=== PATIENT | male | born 1985 | race American Indian/Alaskan Native ===

== ENCOUNTER 2017-06-10 07:03 | Day surgery (SDC) | payer MEDICAID ==
[2017-06-10] MEDS ORDERED: Lidocaine 2% Jelly (Uro-Jet) ONE (09:57)
[2017-06-10] MEDS ORDERED: cefTRIAXone (Rocephin) 1 gm Inj ONE (09:57)
[2017-06-10] MEDS ORDERED: Chlorhexidine Gluconate 2OZ GEL TP ONE (10:25)
[2017-06-10] MEDS ORDERED: Iohexol 240 200 ML IJ ONE ×2 (10:25→11:00)
[2017-06-10] MEDS ORDERED: Lactated Ringer's 1,000 ML IV ONE (10:33)
[2017-06-10] MEDS ORDERED: Midazolam 2 MG/2 ML VIAL ONE ×3 (10:33→10:59)
[2017-06-10] MEDS ORDERED: cefTRIAXone (Rocephin) 1 gm Inj IVPB ONE (10:45)
[2017-06-10] MEDS ORDERED: Propofol 10 mg/ml Inj (20 ML) ONE (11:05)
[2017-06-10] MEDS ORDERED: Lactated Ringer's 1,000 ML IV SCH (11:21)
[2017-06-10] MEDS: HYDROmorphone 0.5 mg/0.5 ml ISec IVP PRN ×3 (11:30→12:00)
[2017-06-10 11:37] VITALS: O2SAT 100
--- NOTE | 2017-06-10 13:53 | RAD ---
PROCEDURE: Intraoperative Fluoroscopy. HISTORY: CYSTO FINDINGS: Fluoroscopic assistance was provided for cystoscopy and retrograde. fluoroscopic time (continuous mode) utilized during the procedure: 0.3 minutes.
[2017-06-10 14:12] VITALS: BP 124/70; PULSE 85; RESP 19; TEMP 97.2
--- NOTE | 2017-06-11 02:33 | OP ---
DATE: 06/10/2017 PREOPERATIVE DIAGNOSIS: Recurrent urinary tract infection. POSTOPERATIVE DIAGNOSIS: Recurrent urinary tract infection. PROCEDURE PERFORMED: Cystoscopy with a cystogram and a retrograde pyelogram on the left side. DESCRIPTION OF THE PROCEDURE: The patient was placed on the operating table in the dorsal lithotomy position. The area was prepped and draped in a sterile manner. Using a #21 cystoscope, I entered into bladder atraumatically and without much difficulty and once inside the bladder, bilateral ureteral orifices were identified. At this time, I did first an initial cystogram under pressure to see if there was any evidence of vesicoureteral reflux and consequently the bladder was filled quite distinctively. I added abdominal pressure for added measure and did not confirm any vesicoureteral reflux something that he had, had in the past diagnosed. Following this, then I emptied the bladder and then re-cystoscoped the patient identified the left urethral orifice, inserted a cone tip ureteral catheter and injected 10 mL of contrast in the lower half of the ureter to show that there was no hydroureter and no stricture. Then, advanced the ureteral catheter to the mid ureter, injected another 10 mL identified the outline of the renal pelvis and the renal . There was no hydronephrosis. Immediately, after removing the ureteral catheter, most of the dye was eliminated proper. With this information noted, the patient then was taken from the operating room in good condition. Kristin Mckeon MD
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
== END 2017-06-10 16:00 | disposition home or self-care (01) ==
LOC: H.OPSURG 07:03
PROVIDERS: ATTEND Urology
DX: N39.0 Urinary tract infection, site not specified (principal)

== ENCOUNTER 2017-06-10 14:06 | Emergency (ER) | payer MEDICAID ==
[2017-06-10 14:49] VITALS: RESP 19
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
[2017-06-10 15:56] VITALS: BP 126/78; PULSE 78; TEMP 97.6
[2017-06-10 18:43] VITALS: O2SAT 96
== END 2017-06-10 15:56 | disposition home or self-care (01) ==
LOC: H.ER 14:06
DX: F41.9 Anxiety disorder, unspecified (principal); R45.851 Suicidal ideations; Z79.01 Long term (current) use of anticoagulants

== ENCOUNTER 2017-10-07 13:42 | Emergency (ER) | payer MEDICAID ==
[2017-10-07 14:19] VITALS: BMI 48.6
[2017-10-07 14:21] VITALS: BP 115/73; PULSE 92; RESP 18; TEMP 98.1; O2SAT 99
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
[2017-10-07] MEDS ORDERED: Morphine 5 MG/ML SYRINGE IM STA (16:22)
[2017-10-07] MEDS ORDERED: Morphine 4 MG/ML VIAL IM STA (16:35)
[2017-10-07] MEDS ORDERED: Morphine 4 MG/ML VIAL ONE (16:37)
--- NOTE | 2017-10-07 18:21 | US ---
Left lower extremity ultrasound. Indication: Rule out DVT Technique: Duplex ultrasound evaluation of the left lower extremity Comparison: None available Findings: There is normal flow, compressibility, and augmentation of the left common femoral, femoral, and popliteal veins. The left posterior tibial veins appear patent. Impression: No evidence of deep venous thrombosis in the left lower extremity.
== END 2017-10-07 19:14 | disposition home or self-care (01) ==
LOC: H.ER 13:42
DX: M79.605 Pain in left leg (principal); Z76.0 Encounter for issue of repeat prescription; F32.9 Major depressive disorder, single episode, unspecified; F41.9 Anxiety disorder, unspecified; J45.909 Unspecified asthma, uncomplicated; Z86.718 Personal history of other venous thrombosis and embolism; Z88.5 Allergy status to narcotic agent
CPT/HCPCS: 93971; 96372; 99283; J2270

== ENCOUNTER 2017-10-10 23:41 | Emergency (ER) | payer MEDICAID ==
[2017-10-10 23:41] VITALS: BMI 48.6
--- NOTE | 2017-10-11 00:23 | ED PDOC ---
HPI: Psych/Substance Abuse Time Seen by Provider: 10/10/17 23:57 Chief Complaint (Nursing): Psychiatric Evaluation Chief Complaint (Provider): psych eval Additional Complaint(s): 32yo M in ED for eval of depression-states that today he has been feeling more depressed than usual-states that he has been self harming via cutting left upper arm. no SI/HI. hx of bipolar not taking medication nor seeing a psychiatrist. Past Medical History Reviewed: Historical Data, Nursing Documentation, Vital Signs Vital Signs: Last Vital Signs Temp 98.1 F 10/11/17 00:10 Pulse 103 H 10/11/17 00:10 Resp 18 10/11/17 00:10 BP 147/78 10/11/17 00:10 Pulse Ox 98 10/11/17 00:10 - Medical History PMH: Anxiety, Asthma, Depression, Deep Vein Thrombosis Denies: Anemia, Diabetes, Hepatitis, HIV, HTN, Chronic Kidney Disease, Seizures, Sexually Transmitted Disease - Surgical History Surgical History: Tonsillectomy - Family History Family History: States: Unknown Family Hx - Home Medications Home Medications: Ambulatory Orders Medication Instructions Recorded Imipramine HCl 25 mg PO BID 06/10/17 Phenazopyridine HCl [Pyridium] 200 mg PO BID #10 tablet 06/10/17 Rivaroxaban [Xarelto] 20 mg PO DAILY 06/10/17 Rivaroxaban [Xarelto] 1 tab PO DAILY #10 tab 10/07/17 - Allergies Allergies/Adverse Reactions: Allergies Allergy/AdvReac Type Severity Reaction Status Date / Time fentanyl Allergy SHORTNESS Verified 10/11/17 00:10 OF BREATH sulfamethoxazole Allergy SHORTNESS Verified 10/11/17 00:10 [From Bactrim] OF BREATH trimethoprim [From Bactrim] Allergy SHORTNESS Verified 10/11/17 00:10 OF BREATH acetaminophen [From Percocet] AdvReac VOMITING Verified 10/11/17 00:10 oxycodone [From Percocet] AdvReac VOMITING Verified 10/11/17 00:10 Review of Systems ROS Statement: Except As Marked, All Systems Reviewed And Found Negative Psych: Positive for: Depression Physical Exam - Reviewed Nursing Documentation Reviewed: Yes Vital Signs Reviewed: Yes - Physical Exam Appears: Positive for: Well, Non-toxic, No Acute Distress Head Exam: Positive for: ATRAUMATIC, NORMAL INSPECTION, NORMOCEPHALIC Skin: Positive for: Normal Color, Warm, Rash (abrasion noted to left upper arm. no active bleeding. ) Cardiovascular/Chest: Positive for: Regular Rate, Rhythm Respiratory: Positive for: CNT, Normal Breath Sounds Neurologic/Psych: Positive for: Alert, Oriented - ECG O2 Sat by Pulse Oximetry: 98 - Progress ED Course And Treament: pt in room with friend. pt will get crisis evaluation. Medical Decision Making Medical Decision Making: pt will be d.c with dx of depression under Md Musa pt feels stable to go home. Disposition - Clinical Impression Clinical Impression: Depression - Patient ED Disposition Is Patient to be Admitted: No Counseled Patient/Family Regarding: Need For Followup - Disposition Disposition: Routine/Home Disposition Time: 01:33 Condition: STABLE Instructions: Depression (DC) Forms: Official [employer] (Liberian)
[2017-10-11 02:21] VITALS: BP 141/80; PULSE 86; RESP 17; TEMP 98; O2SAT 99
== END 2017-10-11 01:50 | disposition home or self-care (01) ==
LOC: H.ER 23:41
DX: F32.9 Major depressive disorder, single episode, unspecified (principal); F41.9 Anxiety disorder, unspecified; J45.909 Unspecified asthma, uncomplicated; Z86.718 Personal history of other venous thrombosis and embolism; Z88.5 Allergy status to narcotic agent

== ENCOUNTER 2017-12-13 03:50 | Inpatient (IN) | payer MEDICAID ==
[2017-12-13 03:51] VITALS: BMI 48.6
--- NOTE | 2017-12-13 04:23 | ED PDOC ---
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 Patient states he hasn't been taking his blood thinners because he feels depressed about it but denies suicidal or homicidal ideation. PMD: Dr. Fu Past Medical History Reviewed: Historical Data, Nursing Documentation, Vital Signs Vital Signs: Last Vital Signs Temp 98.3 F 12/13/17 04:08 Pulse 80 12/13/17 06:22 Resp 18 12/13/17 06:22 BP 100/67 12/13/17 06:22 Pulse Ox 98 12/13/17 06:22 - Medical History PMH: Anxiety, Asthma, Depression, Deep Vein Thrombosis, Pulmonary Embolism Denies: Anemia, Diabetes, Hepatitis, HIV, HTN, Chronic Kidney Disease, Seizures, Sexually Transmitted Disease Other PMH: Protein S Deficiency - Surgical History Surgical History: Tonsillectomy - Family History Family History: States: Unknown Family Hx - Home Medications Home Medications: Ambulatory Orders Medication Instructions Recorded Warfarin [Coumadin] 5 mg PO DAILY 12/13/17 - Allergies Allergies/Adverse Reactions: Allergies Allergy/AdvReac Type Severity Reaction Status Date / Time fentanyl Allergy SHORTNESS Verified 12/13/17 05:26 OF BREATH sulfamethoxazole Allergy SHORTNESS Verified 12/13/17 05:26 [From Bactrim] OF BREATH trimethoprim [From Bactrim] Allergy SHORTNESS Verified 12/13/17 05:26 OF BREATH acetaminophen [From Percocet] AdvReac VOMITING Verified 12/13/17 05:26 oxycodone [From Percocet] AdvReac VOMITING Verified 12/13/17 05:26 Review of Systems ROS Statement: Except As Marked, All Systems Reviewed And Found Negative Constitutional: Positive for: Fever ENT: Positive for: Nose Congestion Respiratory: Positive for: Cough, Shortness of Breath Psych: Positive for: Depression. Negative for: Suicidal ideation, Other ( homicidal ideation) Physical Exam - Physical Exam Appears: Positive for: Non-toxic, No Acute Distress. Negative for: Well (obese) Head Exam: Positive for: ATRAUMATIC, NORMAL INSPECTION, NORMOCEPHALIC Skin: Positive for: Normal Color, Warm, Dry Eye Exam: Positive for: EOMI, Normal appearance, PERRL ENT: Positive for: Normal ENT Inspection Neck: Positive for: Normal, Painless ROM, Supple Cardiovascular/Chest: Positive for: Regular Rate, Rhythm. Negative for: Murmur Respiratory: Positive for: Normal Breath Sounds. Negative for: Respiratory Distress Gastrointestinal/Abdominal: Positive for: Normal Exam, Bowel Sounds, Soft. Negative for: Tenderness Back: Positive for: Normal Inspection Extremity: Positive for: Normal ROM. Negative for: Pedal Edema, Calf Tenderness , Deformity, Other (Jose's Sign) Neurologic/Psych: Positive for: Alert, Oriented - Laboratory Results Result Diagrams: 12/13/17 04:43 12/13/17 04:43 - ECG O2 Sat by Pulse Oximetry: 100 (RA) Pulse Ox Interpretation: Normal Medical Decision Making Medical Decision Making: Time: 4:17 Initial Impression: Viral Illness vs Influenza rule out Pulmonary Embolism Initial Plan: --EKG --BMP --Troponin --CBC --D Dimer --PTT --Prothrombin Time --Chest XR --Toradol --Phenergan --Flu Swab 0700 IMPRESSION: There is a filling defect identified within a RIGHT lower lobe segmental pulmonary artery branch on axial image 64/133 of series 3. Although the bolus is poor and there is misregistration artifact in this region, it is conspicuous enough to be of concern for a tiny pulmonary embolus. In a similar location on the LEFT involving LEFT lower lobe pulmonary subsegmental vessels, there are suspected areas of misregistration which are not diagnostically evaluated due to misregistration of the bolus combined with motion involving these petering vessels. Spoke with patient, will treat w/ lovenox for suspected PE. Case discussed with Dr. Arreaga. Scribe Attestation: Documented by Bruce Jackman, acting as a scribe for Dr. Bob Holguin MD Provider Scribe Attestation: All medical record entries made by the Scribe were at my direction and personally dictated by me. I have reviewed the chart and agree that the record accurately reflects my personal performance of the history, physical exam, medical decision making, and the department course for this patient. I have also personally directed, reviewed, and agree with the discharge instructions and disposition. Disposition - Clinical Impression Clinical Impression: Pulmonary embolism - Disposition Referrals: Paras Ross MD [Primary Care Provider] - Disposition Time: 07:00 Condition: GUARDED Forms: [facility] (Luxembourgish)
[2017-12-13] MEDS ORDERED: Promethazine 12.5 mg/10 ml Syrup PO STA (04:24)
[2017-12-13] MEDS ORDERED: Promethazine 6.25 MG/5 ML CUP ONE (04:26)
[2017-12-13 04:59] LABS: BLOOD UREA NITROGEN 9 mg/dl (9-20); CALCIUM 8.7 mg/dL (8.4-10.2); GFR AFRICAN-AMERICAN > 60; GFR NON-AFRICAN AMERICAN > 60
[2017-12-13 05:01] LABS: INR 1.1 (0.9-1.2); PARTIAL THROMBOPLASTIN TIME 23.8 Seconds (25.6-37.1)
[2017-12-13] MEDS ORDERED: Iodixanol 320 MG/ML 100 ML BOTTLE IV ONE (05:36)
[2017-12-13] MEDS ORDERED: Sodium Chloride 0.9% 50 ML IV ONE (05:37)
[2017-12-13] MEDS ORDERED: Iodixanol 320 mg/ml 50 ml Sol IV ONE (05:37)
[2017-12-13 06:03] LABS: BASO % 0.5 % (0.0-2.0); EOS # 0.3 K/uL (0.0-0.7); HEMOGLOBIN 12.6 g/dL (12.0-18.0); LYMPH # 1.9 K/uL (1.0-4.3); LYMPH % 21.8 % (20.0-40.0); MEAN CELL VOLUME 78.8 fl (80.0-94.0); MEAN CORPUSCULAR HEMOGLOBIN 24.8 pg (27.0-31.0); MEAN CORPUSCULAR HGB CONC 31.5 g/dL (33.0-37.0); MEAN PLATELET VOLUME 8.1 fl (7.2-11.7); MONO # 0.6 K/uL (0.0-0.8); MONO % 7.6 % (0.0-10.0); NEUT # 5.6 K/uL (1.8-7.0); NEUT % 66.1 % (50.0-75.0); NRBC % 0.1 % (0.0-0.0); RBC 5.09 Mil/uL (4.40-5.90); RED CELL DISTRIBUTION WIDTH 19.2 % (11.5-14.5); WHITE BLOOD COUNT 8.5 K/uL (4.8-10.8)
--- NOTE | 2017-12-13 07:03 | CT ---
EXAM: CT Angiography Chest With Intravenous Contrast EXAM DATE/TIME: Examination ordered 12/13/2017 5:12 AM. Image number total count reviewed [id number] CLINICAL HISTORY: The patient is 32 years old and is male; Pain; Chest pain; Additional info: HX of mult pe/dvts, cp, SOB Facility exam id and description: [facility] angio chest pe protocol TECHNIQUE: Axial computed tomographic angiography images of the chest with intravenous contrast using pulmonary embolism protocol. All CT scans at this facility use one or more dose reduction techniques, viz.: automated exposure control; ma/kV adjustment per patient size (including targeted exams where dose is matched to indication; i.e. head); or iterative reconstruction technique. MIP reconstructed images were created and reviewed. Coronal and sagittal reformatted images were created and reviewed. CONTRAST: 120 mL of administered intravenously. COMPARISON: CR - CHEST TWO VIEWS (PA/LAT) 2017-12-13 04:35 FINDINGS: LIMITATIONS: The study is compromised by patient body habitus. PULMONARY ARTERIES: There is a filling defect identified within a RIGHT lower lobe segmental pulmonary artery branch on axial image 64/133 of series 3. The contrast bolus is adequately timed. AORTA: The thoracic aorta is unremarkable without aneurysm or dissection. LUNGS: Evaluation of the pulmonary parenchyma reveals NO suspicious pulmonary nodules. NO focal consolidation. PLEURAL SPACE: NO pleural effusions are identified. No pneumothorax. HEART: Heart size is enlarged. There is NO pericardial effusion. No evidence of RV dysfunction. BONES/JOINTS: No acute fracture. SOFT TISSUES: Unremarkable. LYMPH NODES: There is NO appreciable hilar, mediastinal or axillary lymphadenopathy. UPPER ABDOMEN: In the upper abdomen, NO discrete abnormality is seen. IMPRESSION: There is a filling defect identified within a RIGHT lower lobe segmental pulmonary artery branch on axial image 64/133 of series 3. Although the bolus is poor and there is misregistration artifact in this region, it is conspicuous enough to be of concern for a tiny pulmonary embolus. In a similar location on the LEFT involving LEFT lower lobe pulmonary subsegmental vessels, there are suspected areas of misregistration which are not diagnostically evaluated due to misregistration of the bolus combined with motion involving these petering vessels.
[2017-12-13] MEDS ORDERED: Enoxaparin 150 mg Syringe SC STA (07:20)
--- NOTE | 2017-12-13 09:52 | RAD ---
HISTORY: Chest pain. Shortness of breath. COMPARISON: Chest 09/04/2017 TECHNIQUE: Chest PA and lateral FINDINGS: LUNGS: No active pulmonary disease. PLEURA: No significant pleural effusion identified. No pneumothorax apparent. CARDIOVASCULAR: Normal. OSSEOUS STRUCTURES: Very minor multilevel degenerative spondylosis of the thoracic spine. Tech. VISUALIZED UPPER ABDOMEN: Normal. OTHER FINDINGS: None. IMPRESSION: No active disease.
--- NOTE | 2017-12-13 11:14 | CARD ---
APPROVED REPORT EKG Measurement Heart [id number] ND [id number] <Conclusion> Normal sinus rhythm Cannot rule out Anterior infarct, age undetermined (Check placement of V2 and V3 leads) Abnormal ECG
[2017-12-13] MEDS ORDERED: Azithromycin 500 MG in Sodium Chloride 0.9% 250 ML IVPB SCH (13:30)
--- NOTE | 2017-12-13 14:06 | NM ---
COMPARISON: December 13, 2017. single-view chest December 13, 2017. CT pulmonary angiogram TECHNIQUE: 42.8 mCi technetium 99-m DTPA aerosol. 5.46 mCI technetium 99-m MAA administered intravenously. FINDINGS: VENTILATION COMPONENT: Heterogeneous ventilation. Retention of radionuclide in the tracheobronchial tree and ingestion of radionuclide in the stomach, incidental findings PERFUSION COMPONENT: Heterogeneous profusion particularly in the periphery of the right lung and IMPRESSION: Low probability ventilation perfusion scan for pulmonary embolism.
[2017-12-13] MEDS: Promethazine 12.5 mg/10 ml Syrup PO PRN (22:24)
--- NOTE | 2017-12-14 00:05 | HP ---
CHIEF COMPLAINT: Chest pain, fever, cough, and congestion. HISTORY OF PRESENT ILLNESS: This is a 32-year-old male with known case of protein S deficiency who was on Coumadin jail and had stopped taking it for a few weeks ago and was feeling sick for the last few days and started having fever, cough, congestion and also started having chest pain and shortness of breath, so the patient was brought to the emergency room, then the patient was found to have pulmonary embolism and was admitted for further management. REVIEW OF SYSTEMS: Positive for fever, cough, congestion, dyspnea, chest pain, and shortness of breath. Review of systems otherwise is negative for headache, dizziness, syncope, loss of consciousness, nausea, vomiting, diarrhea, constipation, anemia, joint or extremity pain. Review of systems of all other organ system is unremarkable. PAST MEDICAL HISTORY: Significant for protein S deficiency, DVT and pulmonary embolism in the past, asthma, depression, and anxiety. PAST SURGICAL HISTORY: Remarkable for tonsillectomy. PERSONAL HISTORY: The patient is currently nonsmoker and nondrinker. No substance abuse. MEDICATIONS: The patient was supposed to be on warfarin, but the patient was not taking it recently. ALLERGIES: THE PATIENT IS ALLERGIC TO FENTANYL, BACTRIM, TYLENOL, AND PERCOCET. FAMILY HISTORY: Noncontributory. PHYSICAL EXAMINATION: GENERAL: Well-built, well-nourished, grossly overweight 32-year-old male, in no acute distress. VITAL SIGNS: Temperature 98.4, pulse 94, respirations 20, and blood pressure 124/77. HEENT: Pupils reacting to light. No JVD. No thyromegaly. No lymphadenopathy. No nystagmus. Normocephalic and atraumatic skull. HEART: S1 and S2 normal and regular. No significant murmur, gallop, or rub is heard. LUNGS: Shows good bilateral air exchange. No rales or rhonchi. ABDOMEN: Soft and nontender. No organomegaly. No fluid. Bowel sounds are plus and normal. EXTREMITIES: No edema. No calf swelling. No tenderness. No acute ischemia. CENTRAL NERVOUS SYSTEM: Essentially unchanged and there is no sign of any acute gross focal motor or sensory neurological deficits. DIAGNOSTIC DATA: Available diagnostic data reviewed. WBC 8.5, hemoglobin 12.6, hematocrit 40.1, and platelets 289,000. PT 12 and PTT 23.8. Sodium 145, potassium 4.1, chloride 107, bicarb 24, BUN 18, and creatinine 0.9. Influenza test is negative. Chest x-ray is clear. EKG does not reveal any acute ST, T changes. CAT scan of chest is suggestive, but not conclusive of pulmonary embolism. V/Q scan is pending. ADMITTING IMPRESSION: Pulmonary embolism, protein S deficiency, upper respiratory tract infection, asthma, depression and anxiety, morbid obesity, and body mass index of 48.7. PLAN: As ordered. Case and plan discussed with the patient. Asael Arreaga MD
[2017-12-14] MEDS: Promethazine 12.5 mg/10 ml Syrup PO PRN ×2 (07:07→20:33)
[2017-12-14] MEDS ORDERED: Enoxaparin 60 mg Syringe SC SCH (09:00)
--- NOTE | 2017-12-14 09:03 | PN ---
DATE: 12/14/2017 SUBJECTIVE: The patient is seen and examined. Interim events noted. The patient remains in the Progressive Care Unit on telemetry monitoring. The patient feels okay. He states coughing . The patient has extensive snoring. The patient heart rate also went down during sleep consistent with sleep apnea. The patient denies any chest pain and no shortness of breath. PHYSICAL EXAMINATION: GENERAL: The patient is in no acute distress. VITAL SIGNS: Stable. HEART: S1 and S2, normal and regular. LUNGS: Good bilateral air exchange. ABDOMEN: Soft and nontender. EXTREMITIES: No edema. No calf swelling. No tenderness. No acute ischemia. CENTRAL NERVOUS SYSTEM: Exam is essentially unchanged. DIAGNOSTIC DATA: Available diagnostic data reviewed. Telemetry monitoring shows bradycardia, but no other significant arrhythmias. V/Q scan is negative. Serial labs are pending. ASSESSMENT AND PLAN: Overall, the patient is clinically stable. Plan as ordered. Asael Arreaga MD
[2017-12-14] MEDS: Enoxaparin 150 mg Syringe SC SCH ×2 (09:08→22:05)
[2017-12-14 17:00] LABS: PROTHROMBIN TIME 11.8 Seconds (9.8-13.1)
[2017-12-14 17:01] LABS: INR 1.1 (0.9-1.2)
[2017-12-14] MEDS ORDERED: Morphine 15 mg Immediate Release Tab PO ONE (20:12)
--- NOTE | 2017-12-14 21:05 | CON ---
DATE: HISTORY OF PRESENT ILLNESS: The patient is a 32-year-old morbidly obese male who weighs 320 pounds, who has a history of protein S deficiency, which runs in his family. His father had the same condition. The patient was diagnosed with multiple pulmonary embolism and multiple DVTs with total of 3 diagnoses of pulmonary emboli. The patient can remember that I saw him was last year. The patient was initially placed on Xarelto, but did not switch to Coumadin. The patient does follow with Dr. Gonzales at [facility] and could not give an explanation why he has to go to [facility] to follow up his lab results while he lives in [place]. The patient presented because of chest discomfort, shortness of breath, and wheezing. The patient is nonsmoker and according to him, nobody else smokes at home. The patient has no prior history of bronchial asthma. SOCIAL HISTORY: The patient is an occasional drinker. He is nonsmoker. 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 REVIEW OF SYSTEMS: No fever or chills. No productive cough. MEDICATIONS: Coumadin 5 mg daily, Lovenox 150 mg subcutaneously twice a day, Phenergan syrup 12.5 mg t.i.d., and Zithromax 500 mg orally daily. PHYSICAL EXAMINATION: GENERAL: The patient is a morbidly obese male who does not appear to be in any acute distress. VITAL SIGNS: Blood pressure 120/83, heart rate 78, temperature 98.2, and respirations 18. HEENT: Normocephalic. CHEST: Bilateral rhonchi. HEART: S1 and S2 regular and distant. ABDOMEN: Soft. EXTREMITIES: 1+ pitting edema. No calf tenderness. LABORATORY DATA: Hemoglobin, hematocrit, white count, and platelet count today are within limits. SMA-7 is within normal limits. One set of troponin is negative. D-dimer is 488. INR is 1.1. Ventilation/perfusion scan low probability for PE. Chest CT angio was subsequently performed and revealed a filling defect within the right lower lobe segment over the pulmonary artery branch, and there is artifact in the region. It is suspicious enough to be of concern for tiny pulmonary embolus. ASSESSMENT: 1. Recurrent pulmonary embolism. 2. Protein S deficiency. The patient's INR was significantly subtherapeutic. 3. Obesity. RECOMMENDATIONS: Continue therapeutic subcutaneous Lovenox and continue Coumadin 5 mg once a day. Continue oral Zithromax. Repeat chest EKG as there is possibility of lead V1 to V3 reversal. Obtain an echocardiogram and urine drug screen. Kelvin Valdez MD
[2017-12-15 02:09] LABS: BARBITURATES, UR NEGATIVE (NEGATIVE); BENZODIAZEPINES, UR NEGATIVE (NEGATIVE); OPIATES, UR NEGATIVE (NEGATIVE); PHENCYCLIDINE, UR NEGATIVE (NEGATIVE)
[2017-12-15 08:52] LABS: HEMOGLOBIN 12.2 g/dL (12.0-18.0); MEAN CELL VOLUME 78.8 fl (80.0-94.0); MEAN CORPUSCULAR HEMOGLOBIN 24.9 pg (27.0-31.0); MEAN CORPUSCULAR HGB CONC 31.6 g/dL (33.0-37.0); RBC 4.91 Mil/uL (4.40-5.90); RED CELL DISTRIBUTION WIDTH 19.5 % (11.5-14.5); WHITE BLOOD COUNT 7.6 K/uL (4.8-10.8)
[2017-12-15 08:58] LABS: INR 1.2 (0.9-1.2); PROTHROMBIN TIME 12.9 Seconds (9.8-13.1)
[2017-12-15 09:09] LABS: ALBUMIN 3.6 g/dL (3.5-5.0); ALT/SGPT 37 U/L (21-72); AST/SGOT 34 U/L (17-59); BLOOD UREA NITROGEN 9 mg/dl (9-20); CALCIUM 8.7 mg/dL (8.4-10.2); GFR AFRICAN-AMERICAN > 60; GFR NON-AFRICAN AMERICAN > 60
[2017-12-15] MEDS: Enoxaparin 150 mg Syringe SC SCH ×2 (09:17→20:54)
--- NOTE | 2017-12-15 11:11 | CARD ---
APPROVED REPORT EXAM: Two-dimensional and M-mode echocardiogram with Doppler and color Doppler. Other Information Quality : Technically LimitedRhythm : NSR Technically limited study due to body habitus. INDICATION Pulmonary Embolism 2D DIMENSIONS IVSd1.36 (0.7-1.1cm)LVDd4.77 (3.9-5.9cm) LVOT Diameter2.19 (1.8-2.4cm)PWd0.66 (0.7-1.1cm) IVSs1.63 (0.8-1.2cm)LVDs3.31 (2.5-4.0cm) FS (%) 30.5 %PWs1.81 (0.8-1.2cm) M-Mode DIMENSIONS Left Atrium (MM)3.78 (2.5-4.0cm)IVSd1.32 (0.7-1.1cm) Aortic Root2.72 (2.2-3.7cm)LVDd4.65 (4.0-5.6cm) Aortic Cusp Exc.1.21 (1.5-2.0cm)PWd1.25 (0.7-1.1cm) IVSs1.59 cmFS (%) 24 % LVDs3.55 (2.0-3.8cm)PWs1.47 cm Mitral Valve MV E Hqtxnbkz66.3cm/sMV DECEL [id number] A Ijelskev68.8cm/s MV PRB30faP/A ratio1.1MVA (PHT)3.03cm2 TDI Lateral E' Peak V9.61cm/sMedial E' Peak V10.76cm/sE/Lateral E'6.5 E/Medial E'5.8 Pulmonary Valve PV Peak Hgwgihns934.1cm/s LEFT VENTRICLE The left ventricle is normal size. There is normal left ventricular wall thickness. Left ventricle systolic function is normal. The Ejection Fraction is 55-60%. There is normal LV segmental wall motion. The left ventricular diastolic function is normal. RIGHT VENTRICLE The right ventricle is normal size. There is normal right ventricular wall thickness. The right ventricular systolic function is normal. ATRIA The left atrium size is normal. The right atrium size is normal. AORTIC VALVE The aortic valve is normal in structure. No aortic regurgitation is present. There is no aortic valvular stenosis. MITRAL VALVE The mitral valve is normal in structure. There is no evidence of mitral valve prolapse. There is no mitral valve stenosis. There is no mitral valve regurgitation noted. TRICUSPID VALVE The tricuspid valve is normal in structure. There is no tricuspid valve regurgitation noted. PULMONIC VALVE The pulmonary valve is normal in structure. There is no pulmonic valvular regurgitation. GREAT VESSELS The aortic root is normal in size. Due to poor image quality, the IVC could not be assessed. PERICARDIAL EFFUSION The pericardium appears normal. <Conclusion> Echo window was suboptimal. The images were poor in quality. The left ventricle is normal size. There is normal left ventricular wall thickness. There is normal LV segmental wall motion. Left ventricle systolic function is normal. The Ejection Fraction is 55-60%. The left ventricular diastolic function is normal.
--- NOTE | 2017-12-15 11:23 | CARD ---
APPROVED REPORT EKG Measurement Heart [id number] <Conclusion> Normal sinus rhythm Nonspecific ST abnormality Abnormal ECG
[2017-12-15] MEDS: Albuterol 0.042% Inhal Sol (1.25 mg/3 mL) UD INH SCH ×2 (14:11→19:43)
[2017-12-15] MEDS: Promethazine 12.5 mg/10 ml Syrup PO PRN ×2 (15:15→20:55)
--- NOTE | 2017-12-15 17:51 | PN ---
DATE: SUBJECTIVE: The patient denies any chest pain or any complaints of wheezing. PHYSICAL EXAMINATION: VITAL SIGNS: Blood pressure 119/87, heart rate 84, temperature 98, and respirations 18. HEENT: Normocephalic. CHEST: Bilateral rhonchi and minimal scattered wheezing. HEART: S1 and S2 regular. EXTREMITIES: With 1+ pitting edema. LABORATORY DATA: SMA-7 is within normal limits except for carbon dioxide of 32. Urine drug screen is negative. Hemoglobin, hematocrit, white count, and platelet count today are within normal limits. ASSESSMENT: 1. Recurrent pulmonary embolus. 2. Protein S deficiency. 3. Morbid obesity. 4. Bronchospasm. RECOMMENDATIONS: Continue therapeutic subcutaneous Lovenox 60 mg twice a day, continue oral Zithromax 500 mg daily, start albuterol inhaler q.6 hours., and Coumadin 7.5 mg will be administered today. Kelvin Valdez MD
[2017-12-16] MEDS: Albuterol 0.042% Inhal Sol (1.25 mg/3 mL) UD INH SCH ×4 (01:21→19:29)
[2017-12-16 06:04] LABS: HEMOGLOBIN 12.6 g/dL (12.0-18.0); MEAN CELL VOLUME 79.9 fl (80.0-94.0); MEAN CORPUSCULAR HEMOGLOBIN 24.4 pg (27.0-31.0); MEAN CORPUSCULAR HGB CONC 30.5 g/dL (33.0-37.0); RBC 5.17 Mil/uL (4.40-5.90); WHITE BLOOD COUNT 7.6 K/uL (4.8-10.8)
[2017-12-16 06:18] LABS: ALB/GLOB RATIO 1.1 (1.0-2.1); ALBUMIN 3.8 g/dL (3.5-5.0); ALT/SGPT 44 U/L (21-72); AST/SGOT 40 U/L (17-59); BLOOD UREA NITROGEN 9 mg/dl (9-20); CALCIUM 8.9 mg/dL (8.4-10.2); GFR AFRICAN-AMERICAN > 60; GFR NON-AFRICAN AMERICAN > 60
[2017-12-16 06:28] LABS: PROTHROMBIN TIME 19.1 Seconds (9.8-13.1)
[2017-12-16 06:29] LABS: INR 1.9 (0.9-1.2)
--- NOTE | 2017-12-16 07:58 | PN ---
DATE: 12/15/2017 SUBJECTIVE: The patient is seen and examined. Interim events noted. Consults noted and appreciated. Cardiology followup and interventions noted and appreciated. The patient remains in Progressive Care Unit on telemetry monitoring. The patient feels okay. No chest pain. No shortness of breath. Not able to sleep well. PHYSICAL EXAMINATION: GENERAL: The patient is in no acute distress. VITAL SIGNS: Stable. HEART: S1 and S2, normal and regular. LUNGS: Good bilateral air exchange. ABDOMEN: Soft and nontender. EXTREMITIES: No edema. No calf swelling. No tenderness. No acute ischemia. CENTRAL NERVOUS SYSTEM: Exam is essentially unchanged. DIAGNOSTIC DATA: Available diagnostic data reviewed. Telemetry monitoring does not reveal significant arrhythmias. PT/INR is still subtherapeutic. ASSESSMENT AND PLAN: The patient is on anticoagulation for his protein S deficiency. Also he is on Coumadin. PT and INR is being monitored. Plan as ordered. Case and plan discussed with the patient. Asael Arreaga MD
--- NOTE | 2017-12-16 08:31 | PQF GENQUE ---
This form is a permanent part of the medical record 12/16/17 Dr. Arreaga, Please clarify the type and acuity of asthma. 1. Please clarify type of asthma: Childhood Cough variant Exercise induced Late onset Mild intermittent Mild persistent Moderate persistent Severe persistent With bronchitis(please clarify acuity of bronchitis) With chronic lung disease (please document specific chronic lung disease) Other (please specify) Clinically unable to determine Unknown 2. Please clarify acuity of asthma: Uncomplicated With exacerbation(acute) With status asthmaticus Other (please specify) Clinically unable to determine Unknown Documentation of a history of Asthma. Being admitted for a pulmonary embolism. Progress note 12/15 cardiology noted some scattered minimal wheezing and started the patient on Albuterol inhaler q 6 hours. Clarification of your documentation is requested to better reflect the severity of illness and intensity of treatment of your patient. Indicators present [] Specify: [] [] Specify: [] [] Specify: [] [] Specify: [] Location in the medical record that reflects the above clinical findings: [] Treatment Provided: [] PHYSICIAN'S RESPONSE Based on your medical judgment of the clinical indicators outlined above please clarify the following: [] Practitioner response [] If unable to determine, please check the box, sign and date. Present On Admission (POA) Indicator: [] Present at the time of admission [] Not present at the time of admission [] Clinically Undetermined In responding to this query, please exercise your independent professional judgment. The fact that a question is asked does not imply that any particular answer is desired or expected. Thank you for your clarification on this documentation. If you have any questions please call:ext [phone] * Thank you, Rut Cristina RN CDMP MTDD
[2017-12-16] MEDS: Enoxaparin 150 mg Syringe SC SCH ×2 (09:52→22:12)
[2017-12-16] MEDS: Promethazine 12.5 mg/10 ml Syrup PO PRN ×3 (09:52→22:13)
--- NOTE | 2017-12-16 13:27 | PN ---
DATE: SUBJECTIVE: The patient is still wheezing. PHYSICAL EXAMINATION: VITAL SIGNS: Blood pressure 115/75, heart rate 86, temperature 97.3, and respirations 18. HEENT: Normocephalic. CHEST: Bilateral rhonchi and scattered wheezing. HEART: S1 and S2 regular. EXTREMITIES: Trace leg edema. LABORATORY DATA: Today's SMA-7 is within normal limits. Today's hemoglobin, hematocrit, white count and platelet count are within normal limits. Today's INR is 1.9. ASSESSMENT: 1. Recurrent pulmonary embolus. 2. Protein S deficiency. 3. Bronchospasm. RECOMMENDATIONS: Continue current oral Zithromax and therapeutic subcutaneous Lovenox. Increase Coumadin to 7.5 mg today. Obtain chest x-ray PA and lateral. Kelvin Valdez MD
--- NOTE | 2017-12-16 16:59 | RAD ---
HISTORY: Shortness of breath. COMPARISON: GO 2018. TECHNIQUE: Chest PA and lateral FINDINGS: LUNGS: No active pulmonary disease. PLEURA: No significant pleural effusion identified. No pneumothorax apparent. CARDIOVASCULAR: Normal. OSSEOUS STRUCTURES: No significant abnormalities. VISUALIZED UPPER ABDOMEN: Normal. OTHER FINDINGS: None. IMPRESSION: No active disease. No significant interval change compared to the prior examination(s).
[2017-12-17 00:45] VITALS: RESP 18
[2017-12-17] MEDS: Albuterol 0.042% Inhal Sol (1.25 mg/3 mL) UD INH SCH ×3 (01:05→14:12)
[2017-12-17 05:56] LABS: INR 2.1 (0.9-1.2)
[2017-12-17 06:38] LABS: ALT/SGPT 63 U/L (21-72); AST/SGOT 53 U/L (17-59); BLOOD UREA NITROGEN 9 mg/dl (9-20); GFR AFRICAN-AMERICAN > 60; GFR NON-AFRICAN AMERICAN > 60
--- NOTE | 2017-12-17 08:55 | PN ---
DATE: 12/16/2017 SUBJECTIVE: The patient seen and examined. Interim events noted. The patient feels okay. Denies any specific complaint of chest pain or shortness of breath. PHYSICAL EXAMINATION: GENERAL: The patient is in no acute distress. VITAL SIGNS: Stable. HEART: S1 and S2, normal and regular. LUNGS: Good bilateral air exchange. ABDOMEN: Soft and nontender. EXTREMITIES: . No tenderness. No acute ischemia. DIAGNOSTIC DATA: Available diagnostic data reviewed. Telemetry monitoring does not reveal significant arrhythmias. INR level is 1.9. ASSESSMENT AND PLAN: Overall, the patient is clinically stable. Plan as ordered. Asael Arreaga MD
[2017-12-17 09:00] VITALS: BP 109/76; TEMP 97.9; O2SAT 97
[2017-12-17] MEDS: Promethazine 12.5 mg/10 ml Syrup PO PRN (09:56)
[2017-12-17] MEDS: Enoxaparin 150 mg Syringe SC SCH (09:56)
[2017-12-17 12:12] VITALS: PULSE 98
--- NOTE | 2017-12-17 16:59 | CP.PCM.DIS ---
Provider - Provider Date of Admission: 12/14/17 18:37 Attending physician: Asael Arreaga MD Primary care physician: Paras Ross MD Time Spent in preparation of Discharge (in minutes): 30 Diagnosis - Discharge Diagnosis (1) Shortness of breath Status: Acute Hospital Course - Lab Results Lab Results: Most Recent Lab Values WBC 7.6 K/uL (4.8-10.8) 12/16/17 05:45 RBC 5.17 Mil/uL (4.40-5.90) 12/16/17 05:45 Hgb 12.6 g/dL (12.0-18.0) 12/16/17 05:45 Hct 41.3 % (35.0-51.0) 12/16/17 05:45 MCV 79.9 fl (80.0-94.0) L 12/16/17 05:45 MCH 24.4 pg (27.0-31.0) L 12/16/17 05:45 MCHC 30.5 g/dL (33.0-37.0) L 12/16/17 05:45 RDW 19.0 % (11.5-14.5) H 12/16/17 05:45 Plt Count 259 K/uL (130-400) 12/16/17 05:45 MPV 8.1 fl (7.2-11.7) 12/13/17 04:43 Neut % (Auto) 66.1 % (50.0-75.0) 12/13/17 04:43 Lymph % (Auto) 21.8 % (20.0-40.0) 12/13/17 04:43 [place] % (Auto) 7.6 % (0.0-10.0) 12/13/17 04:43 Eos % (Auto) 4.0 % (0.0-4.0) 12/13/17 04:43 Baso % (Auto) 0.5 % (0.0-2.0) 12/13/17 04:43 Neut # (Auto) 5.6 K/uL (1.8-7.0) 12/13/17 04:43 Lymph # (Auto) 1.9 K/uL (1.0-4.3) 12/13/17 04:43 [place] # (Auto) 0.6 K/uL (0.0-0.8) 12/13/17 04:43 Eos # (Auto) 0.3 K/uL (0.0-0.7) 12/13/17 04:43 Baso # (Auto) 0.0 K/uL (0.0-0.2) 12/13/17 04:43 PT 24.0 Seconds (9.8-13.1) H 12/17/17 04:20 INR 2.1 (0.9-1.2) H 12/17/17 04:20 APTT 23.8 Seconds (25.6-37.1) L 12/13/17 04:43 D-Dimer, Quantitative 488 ng/mlDDU (0-230) H 12/13/17 04:43 Sodium 144 mmol/l (132-148) 12/17/17 04:20 Potassium 4.2 MMOL/L (3.6-5.0) 12/17/17 04:20 Chloride 103 mmol/L (98-107) 12/17/17 04:20 Carbon Dioxide 28 mmol/L (22-30) 12/17/17 04:20 Anion Gap 17 (10-20) 12/17/17 04:20 BUN 9 mg/dl (9-20) 12/17/17 04:20 Creatinine 1.0 mg/dl (0.8-1.5) 12/17/17 04:20 Est GFR ( Amer) > 60 12/17/17 04:20 Est GFR (Non-Af Amer) > 60 12/17/17 04:20 Random Glucose 96 mg/dL (75-110) 12/17/17 04:20 Calcium 9.0 mg/dL (8.4-10.2) 12/17/17 04:20 Total Bilirubin 0.3 mg/dl (0.2-1.3) 12/17/17 04:20 AST 53 U/L (17-59) 12/17/17 04:20 ALT 63 U/L (21-72) 12/17/17 04:20 Alkaline Phosphatase 71 U/L (38-126) 12/17/17 04:20 Troponin I < 0.0120 ng/mL (0.00-0.120) 12/14/17 19:34 Total Protein 7.9 G/DL (6.3-8.2) 12/17/17 04:20 Albumin 4.0 g/dL (3.5-5.0) 12/17/17 04:20 Globulin 3.9 gm/dL (2.2-3.9) 12/17/17 04:20 Albumin/Globulin Ratio 1.0 (1.0-2.1) 12/17/17 04:20 TSH 3rd Generation 3.47 mIU/ML (0.46-4.68) 12/15/17 07:25 Urine Opiates Screen Negative (NEGATIVE) 12/15/17 01:44 Urine Methadone Screen Negative (NEGATIVE) 12/15/17 01:44 Ur Barbiturates Screen Negative (NEGATIVE) 12/15/17 01:44 Ur Phencyclidine Scrn Negative (NEGATIVE) 12/15/17 01:44 Ur Amphetamines Screen Negative (NEGATIVE) 12/15/17 01:44 U Benzodiazepines Scrn Negative (NEGATIVE) 12/15/17 01:44 U Oth Cocaine Metabols Negative (NEGATIVE) 12/15/17 01:44 U Cannabinoids Screen Negative (NEGATIVE) 12/15/17 01:44 Influenza Typ A,B (EIA) Negative for flu a/b (NEGATIVE) 12/13/17 04:43 - Hospital Course Hospital Course: 32 YO W/ known protien S deficiency who has not been compliant with Coumadin at home was admitted for SOB and chest pain. Chest CT was suggestive but not conclusive of PE. VQ scan showed low probability for PE. Patient symptoms have resolved. Advised to continue taking coumadin 6mg daily and follow up with PMD outpatient in next 2-3 days. INR is within therapeutic range. Discharge Exam - Head Exam Head Exam: ATRAUMATIC, NORMAL INSPECTION, NORMOCEPHALIC - Eye Exam Eye Exam: Normal appearance - ENT Exam ENT Exam: Mucous Membranes Moist - Respiratory Exam Respiratory Exam: Clear to PA & Lateral, NORMAL BREATHING PATTERN. absent: Rales, Wheezes - Cardiovascular Exam Cardiovascular Exam: REGULAR RHYTHM, +S1, +S2 - GI/Abdominal Exam GI & Abdominal Exam: Normal Bowel Sounds, Soft. absent: Tenderness - Skin Skin Exam: Normal Color, Warm Discharge Plan - Discharge Medications Prescriptions: Promethazine [Phenergan Syrup] 12.5 mg PO TID PRN #1 bottle PRN Reason: Cough Warfarin [Coumadin] 6 mg PO DAILY #5 tab - Follow Up Plan Condition: GOOD Disposition: HOME/ ROUTINE Additional Instructions: F/U with PMD in 2-3 days, if symptoms worsen please return to the ED. Referrals: Paras Ross MD [Primary Care Provider] -
== END 2017-12-17 13:00 | disposition home or self-care (01) | DRG 78 ==
LOC: H.ER 03:50 → INTOOBSV 07:10 → UNDOADMOB 07:10 → OBSVTOIN 07:10 → H.ERHOLD 07:10 → H.TEL 18:07 → H.ERHOLD 18:07 → H.TEL 12-14 18:37 → OBSVTOIN 12-14 18:37 → H.TEL 12-15 15:08
PROVIDERS: ADMIT Internal Medicine; ATTEND Internal Medicine
PROC: 3E0F7GC Introduction of Other Therapeutic Substance into Respiratory Tract, Via Natural or Artificial Opening (ICD-10-PCS; principal; 2017-12-15)
DX: I26.99 Other pulmonary embolism without acute cor pulmonale (principal); D68.59 Other primary thrombophilia; Z68.42 Body mass index [BMI] 45.0-49.9, adult; J40 Bronchitis, not specified as acute or chronic; J45.40 Moderate persistent asthma, uncomplicated; Z79.01 Long term (current) use of anticoagulants; Z86.711 Personal history of pulmonary embolism; Z86.718 Personal history of other venous thrombosis and embolism; Z91.14 Patient's other noncompliance with medication regimen; J02.9 Acute pharyngitis, unspecified; R06.83 Snoring; E66.01 Morbid (severe) obesity due to excess calories; F32.9 Major depressive disorder, single episode, unspecified; F41.9 Anxiety disorder, unspecified; G47.30 Sleep apnea, unspecified

== ENCOUNTER 2018-02-09 17:55 | Inpatient (IN) | payer MEDICAID ==
[2018-02-09 17:55] VITALS: BMI 48.6
--- NOTE | 2018-02-09 19:44 | ED PDOC ---
Arrival/HPI <Nikko Lee - Last Filed: 02/09/18 23:36> <Miles Licea - Last Filed: 02/10/18 01:52> - General Chief Complaint: GI Problem Time Seen by Provider: 02/09/18 19:07 - History of Present Illness Narrative History of Present Illness (Text): 02/09/18 19:43 33 y/o male, history of Protein S def, on Coumadin, presents to ER for evaluation of 2 days of hemoptysis, hematemesis, and hematochezia. Pt reports symptoms started suddenly 2 days ago and have been intermittent. He has had several episodes per day, mainly in the morning. Last episode was this morning, around 11am when he coughed up bright red blood within his mucous and had a bloody BM as well. Episode of hematemesis this morning. Associated with lightheadedness. No associated fatigue, CP/SOB/palpitations/SHEA. He also has had a headache since the bleeding began. Pain is 8/10, constant, nonradiating, aggravated by light, and no alleviating factors. Did not take any meds. Denies any neck stiffness, vision changes, weakness, numbness/tingling, Balance issues , speak changes. PMD: Regis (Nikko Lee) Past Medical History - Travel History Have you recently traveled outside [place] w/in the past 3 mons?: No - Cardiac Hx Cardiac Disorders: No - Pulmonary Hx Respiratory Disorders: Yes Hx Asthma: Yes Hx Pulmonary Embolism: Yes - Neurological Hx Neurological Disorder: No Hx Seizures: No - HEENT Hx HEENT Disorder: No - Renal Hx Renal Disorder: No - Endocrine/Metabolic Hx Endocrine Disorders: No - Hematological/Oncological Hx Blood Disorders: Yes Hx AIDS: No Other/Comment: Protein S deficiency - Integumentary Hx Dermatological Disorder: No - Musculoskeletal/Rheumatological Hx Musculoskeletal Disorders: No Hx Falls: No - Gastrointestinal Hx Gastrointestinal Disorders: No - Genitourinary/Gynecological Hx Genitourinary Disorders: No Hx Sexually Transmitted Diseases: No - Psychiatric Hx Psychophysiologic Disorder: Yes Hx Anxiety: Yes Hx Depression: Yes Hx Substance Use: No - Surgical History Hx Tonsillectomy: Yes Other/Comment: ACL sx 2011 - Anesthesia Hx Anesthesia: Yes Hx Anesthesia Reactions: No Hx Malignant Hyperthermia: No - Suicidal Assessment Feels Threatened In Home Enviroment: No <TiburcionoéSanthoshNikko - Last Filed: 02/09/18 23:36> - Provider Review Nursing Documentation Reviewed: Yes - Past History Past History: No Previous - Past Medical History Past Medical History: No Previous - Past Surgical History Past Surgical History: No Previous <AnujaDanntommy Leona - Last Filed: 02/10/18 01:52> Family/Social History - Physician Review Nursing Documentation Reviewed: Yes Family/Social History: No Known Family HX Smoking Status: Never Smoked Hx Alcohol Use: Yes (blacked out on evy 2 days ago ) Hx Substance Use: No <RosaNikko - Last Filed: 02/09/18 23:36> - Physician Review Nursing Documentation Reviewed: Yes <Miles Licea - Last Filed: 02/10/18 01:52> Allergies/Home Meds <TiburcionoéSanthoshNikko - Last Filed: 02/09/18 23:36> <Miles Licea Leona - Last Filed: 02/10/18 01:52> Allergies/Adverse Reactions: Allergies fentanyl Allergy (Verified 12/13/17 05:26) SHORTNESS OF BREATH sulfamethoxazole [From Bactrim] Allergy (Verified 12/13/17 05:26) SHORTNESS OF BREATH trimethoprim [From Bactrim] Allergy (Verified 12/13/17 05:26) SHORTNESS OF BREATH acetaminophen [From Percocet] Adverse Reaction (Verified 12/13/17 05:26) VOMITING oxycodone [From Percocet] Adverse Reaction (Verified 12/13/17 05:26) VOMITING Home Medications: Home Meds Medication Instructions Recorded Confirmed Warfarin [Coumadin] 7.5 mg PO DAILY 02/10/18 02/10/18 Review of Systems - Review of Systems Constitutional: Normal. absent: Fatigue, Weight Change, Fevers, Night Sweats, Other Eyes: Photophobia. absent: Normal, Vision Changes, Eye Pain, Other ENT: absent: Normal, Hearing Changes, Tinnitus, TMJ Pain, Voice Changes, Sore Throat, Rhinorrhea, Epistaxis, Sinus Congestion, Other Respiratory: Normal, Other (hemoptysis). absent: SOB, Cough, Sputum, Wheezing Cardiovascular: Normal. absent: Chest Pain, Palpitations, Edema, Calf Pain, SHEA , Orthopnea, SY, Syncope, Other Gastrointestinal: Hematochezia, Hematemesis. absent: Normal, Abdominal Pain, Stool Changes, Constipation, Diarrhea, Nausea, Vomiting, Appetite Changes, Anorexia, Food Intolerance, Other Genitourinary Male: Normal. absent: Dysuria, Frequency, Hematuria, Urinary Output Changes, Other Musculoskeletal: Normal. absent: Arthralgias, Back Pain, Neck Pain, Joint Swelling, Myalgias, Other Skin: Normal. absent: Rash, Pruritis, Skin Lesions, Laceration, Abscess, Ulcer , Cellulitis, Other Neurological: Headache. absent: Normal, Dizziness, Focal Weakness, Gait Changes , Speech Changes, SC, Facial Droop, DE, Disequilibrium, SE, Seizure, Other Hemo/Lymphatic: absent: Easy Bruising <Nikko Lee - Last Filed: 02/09/18 23:36> - Physician Review All systems were reviewed & negative as marked: Yes <Miles Licea - Last Filed: 02/10/18 01:52> Physical Exam Vital Signs Reviewed: Yes Temperature: Afebrile Blood Pressure: Normal Pulse: Regular Respiratory Rate: Normal Appearance: Positive for: Well-Appearing, Non-Toxic, Comfortable Pain Distress: None Mental Status: Positive for: Alert and Oriented X 3 - Systems Exam Head: Present: Atraumatic, Normocephalic. No: Tenderness, Contusion, Swelling, Ecchymosis Pupils: Present: PERRL Extroacular Muscles: Present: EOMI Conjunctiva: Present: Normal. No: Injected, Icteric Mouth: Present: Moist Mucous Membranes, Normal Lips, Normal Tounge, Normal Teeth. No: Dry, Drooling, Trismus Pharnyx: Present: Normal. No: ERYTHEMA, EXUDATE, TONSILS ENLARGED, Peritonsilar Swelling, Uvular Deviation, Muffled/Hoarse Voice, Strider, Soft Palate/Uvular Edema, Other Nose (External): Present: Atraumatic. No: Abrasion, Laceration, Lesions Nose (Internal): Present: Normal Inspection, No Active Bleeding Neck: Present: Normal Range of Motion. No: Meningeal Signs, MIDLINE TENDERNESS Respiratory/Chest: Present: Clear to Auscultation, Good Air Exchange. No: Respiratory Distress, Accessory Muscle Use, Wheezes, Decreased Breath Sounds, Rales, Retracting, Rhonchi Cardiovascular: Present: Regular Rate and Rhythm, Normal S1, S2, Peripheal Pulses Present. No: Murmurs Abdomen: Present: Normal Bowel Sounds, Other (morbid truncal obesity limiting exam ). No: Tenderness, Distention, Peritoneal Signs Rectal: Present: Other (pt declined examination ) Upper Extremity: Present: Normal Inspection, Normal ROM, Neurovascularly Intact , Capillary Refill < 2s. No: Cyanosis, Edema Lower Extremity: Present: Normal Inspection, NORMAL PULSES, Neurovascularly Intact, Capillary Refill < 2 s. No: Edema, CALF TENDERNESS Neurological: Present: GCS=15, CN II-XII Intact, Speech Normal, Motor Func Grossly Intact, Normal Sensory Function, Normal Cerebellar Funct, Norm Deep Tendon Reflexes, Gait Normal Skin: Present: Warm, Dry, Normal Color. No: Rashes Psychiatric: Present: Alert, Oriented x 3, Normal Insight, Normal Concentration <Nikko Lee - Last Filed: 02/09/18 23:36> Vital Signs Temp Pulse Resp BP Pulse Ox 02/10/18 01:13 69 16 110/61 99 02/09/18 18:23 97.7 F 70 18 126/75 98 Medical Decision Making Re-evaluation Time: 23:36 Reassessment Condition: Improved <Nikko Lee - Last Filed: 02/09/18 23:36> Reassessment Condition: Re-examined - Lab Interpretations I have reviewed the lab results: Yes Interpretation: No clinic. lab abnormalty <Miles Licea - Last Filed: 02/10/18 01:52> ED Course and Treatment: 02/09/18 19:54 suspected Upper or Lower GI bleed, Spontaneous Intracranial Hemorrhage, Tension headache, Migraine w/o aura Head CT w/o contrast CBC CMP COAGS LIPASE Type and Cross Occult Blood UDS UA Zofran IVP Protonix 40mg IVP Tylenol 975mg PO for headache occult blood obtained via attending Dr. Licea Attempted NG tube insertion, pt jerked during attempt, pulled out NG tube and refused further attempts 02/09/18 22:45 based on 2012 ACCP guidelines, pt currently has INR >10 and no evidence of bleeding, will treat with PO Vitamin K dose of 5mg. Vitals stable, Hb/Hct wnl, occult blood negative, no episodes of hematemesis or hemoptysis during ED stay. (Nikko Lee) 02/09/18 21:17 EXAM: CT Head Without Intravenous Contrast CLINICAL HISTORY: 33 years old, male; Pain; Headache; Other: Youngblood's hemoptysis hematochezia; Patient HX: Protein s deficiency. Pt on blood thinner; Additional info: Headache, on coumadin TECHNIQUE: Axial computed tomography images of the head/brain without intravenous contrast. All CT scans at this facility use one or more dose reduction techniques, viz.: automated exposure control; ma/kV adjustment per patient size (including targeted exams where dose is matched to indication; i.e. head); or iterative reconstruction technique. COMPARISON: No relevant prior studies available. FINDINGS: Brain: Unremarkable. Ventricles: Unremarkable. Bones/joints: Unremarkable. No acute fracture. Soft tissues: Unremarkable. Sinuses: Unremarkable as visualized. Mastoid air cells: Unremarkable as visualized. IMPRESSION: No acute intracranial pathology or traumatic injury. Thank you for allowing us to participate in the care of your patient. Dictated and Authenticated by: Tim Mo MD 02/09/2018 9:11 PM Eastern Time ([place] & [place]) (Miles Licea) - Lab Interpretations Lab Results: 02/09/18 19:52 02/09/18 19:52 Lab Results 02/09/18 21:49: Urine Opiates Screen Negative, Urine Methadone Screen Negative, Ur Barbiturates Screen Negative, Ur Phencyclidine Scrn Negative, Ur Amphetamines Screen Negative, U Benzodiazepines Scrn Negative, U Oth Cocaine Metabols Positive H, U Cannabinoids Screen Negative 02/09/18 21:49: Urine Color Yellow, Urine Clarity Slighty-cloudy, Urine pH 6.0, Ur Specific [place] 1.020, Urine Protein Negative, Urine Glucose (UA) Neg, Urine Ketones Negative, Urine Blood Small, Urine Nitrate Negative, Urine Bilirubin Negative, Urine Urobilinogen 0.2-1.0, Ur Leukocyte Esterase Mod, Urine RBC (Auto) 8 H, Urine Microscopic WBC 36 H, Ur Squamous Epith Cells 1, Urine Bacteria Rare, Stool Occult Blood Negative 02/09/18 21:49: Blood Type A POSITIVE, Antibody Screen Negative, BBK History Checked No verified bt 02/09/18 19:52: PT > 100.0 H*, INR > 10.0 H, APTT 98.7 H 02/09/18 19:52: WBC 8.7, RBC 5.26, Hgb 13.0, Hct 41.9, MCV 79.6 L, MCH 24.7 L, MCHC 31.0 L, RDW 17.8 H, Plt Count 316 02/09/18 19:52: Sodium 143, Potassium 4.3, Chloride 104, Carbon Dioxide 22, Anion Gap 21 H, BUN 12, Creatinine 1.4, Est GFR ( Amer) > 60, Est GFR ( Non-Af Amer) 58, Random Glucose 94, Calcium 9.1, Total Bilirubin 0.3, AST 32, ALT 36, Alkaline Phosphatase 79, Total Protein 8.5 H, Albumin 4.3, Globulin 4.2 H, Albumin/Globulin Ratio 1.0, Lipase 73, Alcohol, Quantitative < 10 - RAD Interpretation Radiology Orders: 02/09/18 19:31 HEAD W/O CONTRAST [CT] Stat - Medication Orders Current Medication Orders: Acetaminophen (Tylenol 325mg Tab) 650 mg PO Q4 PRN PRN Reason: Headache Nitrofurantoin Macrocrystals (Macrobid) 100 mg PO Q12 XIN PRN Reason: Protocol Ondansetron HCl (Zofran Inj) 4 mg IVP Q4 PRN PRN Reason: Nausea/Vomiting Pantoprazole Sodium (Protonix Ec Tab) 40 mg PO DAILY XIN Discontinued Medications Acetaminophen (Tylenol 325mg Tab) 975 mg PO ONCE ONE Stop: 02/09/18 22:39 Last Admin: 02/09/18 23:00 Dose: 975 mg [facility] Pain/Vitals Document 02/09/18 23:00 (Rec: 02/10/18 00:04 [id number]) Pain Reassessment Is This A Pain ReAssessment? No Sleep Is patient sleeping during reassessment? No Presence of Pain Presence of Pain Yes Pain Scale Used Pain Scale Used Numeric Location Pain Location Body Microcomputer Technician Description Pressure Intensity 9 Re-Assess: [facility] Pain/Vital Signs Reassess Document 02/10/18 00:00 (Rec: 02/10/18 00:23 [id number]) Sleep Is patient sleeping during reassessment? No Pain Reassessment Pain not relieved and LIP/MD was Yes notified Pain Scale Used Numeric Pain Scale Level 9 Description Constant Nitrofurantoin Macrocrystals (Macrobid) 100 mg PO STAT STA PRN Reason: Protocol Stop: 02/09/18 23:35 Last Admin: 02/09/18 23:46 Dose: 100 mg Ondansetron HCl (Zofran Odt) 8 mg PO STAT STA Stop: 02/09/18 19:39 Last Admin: 02/09/18 20:35 Dose: 8 mg Pantoprazole Sodium (Protonix Inj) 40 mg IVP STAT STA Stop: 02/09/18 19:39 Last Admin: 02/09/18 20:35 Dose: 40 mg IVP Administration Document 02/09/18 20:35 PADMINI (Rec: 02/09/18 20:35 PADMINI [id number]) Charges for Administration # of IVP Administrations 1 Phytonadione (Vitamin K Tab) 5 mg PO ONCE ONE Stop: 02/09/18 22:39 Last Admin: 02/09/18 23:46 Dose: 5 mg Tramadol HCl (Ultram) 100 mg PO ONCE ONE Stop: 02/10/18 00:04 Last Admin: 02/10/18 00:37 Dose: 100 mg MAR Pain Assessment Document 02/10/18 00:37 PADMINI (Rec: 02/10/18 00:37 PADMINI [id number]) Pain Reassessment Is this a pain reassessment? Yes Sleep Is patient sleeping during reassessment? No Presence of Pain Presence of Pain Yes Pain Scale Used Pain Scale Used Numeric Location Left, Right or Bilateral Bilateral Pain Location Body Microcomputer Technician Description Description Pressure Intensity of Pain at present 9 Disposition/Present on Arrival - Present on Arrival Any Indicators Present on Arrival: Yes History of DVT/PE: Yes History of Uncontrolled Diabetes: No Urinary Catheter: No - Disposition Have Diagnosis and Disposition been Completed?: Yes Disposition Time: 23:36 Patient Plan: Observation <Nikko Lee - Last Filed: 02/09/18 23:36> - Present on Arrival Any Indicators Present on Arrival: No - Disposition Have Diagnosis and Disposition been Completed?: Yes <Miles Licea - Last Filed: 02/10/18 01:52> - Disposition Diagnosis: Supratherapeutic INR Disposition: HOSPITALIZED Patient Problems: Current Active Problems Problem Status Onset Supratherapeutic INR Acute Condition: FAIR Supervising Attending Note - Supervising Attending Note The Documented history was done by the: Physician Assistant City Attorney, Attending Physician The documented physical exam was done by the: Physician Assistant City Attorney, Attending Physician The documented procedures were done by the: Physician Assistant City Attorney, Attending Physician - Attestation: I have personally seen and examined this patient.: Yes I have fully participated in the care of the patient.: Yes I have reviewed all pertinent clinical information, including history, physical exam and plan: Yes <Miles Licea - Last Filed: 02/10/18 01:52>
[2018-02-09 19:58] LABS: MEAN CELL VOLUME 79.6 fl (80.0-94.0); MEAN CORPUSCULAR HEMOGLOBIN 24.7 pg (27.0-31.0); RBC 5.26 Mil/uL (4.40-5.90); RED CELL DISTRIBUTION WIDTH 17.8 % (11.5-14.5); WHITE BLOOD COUNT 8.7 K/uL (4.8-10.8)
[2018-02-09 20:07] LABS: ALBUMIN 4.3 g/dL (3.5-5.0); ALT/SGPT 36 U/L (21-72); AST/SGOT 32 U/L (17-59); BLOOD UREA NITROGEN 12 mg/dl (9-20); CALCIUM 9.1 mg/dL (8.4-10.2); GFR AFRICAN-AMERICAN > 60; GFR NON-AFRICAN AMERICAN 58; LIPASE 73 U/L (23-300)
[2018-02-09 20:41] LABS: INR > 10.0 (0.9-1.2); PARTIAL THROMBOPLASTIN TIME 98.7 Seconds (25.6-37.1); PROTHROMBIN TIME > 100.0 Seconds (9.8-13.1)
[2018-02-09 22:24] LABS: SQUAMOUS EPITHIAL 1 /hpf (0-5); URINE BACTERIA RARE (<OCC); URINE BILIRUBIN NEGATIVE (NEGATIVE); URINE BLOOD SMALL (NEGATIVE); URINE CLARITY SLIGHTY-CLOUDY (Clear); URINE COLOR YELLOW (YELLOW); URINE GLUCOSE (UA) NEG (Normal); URINE LEUKOCYTE ESTERASE MOD Leu/uL (Negative); URINE PROTEIN NEGATIVE (NEGATIVE); URINE UROBILINOGEN 0.2-1.0 mg/dL (0.2-1.0)
[2018-02-09 22:48] LABS: BARBITURATES, UR NEGATIVE (NEGATIVE); BENZODIAZEPINES, UR NEGATIVE (NEGATIVE); OPIATES, UR NEGATIVE (NEGATIVE); PHENCYCLIDINE, UR NEGATIVE (NEGATIVE)
--- NOTE | 2018-02-09 23:38 | CP.PCM.HP ---
History of Present Illness - History of Present Illness History of Present Illness: PMD: Paras Ross MD Chief Complaint: Blood in stool and spitting up blood /Headache The patient was seen and examined in the ED HPI: 33 years old male with hx of F2M ( Transgender change), Protein S deficiency with multiple PE and DVT on Coumadin. The last INR few days ago was 6 and no blood test was done since. He Comes referring 2 days of intermittent Hemoptisis, Hematemesis and Hematochezia. The last episode was today in the morning when he coughed up bright red blood. He feels weak lightheaded with persistent frontal headaches and pressure sensation to the pelvic region. No fever, chills, Neck stiffness, chest pain, dysuria nor diarrhea. In ED Stool guiac was negative. 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 absent: Anorexia, Chills, Fever, Frequent Falls - EENT Eyes: Requires Corrective Lenses. absent: Diplopia, Floaters, Sees Flashes Ears: absent: Decreased Hearing, Ear Discharge, Ear Pain, Tinnitus Nose/Mouth/Throat: absent: Epistaxis, Nasal Congestion, Sinus Pain, Sinus Pressure - Cardiovascular Cardiovascular: absent: Chest Pain, Dyspnea, Edema, Orthopnea - Respiratory Respiratory: Hemoptysis. absent: Cough, Dyspnea, Wheezing, Stridor - Gastrointestinal Gastrointestinal: Hematemesis, Hematochezia. absent: Constipation, Diarrhea, Nausea, Vomiting - Genitourinary Additional comments: lvic pressure-like pain - Musculoskeletal Musculoskeletal: absent: Back Pain, Joint Swelling, Muscle Weakness, Numbness - Integumentary Integumentary: absent: Pruritus, Rash, Skin Ulcer, Sores, Striae, Swelling - Neurological Neurological: Headaches. absent: Confusion, Focal Weakness, Loss of Vision, Weakness Additional comments: Lightheadedness - Psychiatric Psychiatric: Anxiety, Depression. absent: Panic Attacks - Endocrine Endocrine: absent: Palpitations, Polydipsia, Polyphagia, Polyuria - Hematologic/Lymphatic Hematologic: absent: Easy Bleeding, Easy Bruising Past Patient History - Past Medical History & Family History Past Medical History?: Yes - Past Social History Smoking Status: Never Smoked Chewing Tobacco Use: No Cigar Use: No Alcohol: Social Home Situation {Lives}: Alone - CARDIAC Hx Cardiac Disorders: No - PULMONARY Hx Respiratory Disorders: Yes Hx Asthma: Yes Hx Pulmonary Embolism: Yes - NEUROLOGICAL Hx Neurological Disorder: No Hx Seizures: No - HEENT Hx HEENT Problems: No - RENAL Hx Chronic Kidney Disease: No - ENDOCRINE/METABOLIC Hx Endocrine Disorders: No - HEMATOLOGICAL/ONCOLOGICAL Hx Blood Disorders: Yes Hx AIDS: No Other/Comment: Protein S deficiency - INTEGUMENTARY Hx Dermatological Problems: No - MUSCULOSKELETAL/RHEUMATOLOGICAL Hx Musculoskeletal Disorders: No Hx Falls: No - GASTROINTESTINAL Hx Gastrointestinal Disorders: No - GENITOURINARY/GYNECOLOGICAL Hx Genitourinary Disorders: No Hx Sexually Transmitted Disorders: No - PSYCHIATRIC Hx Psychophysiologic Disorder: Yes Hx Anxiety: Yes Hx Depression: Yes Hx Substance Use: No - SURGICAL HISTORY Hx Tonsillectomy: Yes Other/Comment: ACL sx 2011 - ANESTHESIA Hx Anesthesia: Yes Hx Anesthesia Reactions: No Hx Malignant Hyperthermia: No Meds Allergies/Adverse Reactions: Allergies Allergy/AdvReac Type Severity Reaction Status Date / Time fentanyl Allergy SHORTNESS Verified 12/13/17 05:26 OF BREATH sulfamethoxazole Allergy SHORTNESS Verified 12/13/17 05:26 [From Bactrim] OF BREATH trimethoprim [From Bactrim] Allergy SHORTNESS Verified 12/13/17 05:26 OF BREATH acetaminophen [From Percocet] AdvReac VOMITING Verified 12/13/17 05:26 oxycodone [From Percocet] AdvReac VOMITING Verified 12/13/17 05:26 Physical Exam - Constitutional Appears: No Acute Distress - Head Exam Head Exam: ATRAUMATIC, NORMAL INSPECTION, NORMOCEPHALIC - Eye Exam Eye Exam: EOMI, Normal appearance Pupil Exam: NORMAL ACCOMODATION, PERRL - ENT Exam ENT Exam: Mucous Membranes Moist, Normal Exam, Normal External Ear Exam - Neck Exam Neck exam: Positive for: Full Rom, Normal Inspection. Negative for: Lymphadenopathy, Tenderness - Respiratory Exam Respiratory Exam: Clear to Auscultation Bilateral. absent: Rales, Rhonchi, Wheezes - Cardiovascular Exam Cardiovascular Exam: REGULAR RHYTHM, RRR, +S1, +S2. absent: Gallop - GI/Abdominal Exam Additional comments: Full, Soft, mild tenderness at the pelvic region, +ve bowel sounds, no guarding , no rebound tenderness. - Rectal Exam Rectal Exam: Deferred - Extremities Exam Extremities exam: Positive for: full ROM, normal inspection. Negative for: calf tenderness, joint swelling, pedal edema, tenderness - Back Exam Back exam: NORMAL INSPECTION. absent: CVA tenderness (L), CVA tenderness (R) - Neurological Exam Neurological exam: Alert, CN II-XII Intact, Oriented x3, Reflexes Normal - Psychiatric Exam Psychiatric exam: Normal Affect, Normal Mood - Skin Skin Exam: Dry, Intact, Normal Color, Warm Results - Vital Signs Recent Vital Signs: Last Vital Signs Temp 97.7 F 02/09/18 18:23 Pulse 70 02/09/18 18:23 Resp 18 02/09/18 18:23 BP 126/75 02/09/18 18:23 Pulse Ox 98 02/09/18 18:23 - Labs Result Diagrams: 02/09/18 19:52 02/09/18 19:52 Labs: Laboratory Results - last 24 hr 02/09/18 02/09/18 02/09/18 19:52 19:52 19:52 WBC 8.7 RBC 5.26 Hgb 13.0 Hct 41.9 MCV 79.6 L MCH 24.7 L MCHC 31.0 L RDW 17.8 H Plt Count 316 PT > 100.0 H* INR > 10.0 H APTT 98.7 H Sodium 143 Potassium 4.3 Chloride 104 Carbon Dioxide 22 Anion Gap 21 H BUN 12 Creatinine 1.4 Est GFR ( Amer) > 60 Est GFR (Non-Af Amer) 58 Random Glucose 94 Calcium 9.1 Total Bilirubin 0.3 AST 32 ALT 36 Alkaline Phosphatase 79 Total Protein 8.5 H Albumin 4.3 Globulin 4.2 H Albumin/Globulin Ratio 1.0 Lipase 73 Urine Color Urine Clarity Urine pH Ur Specific [place] Urine Protein Urine Glucose (UA) Urine Ketones Urine Blood Urine Nitrate Urine Bilirubin Urine Urobilinogen Ur Leukocyte Esterase Urine RBC (Auto) Urine Microscopic WBC Ur Squamous Epith Cells Urine Bacteria Stool Occult Blood Urine Opiates Screen Urine Methadone Screen Ur Barbiturates Screen Ur Phencyclidine Scrn Ur Amphetamines Screen U Benzodiazepines Scrn U Oth Cocaine Metabols U Cannabinoids Screen Alcohol, Quantitative < 10 Blood Type Antibody Screen BBK History Checked 02/09/18 02/09/18 02/09/18 21:49 21:49 21:49 WBC RBC Hgb Hct MCV MCH MCHC RDW Plt Count PT INR APTT Sodium Potassium Chloride Carbon Dioxide Anion Gap BUN Creatinine Est GFR ( Amer) Est GFR (Non-Af Amer) Random Glucose Calcium Total Bilirubin AST ALT Alkaline Phosphatase Total Protein Albumin Globulin Albumin/Globulin Ratio Lipase Urine Color Yellow Urine Clarity Slighty-cloudy Urine pH 6.0 Ur Specific [place] 1.020 Urine Protein Negative Urine Glucose (UA) Neg Urine Ketones Negative Urine Blood Small Urine Nitrate Negative Urine Bilirubin Negative Urine Urobilinogen 0.2-1.0 Ur Leukocyte Esterase Mod Urine RBC (Auto) 8 H Urine Microscopic WBC 36 H Ur Squamous Epith Cells 1 Urine Bacteria Rare Stool Occult Blood Negative Urine Opiates Screen Negative Urine Methadone Screen Negative Ur Barbiturates Screen Negative Ur Phencyclidine Scrn Negative Ur Amphetamines Screen Negative U Benzodiazepines Scrn Negative U Oth Cocaine Metabols Positive H U Cannabinoids Screen Negative Alcohol, Quantitative Blood Type A POSITIVE Antibody Screen Negative BBK History Checked No verified bt - Imaging and Cardiology CT scan - head Status: Image reviewed by me, Report reviewed by me Additional comment: EXAM: CT Head Without Intravenous Contrast FINDINGS: Brain: Unremarkable. Ventricles: Unremarkable. Bones/joints: Unremarkable. No acute fracture. Soft tissues: Unremarkable. Sinuses: Unremarkable as visualized. Mastoid air cells: Unremarkable as visualized. IMPRESSION: No acute intracranial pathology or traumatic injury. Assessment & Plan - Assessment and Plan (Free Text) Assessment: #. Supratherapeutic INR #. possible GI Bleed; #. Cocaine Abuse #. Protein S Deficiency #. Intractible headache #. UTI #. hx of PE and DVT #. 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 . He Comes referring 2 days of intermittent Hemoptisis, Hematemesis and Hematochezia. The last episode was today in the morning when he coughed up bright red blood. He feels weak lightheaded with persistent frontal headaches and pressure sensation to the pelvic region. In ED Stool guiac was negative. #. Supratherapeutic INR from Coumadin and noncompliance in doing blood work - Hold Coumadin until INR is therapeutic. Restart at a lower dose and [place] Patient to follow up with blood work - Vitamin K 5mg given in ED - Follow INR #. Possible GI Bleed. Guiac is negative and no sign of bleeding at present - GI was consulted by ED #. Cocaine Abuse - Watch for Withdrawal - Treat with Ativan/Clonidine #. Protein S Deficiency - Restart Coumadin when INR is therapeutic #. Intractible headache. Probably tension headache. CT head negative for bleed - Treat with Tylenol #. UTI Pyuria in patient with recurrent pyelonephritis - Macro Bid Q12H #. hx of PE and DVT -On Anticoagulant with Supratherapeutic INR #. Code Status: Full - Date & Time Date: 02/09/18 Time: 23:38
[2018-02-10 08:31] LABS: INR 25.2 (0.9-1.2)
[2018-02-10 08:36] LABS: PARTIAL THROMBOPLASTIN TIME 99.9 Seconds (25.6-37.1)
[2018-02-10] MEDS: Pantoprazole 40 mg EC Tab PO SCH (08:49)
--- NOTE | 2018-02-10 10:47 | CT ---
EXAMINATION PERFORMED: CT head without intravenous contrast. CLINICAL HISTORY: COMPARISON EXAMINATIONS: None TECHNIQUE: 2.5 mm axial acquisition and display. Coronal and sagittal reconstructions. Dose report (mGy-cm): 1184.99 Unenhanced study: Coronal and sagittal reconstructed images. FINDINGS: Brain: No intracranial hemorrhage. No mass. Ventricles: No hydrocephalus. Calvarium: Unremarkable. Sinuses: No evidence of acute sinusitis. Mastoid air cells: Unremarkable. Other findings: None. IMPRESSION: No acute intracranial abnormalities. No significant findings to account for the clinical presentation. Concordant results (preliminary interpretation) provided by [facility]. Procedure Completed: 20:50 Preliminary ([facility]) Report: Dictated and Authenticated: 21:11 Final Interpretation: 10:45. February 10, 2018.
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
--- NOTE | 2018-02-10 18:05 | CP.PCM.PN ---
Subjective - Date & Time of Evaluation Date of Evaluation: 02/10/18 Time of Evaluation: 10:00 - Subjective Subjective: Patient was seen and examined. He stated that he is no longer suicidal. Denies any further episodes of GI bleeding. Hemodynamically stable, NAD. Had nosebleed which resolved spontaneously. Objective - Vital Signs/Intake and Output Vital Signs (last 24 hours): Temp Pulse Resp BP Pulse Ox 97.6 F 74 20 111/65 96 02/10/18 16:14 02/10/18 16:14 02/10/18 16:14 02/10/18 16:14 02/10/18 16:14 - Medications Medications: Current Medications Acetaminophen (Tylenol 325mg Tab) 650 mg PO Q4 PRN PRN Reason: Headache Acetaminophen (Tylenol 325mg Tab) 650 mg PO Q4 PRN PRN Reason: Other Last Admin: 02/10/18 06:25 Dose: 650 mg Nitrofurantoin Macrocrystals (Macrobid) 100 mg PO Q12 XIN PRN Reason: Protocol Last Admin: 02/10/18 08:46 Dose: 100 mg Ondansetron HCl (Zofran Inj) 4 mg IVP Q4 PRN PRN Reason: Nausea/Vomiting Pantoprazole Sodium (Protonix Ec Tab) 40 mg PO DAILY [facility] Last Admin: 02/10/18 08:49 Dose: 40 mg Tramadol HCl (Ultram) 50 mg PO Q6 PRN PRN Reason: Pain, Mild (1-3) - Labs Labs: 02/09/18 19:52 02/09/18 19:52 PT 299.0 Seconds (9.8-13.1) H* D 02/10/18 05:30 INR 25.2 (0.9-1.2) H D 02/10/18 05:30 APTT 99.9 Seconds (25.6-37.1) H* 02/10/18 05:30 - Additional Findings Additional findings: Physical exam: Constitutional- cooperative, awake, alert Head- NCAT, PERRL Eye- PERRL, EOMI ENT- normal exam, MMM. 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 The last episode was today in the morning when he coughed up bright red blood, however this has not been witnessed since admission and patient is guaic negative. Patient was then seen to have very elevated INR of 25.2 after overdosing on Coumadin 1). Supratherapeutic INR from Coumadin overdose - Hold Coumadin until INR is therapeutic. Patient to follow up with blood work - Vitamin K 5mg given in ED, will give 5 more now - Heme/onc consultation with Dr. Rashi Mims- recommends 2 units FFP which are being transfused today - Follow INR in AM - Observation at this time 2). Possible GI Bleed. Guiac is negative and no sign of bleeding at present - Dr. Murray, GI, on consultation- no evidence of hematochezia or GI bleed - Rectal exam negative for bleeding, guiac negative - No need for upper or lower endoscopy 3). Cocaine Abuse - Watch for Withdrawal - Treat with Ativan/Clonidine 4). Protein S Deficiency - Restart Coumadin when INR is therapeutic 5). Intractible headache- resolved. Probably tension headache. CT head negative for bleed - Treat with Tylenol PRN 6). UTI Pyuria in patient with recurrent pyelonephritis - Macro Bid Q12H - Afebrile today 7) Schizoaffective disorder vs bipolar disorder - Denies suicidal ideation - No 1:1 observation indicated at this time as per psychiatry - Psych re-evaluation recommended when he is stable for discharge - Patient refusing psychiatric admission upon hospital discharge 8). hx of PE and DVT -Supratherapeutic INR #. Code Status: Full
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
[2018-02-11 06:44] LABS: HEMOGLOBIN 12.5 g/dL (12.0-18.0); MEAN CELL VOLUME 79.2 fl (80.0-94.0); MEAN CORPUSCULAR HEMOGLOBIN 24.7 pg (27.0-31.0); MEAN CORPUSCULAR HGB CONC 31.1 g/dL (33.0-37.0); RBC 5.07 Mil/uL (4.40-5.90); RED CELL DISTRIBUTION WIDTH 17.6 % (11.5-14.5)
[2018-02-11 07:03] LABS: INR 4.5 (0.9-1.2)
[2018-02-11 07:04] LABS: PARTIAL THROMBOPLASTIN TIME 59.4 Seconds (25.6-37.1)
[2018-02-11] MEDS: Pantoprazole 40 mg EC Tab PO SCH (09:09)
--- NOTE | 2018-02-11 09:30 | CP.PCM.PN ---
Subjective - Date & Time of Evaluation Date of Evaluation: 02/11/18 Time of Evaluation: 09:29 - Subjective Subjective: no complaints this morning does not wish to be admitted to voluntary psych INR improving 4.5 today hd stable nad Objective - Vital Signs/Intake and Output Vital Signs (last 24 hours): Temp Pulse Resp BP Pulse Ox 97.2 F L 64 20 118/86 99 02/11/18 08:27 02/11/18 08:27 02/11/18 08:27 02/11/18 08:27 02/11/18 08:27 - Medications Medications: Current Medications Acetaminophen (Tylenol 325mg Tab) 650 mg PO Q4 PRN PRN Reason: Headache Acetaminophen (Tylenol 325mg Tab) 650 mg PO Q4 PRN PRN Reason: Other Last Admin: 02/10/18 06:25 Dose: 650 mg Nitrofurantoin Macrocrystals (Macrobid) 100 mg PO Q12 XIN PRN Reason: Protocol Last Admin: 02/11/18 09:09 Dose: 100 mg Ondansetron HCl (Zofran Inj) 4 mg IVP Q4 PRN PRN Reason: Nausea/Vomiting Pantoprazole Sodium (Protonix Ec Tab) 40 mg PO DAILY [facility] Last Admin: 02/11/18 09:09 Dose: 40 mg Tramadol HCl (Ultram) 50 mg PO Q6 PRN PRN Reason: Pain, Mild (1-3) Last Admin: 02/10/18 20:24 Dose: 50 mg - Labs Labs: 02/11/18 05:30 02/09/18 19:52 PT 51.0 Seconds (9.8-13.1) H* D 02/11/18 05:30 INR 4.5 (0.9-1.2) H D 02/11/18 05:30 APTT 59.4 Seconds (25.6-37.1) H D 02/11/18 05:30 - Constitutional Appears: Non-toxic, No Acute Distress - Head Exam Head Exam: ATRAUMATIC, NORMOCEPHALIC - Eye Exam Eye Exam: EOMI, Normal appearance, PERRL - ENT Exam ENT Exam: Mucous Membranes Moist, Normal Oropharynx - Respiratory Exam Respiratory Exam: Clear to Ausculation Bilateral, NORMAL BREATHING PATTERN - Cardiovascular Exam Cardiovascular Exam: RRR, +S1, +S2 - GI/Abdominal Exam GI & Abdominal Exam: Soft, Normal Bowel Sounds. 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 The last episode was today in the morning when he coughed up bright red blood, however this has not been witnessed since admission and patient is guaic negative. Patient was then seen to have very elevated INR of 25.2 after overdosing on Coumadin 1). Coumadin Toxicity - Hold Coumadin until INR is therapeutic. Patient to follow up with blood work - Vitamin K 5mg given in ED, will give 5 more now - Heme/onc consultation with Dr. Rashi Mims- recommends 2 units FFP which are being transfused today - Follow INR in AM - Observation at this time 2). Possible GI Bleed. Guaiac is negative and no sign of bleeding at present - Dr. Murray, GI, on consultation- no evidence of hematochezia or GI bleed - Rectal exam negative for bleeding, guiac negative - No need for upper or lower endoscopy 3). Cocaine Abuse - Watch for Withdrawal - Treat with Ativan/Clonidine 4). Protein S Deficiency - Restart Coumadin when INR is therapeutic 5). Intractable headache- resolved. Probably tension headache. CT head negative for bleed - Treat with Tylenol PRN 6). UTI Pyuria in patient with recurrent pyelonephritis - Macro Bid Q12H - Afebrile today 7) Schizoaffective disorder vs bipolar disorder - Denies suicidal ideation - No 1:1 observation indicated at this time as per psychiatry - Psych re-evaluation recommended when he is stable for discharge - also need input on whether safe to send patient home on coumadin - Patient refusing psychiatric admission upon hospital discharge 8). hx of PE and DVT -Supratherapeutic INR #. Code Status: Full
--- NOTE | 2018-02-11 18:03 | CP.PCM.PN ---
Subjective - Date & Time of Evaluation Date of Evaluation: 02/11/18 Time of Evaluation: 17:00 - Subjective Subjective: No complaints. No bleeding. Objective - Vital Signs/Intake and Output Vital Signs (last 24 hours): Temp Pulse Resp BP Pulse Ox 97.8 F 83 20 118/81 95 02/11/18 16:05 02/11/18 16:05 02/11/18 16:05 02/11/18 16:05 02/11/18 16:05 - Medications Medications: Current Medications Acetaminophen (Tylenol 325mg Tab) 650 mg PO Q4 PRN PRN Reason: Headache Acetaminophen (Tylenol 325mg Tab) 650 mg PO Q4 PRN PRN Reason: Other Last Admin: 02/10/18 06:25 Dose: 650 mg Nitrofurantoin Macrocrystals (Macrobid) 100 mg PO Q12 XIN PRN Reason: Protocol Last Admin: 02/11/18 09:09 Dose: 100 mg Ondansetron HCl (Zofran Inj) 4 mg IVP Q4 PRN PRN Reason: Nausea/Vomiting Pantoprazole Sodium (Protonix Ec Tab) 40 mg PO DAILY [facility] Last Admin: 02/11/18 09:09 Dose: 40 mg Tramadol HCl (Ultram) 50 mg PO Q6 PRN PRN Reason: Pain, Mild (1-3) Last Admin: 02/10/18 20:24 Dose: 50 mg - Labs Labs: 02/11/18 05:30 02/09/18 19:52 PT 51.0 Seconds (9.8-13.1) H* D 02/11/18 05:30 INR 4.5 (0.9-1.2) H D 02/11/18 05:30 APTT 59.4 Seconds (25.6-37.1) H D 02/11/18 05:30 - Head Exam Head Exam: ATRAUMATIC - Eye Exam Eye Exam: Normal appearance - ENT Exam ENT Exam: Mucous Membranes Dry - Respiratory Exam Respiratory Exam: NORMAL BREATHING PATTERN - Cardiovascular Exam Cardiovascular Exam: +S1, +S2 - GI/Abdominal Exam GI & Abdominal Exam: Normal Bowel Sounds Assessment and Plan (1) Coumadin toxicity Assessment & Plan: resolving s/p vit k and FFP Status: Acute (2) Protein S deficiency Assessment & Plan: with recurrent DVTs and PEs has IVC filter on anticoagulation Status: Acute (3) Anemia Assessment & Plan: iron deficiency likely chronic blood loss related PO iron as outpatient. Status: Acute
[2018-02-12 07:07] LABS: INR 6.5 (0.9-1.2); PARTIAL THROMBOPLASTIN TIME 68.3 Seconds (25.6-37.1); PROTHROMBIN TIME 75.4 Seconds (9.8-13.1)
[2018-02-12 07:41] LABS: HEMOGLOBIN 12.8 g/dL (12.0-18.0); MEAN CELL VOLUME 78.9 fl (80.0-94.0); MEAN CORPUSCULAR HEMOGLOBIN 25.3 pg (27.0-31.0); MEAN CORPUSCULAR HGB CONC 32.1 g/dL (33.0-37.0); RBC 5.06 Mil/uL (4.40-5.90); RED CELL DISTRIBUTION WIDTH 17.8 % (11.5-14.5)
[2018-02-12] MEDS: Pantoprazole 40 mg EC Tab PO SCH (08:41)
--- NOTE | 2018-02-12 11:58 | CP.PCM.PN ---
Subjective - Date & Time of Evaluation Date of Evaluation: 02/12/18 Time of Evaluation: 11:30 - Subjective Subjective: Patient was seen and examind at bedside. He is complaining of bladder/pelvic pain that comes and goes. He is requesting to talk further to psychiatry team. Informed that his INR was still supratherapeutic. Objective - Vital Signs/Intake and Output Vital Signs (last 24 hours): Temp Pulse Resp BP Pulse Ox 97.3 F L 77 20 120/79 99 02/12/18 08:26 02/12/18 08:26 02/12/18 08:26 02/12/18 08:26 02/12/18 08:26 - Medications Medications: Current Medications Acetaminophen (Tylenol 325mg Tab) 650 mg PO Q4 PRN PRN Reason: Headache Acetaminophen (Tylenol 325mg Tab) 650 mg PO Q4 PRN PRN Reason: Other Last Admin: 02/10/18 06:25 Dose: 650 mg Docusate Sodium (Colace) 100 mg PO BID [facility] Ferrous Sulfate (Feosol) 325 mg PO DAILY [facility] Last Admin: 02/12/18 11:18 Dose: 325 mg Nitrofurantoin Macrocrystals (Macrobid) 100 mg PO Q12 XIN PRN Reason: Protocol Last Admin: 02/12/18 08:41 Dose: 100 mg Ondansetron HCl (Zofran Inj) 4 mg IVP Q4 PRN PRN Reason: Nausea/Vomiting Oxybutynin Chloride (Ditropan Tab) 5 mg PO BID PRN PRN Reason: Bladder Spasm Pantoprazole Sodium (Protonix Ec Tab) 40 mg PO DAILY [facility] Last Admin: 02/12/18 08:41 Dose: 40 mg Tramadol HCl (Ultram) 50 mg PO Q6 PRN PRN Reason: Pain, Mild (1-3) Last Admin: 02/12/18 08:44 Dose: 50 mg - Labs Labs: 02/12/18 05:30 02/09/18 19:52 PT 75.4 Seconds (9.8-13.1) H* D 02/12/18 05:30 INR 6.5 (0.9-1.2) H D 02/12/18 05:30 APTT 68.3 Seconds (25.6-37.1) H D 02/12/18 05:30 - Additional Findings Additional findings: Physical exam: Constitutional- cooperative, awake, alert Head- NCAT, PERRL Eye- PERRL, EOMI ENT- normal exam, MMM. 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 The last episode was on the morning of admission when he coughed up bright red blood, however this has not been witnessed since admission and patient is guaic negative. Patient was then seen to have very elevated INR of 25.2 after overdosing on Coumadin, this has improved after Vit K and 2 units FFP. 1). Coumadin Toxicity - Hold Coumadin until INR is therapeutic. Patient to follow up with blood work - Vitamin K 10 mg given on 02/10, will give 5 mg po again today due to continued elevation of INR - Heme/onc consultation with Dr. Rashi Mims- recommends 2 units FFP which are being transfused today - Follow INR in AM, increased to 6.5 from 4.5 yesterday.Will give more vitamin K - Changed to full admission 2). Possible GI Bleed. Guaiac is negative and no sign of bleeding at present - Dr. Murray, GI, on consultation- no evidence of hematochezia or GI bleed - Rectal exam negative for bleeding, guiac negative - No need for upper or lower endoscopy 3). Cocaine Abuse - Watch for Withdrawal - Treat with Ativan/Clonidine 4). Protein S Deficiency - Restart Coumadin when INR is therapeutic 5). Intractable headache- resolved. Probably tension headache. CT head negative for bleed - Treat with Tylenol PRN 6). UTI Pyuria in patient with recurrent pyelonephritis - Macro Bid Q12H - Afebrile today - Started Oxybutynin 5 mg PO BID PRN for bladder spasms 7) Schizoaffective disorder vs bipolar disorder - Denies suicidal ideation - No 1:1 observation indicated at this time as per psychiatry - Psych re-evaluation recommended when he is stable for discharge - also need input on whether safe to send patient home on coumadin - Patient refusing psychiatric admission upon hospital discharge 8). hx of PE and DVT -Supratherapeutic INR #. Code Status: Full
[2018-02-13 01:38] VITALS: O2SAT 96
[2018-02-13 07:34] LABS: HEMOGLOBIN 13.1 g/dL (12.0-18.0); MEAN CELL VOLUME 78.5 fl (80.0-94.0); MEAN CORPUSCULAR HEMOGLOBIN 25.1 pg (27.0-31.0); RBC 5.2 Mil/uL (4.40-5.90); RED CELL DISTRIBUTION WIDTH 17.4 % (11.5-14.5); WHITE BLOOD COUNT 9.1 K/uL (4.8-10.8)
[2018-02-13 08:23] LABS: PROTHROMBIN TIME 57.8 Seconds (9.8-13.1)
[2018-02-13 08:53] VITALS: BP 103/67; PULSE 80; RESP 18; TEMP 97.8
[2018-02-13] MEDS: Pantoprazole 40 mg EC Tab PO SCH (09:40)
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
--- NOTE | 2018-02-13 13:07 | CP.PCM.PN ---
Subjective - Date & Time of Evaluation Date of Evaluation: 02/13/18 Time of Evaluation: 12:40 - Subjective Subjective: Feeling better, no bleeding. Objective - Vital Signs/Intake and Output Vital Signs (last 24 hours): Temp Pulse Resp BP Pulse Ox 97.8 F 80 18 103/67 96 02/13/18 08:52 02/13/18 08:52 02/13/18 08:52 02/13/18 08:52 02/13/18 08:52 - Medications Medications: Current Medications Acetaminophen (Tylenol 325mg Tab) 650 mg PO Q4 PRN PRN Reason: Headache Acetaminophen (Tylenol 325mg Tab) 650 mg PO Q4 PRN PRN Reason: Other Last Admin: 02/10/18 06:25 Dose: 650 mg Docusate Sodium (Colace) 100 mg PO BID [facility] Last Admin: 02/13/18 09:40 Dose: 100 mg Ferrous Sulfate (Feosol) 325 mg PO DAILY [facility] Last Admin: 02/13/18 09:40 Dose: 325 mg Nitrofurantoin Macrocrystals (Macrobid) 100 mg PO Q12 XIN PRN Reason: Protocol Last Admin: 02/13/18 09:40 Dose: 100 mg Ondansetron HCl (Zofran Inj) 4 mg IVP Q4 PRN PRN Reason: Nausea/Vomiting Oxybutynin Chloride (Ditropan Tab) 5 mg PO BID PRN PRN Reason: Bladder Spasm Last Admin: 02/13/18 09:40 Dose: 5 mg Pantoprazole Sodium (Protonix Ec Tab) 40 mg PO DAILY [facility] Last Admin: 02/13/18 09:40 Dose: 40 mg Tramadol HCl (Ultram) 50 mg PO Q6 PRN PRN Reason: Pain, Mild (1-3) Last Admin: 02/13/18 09:45 Dose: 50 mg - Labs Labs: 02/13/18 05:30 02/09/18 19:52 PT 57.8 Seconds (9.8-13.1) H* D 02/13/18 05:30 INR 5.0 (0.9-1.2) H D 02/13/18 05:30 APTT 68.3 Seconds (25.6-37.1) H D 02/12/18 05:30 - Head Exam Head Exam: ATRAUMATIC - Eye Exam Eye Exam: Normal appearance - ENT Exam ENT Exam: Mucous Membranes Dry - Respiratory Exam Respiratory Exam: NORMAL BREATHING PATTERN - Cardiovascular Exam Cardiovascular Exam: +S1, +S2 - GI/Abdominal Exam GI & Abdominal Exam: Normal Bowel Sounds Assessment and Plan (1) Protein S deficiency Assessment & Plan: with recurrent DVT/PE therapeutic anticoagulation and 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
--- NOTE | 2018-02-13 14:01 | CP.PCM.DIS ---
Provider - Provider Date of Admission: 02/11/18 09:28 Attending physician: Taqueria Markham Primary care physician: Dr. Paras Resendez Consults: Dr. Rashi Mims- heme/onc Dr. Murray- gastroenterology Dr. Guo- psychiatry Time Spent in preparation of Discharge (in minutes): 25 Hospital Course - Lab Results Lab Results: Most Recent Lab Values WBC 9.1 K/uL (4.8-10.8) 02/13/18 05:30 RBC 5.20 Mil/uL (4.40-5.90) 02/13/18 05:30 Hgb 13.1 g/dL (12.0-18.0) 02/13/18 05:30 Hct 40.8 % (35.0-51.0) 02/13/18 05:30 MCV 78.5 fl (80.0-94.0) L 02/13/18 05:30 MCH 25.1 pg (27.0-31.0) L 02/13/18 05:30 MCHC 32.0 g/dL (33.0-37.0) L 02/13/18 05:30 RDW 17.4 % (11.5-14.5) H 02/13/18 05:30 Plt Count 318 K/uL (130-400) 02/13/18 05:30 PT 57.8 Seconds (9.8-13.1) H* D 02/13/18 05:30 INR 5.0 (0.9-1.2) H D 02/13/18 05:30 APTT 68.3 Seconds (25.6-37.1) H D 02/12/18 05:30 Sodium 143 mmol/l (132-148) 02/09/18 19:52 Potassium 4.3 MMOL/L (3.6-5.0) 02/09/18 19:52 Chloride 104 mmol/L (98-107) 02/09/18 19:52 Carbon Dioxide 22 mmol/L (22-30) 02/09/18 19:52 Anion Gap 21 (10-20) H 02/09/18 19:52 BUN 12 mg/dl (9-20) 02/09/18 19:52 Creatinine 1.4 mg/dl (0.8-1.5) 02/09/18 19:52 Est GFR ( Amer) > 60 02/09/18 19:52 Est GFR (Non-Af Amer) 58 02/09/18 19:52 Random Glucose 94 mg/dL (75-110) 02/09/18 19:52 Calcium 9.1 mg/dL (8.4-10.2) 02/09/18 19:52 Ferritin 30.7 ng/Ml (17.9-464) 02/11/18 05:30 Total Bilirubin 0.3 mg/dl (0.2-1.3) 02/09/18 19:52 AST 32 U/L (17-59) 02/09/18 19:52 ALT 36 U/L (21-72) 02/09/18 19:52 Alkaline Phosphatase 79 U/L (38-126) 02/09/18 19:52 Total Protein 8.5 G/DL (6.3-8.2) H 02/09/18 19:52 Albumin 4.3 g/dL (3.5-5.0) 02/09/18 19:52 Globulin 4.2 gm/dL (2.2-3.9) H 02/09/18 19:52 Albumin/Globulin Ratio 1.0 (1.0-2.1) 02/09/18 19:52 Lipase 73 U/L (23-300) 02/09/18 19:52 Urine Color Yellow (YELLOW) 02/09/18 21:49 Urine Clarity Slighty-cloudy (Clear) 02/09/18 21:49 Urine pH 6.0 (5.0-8.0) 02/09/18 21:49 Ur Specific [place] 1.020 (1.003-1.030) 02/09/18 21:49 Urine Protein Negative mg/dL (NEGATIVE) 02/09/18 21:49 Urine Glucose (UA) Neg mg/dL (Normal) 02/09/18 21:49 Urine Ketones Negative mg/dL (NEGATIVE) 02/09/18 21:49 Urine Blood Small (NEGATIVE) 02/09/18 21:49 Urine Nitrate Negative (NEGATIVE) 02/09/18 21:49 Urine Bilirubin Negative (NEGATIVE) 02/09/18 21:49 Urine Urobilinogen 0.2-1.0 mg/dL (0.2-1.0) 02/09/18 21:49 Ur Leukocyte Esterase Mod [place]/uL (Negative) 02/09/18 21:49 Urine RBC (Auto) 8 /hpf (0-3) H 02/09/18 21:49 Urine Microscopic WBC 36 /hpf (0-5) H 02/09/18 21:49 Ur Squamous Epith Cells 1 /hpf (0-5) 02/09/18 21:49 Urine Bacteria Rare (<OCC) 02/09/18 21:49 Stool Occult Blood Negative (NEGATIVE) 02/09/18 21:49 Urine Opiates Screen Negative (NEGATIVE) 02/09/18 21:49 Urine Methadone Screen Negative (NEGATIVE) 02/09/18 21:49 Ur Barbiturates Screen Negative (NEGATIVE) 02/09/18 21:49 Ur Phencyclidine Scrn Negative (NEGATIVE) 02/09/18 21:49 Ur Amphetamines Screen Negative (NEGATIVE) 02/09/18 21:49 U Benzodiazepines Scrn Negative (NEGATIVE) 02/09/18 21:49 U Oth Cocaine Metabols Positive (NEGATIVE) H 02/09/18 21:49 U Cannabinoids Screen Negative (NEGATIVE) 02/09/18 21:49 Alcohol, Quantitative < 10 mg/dl (0-10) 02/09/18 19:52 Blood Type A POSITIVE 02/09/18 21:49 Blood Type Confirm A POSITIVE 02/10/18 12:05 Antibody Screen Negative 02/09/18 21:49 BBK History Checked No verified bt 02/09/18 21:49 - Hospital Course Hospital Course: 33 year old male with hx of F2M (Transgender), Protein S deficiency with multiple PE and DVT on Coumadin, presenting to the ED with complaint of 2 days of intermittent Hemoptisis, Hematemesis and Hematochezia. The last episode was on the morning of admission when he coughed up bright red blood, however this has not been witnessed since admission and patient is guaic negative. Patient was then seen to have very elevated INR of 25.2 after overdosing on Coumadin ( suicidal attempt), this has improved after Vit K and 2 units FFP. 1). Coumadin Toxicity- resolving - Hold Coumadin until INR is therapeutic. - Patient is cleared for discharge today by psychiatry. - Patient to not take Coumadin until Saturday - Patient recieved total of Vitamin K 15 mg and 2 units of FFP. - Heme/onc consultation with Dr. 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 Possible GI Bleed at home? Guaiac is negative and no sign of bleeding at present - Dr. Murray, GI, on consultation- no evidence of hematochezia or GI bleed - Rectal exam negative for bleeding, guiac negative - F/u with GI of his choice as outpatient 3). Cocaine Abuse - No evidence of withdrawal during admission stay - Instructed to abstain from further cocaine use 4). Protein S Deficiency - Restart Coumadin when INR is therapeutic (outpatietn) 5). Intractable headache- resolved. Probably tension headache. CT head negative for bleed - Treat with Tylenol PRN 6). UTI Pyuria in patient with recurrent pyelonephritis - Script for Cipro given - Afebrile today - Started Oxybutynin 5 mg PO BID PRN for bladder spasms 7) Schizoaffective disorder vs bipolar disorder - Denies suicidal ideation - No 1:1 observation indicated during admission - Psych re-evaluation: stable psychiatrically for discharge home - also need input on whether safe to send patient home on coumadin - Patient refusing psychiatric admission upon hospital discharge #. Code Status: Full Discharge Exam - Head Exam Head Exam: ATRAUMATIC - Additional Findings Additional findings: Physical exam: Constitutional- cooperative, awake, alert Head- NCAT, PERRL Eye- PERRL, EOMI ENT- normal exam, MMM. Neck- normal inspection, supple, no JVD Respiratory- CTAB, no wheezes rales rhonchi Cardiovascular- RRR, +S1, +S2 no MRG GI/Abdominal- normal bowel sounds, soft, no mass, no hsm Skin- warm, dry Extremities Exam- normal capillary refill, normal inspection Neurological Exam- alert, awake, oriented Psych- normal mood, normal affect Discharge Plan - Discharge Medications Prescriptions: Ciprofloxacin HCl [Cipro] 500 mg PO BID #14 tablet Docusate [Colace] 100 mg PO BID #30 cap Ferrous Sulfate [Feosol] 325 mg PO DAILY #30 tab Oxybutynin [Ditropan Tab] 5 mg PO BID PRN #30 tab PRN Reason: Bladder Spasm traMADol [Ultram] 50 mg PO Q6 PRN #20 tab PRN Reason: Pain, Mild (1-3) Warfarin [Coumadin] 5 mg PO DAILY #14 tab - Follow Up Plan Condition: FAIR Disposition: HOME/ ROUTINE Instructions: What to Do When Your INR Is Too High , Warfarin Additional Instructions: follow up with your primary MD in [address] Murrell restart coumadin on saturday Referrals: [facility] [Outside] Rashi Mims MD [Staff Provider] - Yuliya Vigil MD [Medical Doctor] -
== END 2018-02-13 14:18 | disposition home or self-care (01) | DRG 174 ==
LOC: H.ER 17:55 → H.ERHOLD 23:26 → H.MEDSURG1 02-10 02:33 → OBSVTOIN 02-11 09:28
PROVIDERS: ADMIT Internal Medicine; ATTEND Internal Medicine
PROC: 30233K1 Transfusion of Nonautologous Frozen Plasma into Peripheral Vein, Percutaneous Approach (ICD-10-PCS; principal; 2018-02-10)
DX: K92.0 Hematemesis (principal); D68.32 Hemorrhagic disorder due to extrinsic circulating anticoagulants; T45.515A Adverse effect of anticoagulants, initial encounter; D68.59 Other primary thrombophilia; F14.10 Cocaine abuse, uncomplicated; N39.0 Urinary tract infection, site not specified; K92.1 Melena; D50.0 Iron deficiency anemia secondary to blood loss (chronic); N11.8 Other chronic tubulo-interstitial nephritis; Z79.01 Long term (current) use of anticoagulants; F32.9 Major depressive disorder, single episode, unspecified; F43.10 Post-traumatic stress disorder, unspecified; F60.3 Borderline personality disorder; G44.209 Tension-type headache, unspecified, not intractable; F64.9 Gender identity disorder, unspecified; N32.89 Other specified disorders of bladder; J45.909 Unspecified asthma, uncomplicated; Z91.19 Patient's noncompliance with other medical treatment and regimen; Z91.5 Personal history of self-harm; Z86.711 Personal history of pulmonary embolism; Z86.718 Personal history of other venous thrombosis and embolism; Z88.2 Allergy status to sulfonamides; Z88.6 Allergy status to analgesic agent; Z91.012 Allergy to eggs; Y92.9 Unspecified place or not applicable

== ENCOUNTER 2018-09-16 12:13 | Inpatient (IN) | payer MEDICAID ==
[2018-09-16] MEDS ORDERED: Sodium Chloride 0.9% 1,000 ML IV STA (12:57)
--- NOTE | 2018-09-16 13:14 | ED PDOC ---
HPI: General Adult Time Seen by Provider: 09/16/18 12:47 Chief Complaint (Nursing): Ingestion, Accidental Chief Complaint (Provider): Coumadin use History Per: Patient History/Exam Limitations: no limitations Onset/Duration Of Symptoms: Days Additional Complaint(s): Pt. states he was drinking last night and passed out in his room. Woke up with missing coumadin pills and cough up blood tinge phlegm 2 times. Denies chest pain, dyspnea. Has light-headedness. No headaches, abd pain, nausea, vomit, diarrhea. No weakness. No neck pain. Denies suicidal or homicidal ideation. No drugs. Has had similar episode like this in the past. Past Medical History Vital Signs: Last Vital Signs Temp 98.6 F 09/16/18 12:41 Pulse 90 09/16/18 12:41 Resp 18 09/16/18 12:41 BP 105/72 09/16/18 12:41 Pulse Ox 99 09/16/18 12:41 - Medical History PMH: Anxiety, Asthma, Depression, Deep Vein Thrombosis, Pulmonary Embolism Denies: Anemia, Diabetes, Hepatitis, HIV, HTN, Chronic Kidney Disease, Seizures, Sexually Transmitted Disease Other PMH: protein deficiency - Surgical History Surgical History: Tonsillectomy - Family History Family History: States: Unknown Family Hx - Home Medications Home Medications: Ambulatory Orders Medication Instructions Recorded Testosterone Cypionate 0.5 ml IM SUN 09/16/18 [Depo-Testosterone Inj] Warfarin [Coumadin] 7.5 mg PO DAILY 09/16/18 - Allergies Allergies/Adverse Reactions: Allergies Allergy/AdvReac Type Severity Reaction Status Date / Time EGG Allergy ITCHING Verified 09/16/18 12:41 fentanyl Allergy SHORTNESS Verified 09/16/18 12:41 OF BREATH sulfamethoxazole Allergy SHORTNESS Verified 09/16/18 12:41 [From Bactrim] OF BREATH trimethoprim [From Bactrim] Allergy SHORTNESS Verified 09/16/18 12:41 OF BREATH acetaminophen [From Percocet] AdvReac VOMITING Verified 09/16/18 12:41 oxycodone [From Percocet] AdvReac VOMITING Verified 09/16/18 12:41 Review of Systems ROS Statement: Except As Marked, All Systems Reviewed And Found Negative Respiratory: Positive for: Cough, Hemoptysis Neurological: Positive for: Dizziness Physical Exam - Reviewed Nursing Documentation Reviewed: Yes Vital Signs Reviewed: Yes - Physical Exam Appears: Positive for: Non-toxic, No Acute Distress Head Exam: Positive for: ATRAUMATIC, NORMAL INSPECTION, NORMOCEPHALIC Skin: Positive for: Normal Color, Warm, DRY Eye Exam: Positive for: EOMI, Normal appearance, PERRL ENT: Positive for: Normal ENT Inspection Neck: Positive for: Normal, Painless ROM, Supple Cardiovascular/Chest: Positive for: Regular Rate, Rhythm Respiratory: Positive for: CNT, Normal Breath Sounds Gastrointestinal/Abdominal: Positive for: Normal Exam, Soft. Negative for: Tenderness Back: Positive for: Normal Inspection. Negative for: L CVA Tenderness, R CVA Tenderness Extremity: Positive for: Normal ROM. Negative for: Tenderness, Pedal Edema Neurologic/Psych: Positive for: Alert, airport manager II-XII, Oriented. Negative for: Motor/Sensory Deficits, Aphasia, Facial Droop - Laboratory Results Result Diagrams: 09/16/18 13:45 09/16/18 15:20 Interpretation Of Abn Labs: no acute - ECG ECG: Positive for: Interpreted By Me, Viewed By Me ECG Rhythm: Positive for: Sinus Rhythm, Nonspecific Changes O2 Sat by Pulse Oximetry: 99 Pulse Ox Interpretation: Normal - Radiology X-Ray: Read By Radiologist X-Ray Interpretation: No Acute Disease - CT Scan/US ct Other Rad Studies (CT/US): Read By Radiologist Other Rad Interpretation: head and chest no acute - Progress ED Course And Treament: 1755: Stable. AAOx3. Pain free. Nurse spoke with poison. Will need obs and repeat labs/INR. 1804: Stable. Spoke with Dr. Arreaga who will admit. Disposition - Clinical Impression Clinical Impression: Overdose of coumadin - Patient ED Disposition Is Patient to be Admitted: Yes Counseled Patient/Family Regarding: Studies Performed, Diagnosis - Disposition Disposition Time: 18:04 Condition: FAIR - Pt Status Changed To: Hospital Disposition Of: Observation - POA Present On Arrival: None
[2018-09-16 13:57] LABS: BASO % 0.5 % (0.0-2.0); EOS # 0.1 K/uL (0.0-0.7); EOS % 1.3 % (0.0-4.0); HEMOGLOBIN 13.4 g/dL (12.0-18.0); LYMPH # 2.3 K/uL (1.0-4.3); LYMPH % 29.7 % (20.0-40.0); MEAN CELL VOLUME 79.4 fl (80.0-94.0); MEAN CORPUSCULAR HEMOGLOBIN 25.5 pg (27.0-31.0); MEAN CORPUSCULAR HGB CONC 32.1 g/dL (33.0-37.0); MEAN PLATELET VOLUME 8.1 fl (7.2-11.7); MONO # 0.4 K/uL (0.0-0.8); MONO % 5.5 % (0.0-10.0); NEUT # 4.8 K/uL (1.8-7.0); NRBC % 0.1 % (0.0-0.0); RBC 5.24 Mil/uL (4.40-5.90); RED CELL DISTRIBUTION WIDTH 15.9 % (11.5-14.5); WHITE BLOOD COUNT 7.6 K/uL (4.8-10.8)
[2018-09-16 14:09] LABS: INR 2.6
[2018-09-16 14:12] LABS: PARTIAL THROMBOPLASTIN TIME 29.2 Seconds (25.6-37.1)
--- NOTE | 2018-09-16 14:25 | RAD ---
Date of service: 09/16/2018 HISTORY: cough COMPARISON: 12/16/2017 FINDINGS: LUNGS: The lungs are well inflated and clear. PLEURA: No pleural effusions or pneumothorax. CARDIOVASCULAR: The heart is normal in size. No aortic atherosclerotic calcification present. OSSEOUS STRUCTURES: Within normal limits for the patient's age. VISUALIZED UPPER ABDOMEN: Normal. OTHER FINDINGS: None. IMPRESSION: No active pulmonary disease.
[2018-09-16 15:12] LABS: PROTHROMBIN TIME 29.3 Seconds (9.8-13.1)
[2018-09-16 15:46] LABS: ACETAMINOPHEN < 10.0 ug/ml (10.0-30.0); SALICYLATE < 1.0 mg/dl
[2018-09-16 15:49] LABS: ALB/GLOB RATIO 1.1 (1.0-2.1); ALT/SGPT 35 U/L (21-72); AST/SGOT 46 U/L (17-59); BLOOD UREA NITROGEN 9 mg/dl (9-20); CALCIUM 8.7 mg/dL (8.4-10.2); GFR NON-AFRICAN AMERICAN > 60
[2018-09-16 15:59] LABS: B-TYPE NATRIURETIC PEPTIDE 58.7 pg/ml (0-450)
[2018-09-16] MEDS ORDERED: Iodixanol 320 MG/ML 100 ML BOTTLE IV ONE (16:10)
[2018-09-16] MEDS ORDERED: Sodium Chloride 0.9% 50 ML IV ONE (16:11)
--- NOTE | 2018-09-16 16:50 | CT ---
Date of service: 09/16/2018 PROCEDURE: CT HEAD WITHOUT CONTRAST. HISTORY: Headache COMPARISON: 02/09/2018. TECHNIQUE: Axial computed tomography images were obtained through the head/brain without intravenous contrast. Radiation dose: Total exam DLP = 876.44 mGy-cm. This CT exam was performed using one or more of the following dose reduction techniques: Automated exposure control, adjustment of the mA and/or kV according to patient size, and/or use of iterative reconstruction technique. FINDINGS: HEMORRHAGE: No intracranial hemorrhage. BRAIN: Noriega-white matter differentiation is preserved. There is no mass, mass effect or abnormal extra-axial fluid collection. There is no territorial infarction. The midline sagittal structures are normal. VENTRICLES: The ventricles are normal in size, shape and configuration. CALVARIUM: There is no calvarial fracture or extracranial soft tissue swelling. PARANASAL SINUSES: Predominantly clear. MASTOID AIR CELLS: Predominantly clear. OTHER FINDINGS: None. IMPRESSION: No acute intracranial abnormality.
--- NOTE | 2018-09-16 17:04 | CT ---
Date of service: 09/16/2018 PROCEDURE: CT Chest with contrast (Pulmonary Angiogram) HISTORY: chest pain COMPARISON: Plain radiograph performed earlier the same day. TECHNIQUE: Axial computed tomography images were obtained of the chest in the pulmonary arterial phase of enhancement. Coronal and sagittal reformatted images were created and reviewed. Intravenous contrast dose: 98 mL Visipaque 320 Radiation dose: Total exam DLP = 395.97 mGy-cm. This CT exam was performed using one or more of the following dose reduction techniques: Automated exposure control, adjustment of the mA and/or kV according to patient size, and/or use of iterative reconstruction technique. FINDINGS: PULMONARY ARTERIES: There are no filling defects in the pulmonary arteries to suggest acute pulmonary embolism. AORTA: No acute findings. No thoracic aortic aneurysm. No aortic atherosclerotic calcification or mural plaque present. LUNGS: The lungs are well inflated and clear. No nodule, mass or pulmonary consolidation. PLEURAL SPACES: No effusion or pneumothorax. HEART: There is mild cardiomegaly. No significant pericardial effusion. LYMPH NODES: No pathologic lymphadenopathy. BONES, CHEST WALL: Within normal limits for the patient's age. No fracture or destructive lesion OTHER FINDINGS: Unremarkable. IMPRESSION: No CTA evidence for acute pulmonary embolism. Clear lungs.
[2018-09-16 18:03] LABS: BARBITURATES, UR NEGATIVE (NEGATIVE); BENZODIAZEPINES, UR NEGATIVE (NEGATIVE); OPIATES, UR NEGATIVE (NEGATIVE); PHENCYCLIDINE, UR NEGATIVE (NEGATIVE)
--- NOTE | 2018-09-16 18:15 | CARD ---
APPROVED REPORT Date of service: 09/16/2018 EKG Measurement Heart [id number] <Conclusion> Normal sinus rhythm ST elevation, consider early repolarization, pericarditis, or injury Abnormal ECG
[2018-09-17 04:36] LABS: HEMOGLOBIN 12.1 g/dL (12.0-18.0); MEAN CELL VOLUME 79.4 fl (80.0-94.0); MEAN CORPUSCULAR HEMOGLOBIN 25.6 pg (27.0-31.0); MEAN CORPUSCULAR HGB CONC 32.3 g/dL (33.0-37.0); RBC 4.71 Mil/uL (4.40-5.90); WHITE BLOOD COUNT 7.5 K/uL (4.8-10.8)
[2018-09-17 04:54] LABS: ALB/GLOB RATIO 1.1 (1.0-2.1); ALT/SGPT 28 U/L (21-72); AST/SGOT 53 U/L (17-59); BLOOD UREA NITROGEN 14 mg/dl (9-20); CALCIUM 9.3 mg/dL (8.4-10.2); GFR NON-AFRICAN AMERICAN > 60
[2018-09-17] MEDS ORDERED: Influenza Vaccine 60 MCG/0.5 ML SYR (3 yr & up) IM ONE (07:27)
--- NOTE | 2018-09-17 07:44 | CP.PCM.HP ---
<Sacha Alston - Last Filed: 09/17/18 08:29> History of Present Illness - History of Present Illness History of Present Illness: 33 y/o F-2- M transgender admitted for evaluation and management of alcohol abuse and coumadin overdose. Pt explains drinking alcohol 2 nights ago, passing out and finding there were missing coumadin pills on bottle. Pt reports coughing blood tinged sputum yesterday. Pt admitted to hospital 7 months ago for elevated INR and coumadin overdose. --Pt was seen and examined by bedside with Dr Arreaga. Pt feeling uncomfortable, choosing not answer questions, only asked for psychiatrist evaluation. Pt afebrile overnight, with No acute events overnight. 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 FHx: States: No known family hx Present on Admission - Present on Admission Any Indicators Present on Admission: No Review of Systems - Constitutional Constitutional: absent: Chills, Fever - EENT Nose/Mouth/Throat: absent: Nasal Congestion, Sore Throat, Facial Pain, Neck Pain - Respiratory Respiratory: absent: Cough, Dyspnea, Hemoptysis - Gastrointestinal Gastrointestinal: absent: Abdominal Pain, Bloating, Nausea - Genitourinary Genitourinary: absent: Dysuria, Hematuria Past Patient History - Past Medical History & Family History Past Medical History?: Yes - Past Social History Smoking Status: Never Smoked - CARDIAC Hx Hypertension: No - PULMONARY Hx Asthma: Yes Hx Pulmonary Embolism: Yes - NEUROLOGICAL Hx Seizures: No - HEENT Hx HEENT Problems: No - RENAL Hx Chronic Kidney Disease: No - ENDOCRINE/METABOLIC Hx Endocrine Disorders: No - HEMATOLOGICAL/ONCOLOGICAL Hx Anemia: No Hx Human Immunodeficiency Virus (HIV): No - INTEGUMENTARY Hx Dermatological Problems: No - MUSCULOSKELETAL/RHEUMATOLOGICAL Hx Musculoskeletal Disorders: No Hx Falls: No - GASTROINTESTINAL Hx Gastrointestinal Disorders: No - GENITOURINARY/GYNECOLOGICAL Hx Sexually Transmitted Disorders: No - PSYCHIATRIC Hx Anxiety: Yes Hx Depression: Yes - SURGICAL HISTORY Hx Tonsillectomy: Yes - ANESTHESIA Hx Anesthesia: Yes Hx Anesthesia Reactions: Yes (Fentanyl (hives)) Hx Malignant Hyperthermia: No Meds Allergies/Adverse Reactions: Allergies Allergy/AdvReac Type Severity Reaction Status Date / Time fentanyl Allergy SHORTNESS Verified 09/16/18 12:41 OF BREATH sulfamethoxazole Allergy SHORTNESS Verified 09/16/18 12:41 [From Bactrim] OF BREATH trimethoprim [From Bactrim] Allergy SHORTNESS Verified 09/16/18 12:41 OF BREATH acetaminophen [From Percocet] AdvReac VOMITING Verified 09/16/18 12:41 oxycodone [From Percocet] AdvReac VOMITING Verified 09/16/18 12:41 Physical Exam - Constitutional Appears: No Acute Distress - Head Exam Head Exam: ATRAUMATIC, NORMAL INSPECTION - Eye Exam Eye Exam: EOMI - ENT Exam ENT Exam: Mucous Membranes Dry - Neck Exam Neck exam: Positive for: Full Rom - Respiratory Exam Respiratory Exam: NORMAL BREATHING PATTERN. absent: Rhonchi, Wheezes - Cardiovascular Exam Cardiovascular Exam: Bradycardia, +S1, +S2 - GI/Abdominal Exam GI & Abdominal Exam: Normal Bowel Sounds, Soft. absent: Tenderness - Extremities Exam Extremities exam: Positive for: full ROM, normal inspection. Negative for: calf tenderness - Back Exam Back exam: absent: CVA tenderness (L), CVA tenderness (R) - Neurological Exam Neurological exam: Alert, Oriented x3 Results - Vital Signs Recent Vital Signs: Last Vital Signs Temp 98.2 F 09/17/18 06:49 Pulse 65 09/17/18 06:49 Resp 18 09/17/18 06:49 BP 117/70 09/17/18 06:49 Pulse Ox 96 09/17/18 06:49 - Labs Result Diagrams: 09/17/18 04:30 09/17/18 04:30 Labs: Laboratory Results - last 24 hr 09/16/18 09/16/18 09/16/18 13:45 13:45 15:20 WBC 7.6 RBC 5.24 Hgb 13.4 Hct 41.6 MCV 79.4 L MCH 25.5 L MCHC 32.1 L RDW 15.9 H Plt Count 297 MPV 8.1 Neut % (Auto) 63.0 Lymph % (Auto) 29.7 [place] % (Auto) 5.5 Eos % (Auto) 1.3 Baso % (Auto) 0.5 Neut # (Auto) 4.8 Lymph # (Auto) 2.3 [place] # (Auto) 0.4 Eos # (Auto) 0.1 Baso # (Auto) 0.0 PT 29.3 H INR 2.6 APTT 29.2 Sodium Potassium Chloride Carbon Dioxide Anion Gap BUN Creatinine Est GFR ( Amer) Est GFR (Non-Af Amer) Random Glucose Calcium Total Bilirubin AST ALT Alkaline Phosphatase Troponin I NT-Pro-B Natriuret Pep Total Protein Albumin Globulin Albumin/Globulin Ratio Salicylates < 1.0 Urine Opiates Screen Urine Methadone Screen Acetaminophen < 10.0 L Ur Barbiturates Screen Ur Phencyclidine Scrn Ur Amphetamines Screen U Benzodiazepines Scrn U Oth Cocaine Metabols U Cannabinoids Screen Alcohol, Quantitative 09/16/18 09/16/18 09/17/18 15:20 17:30 04:30 WBC RBC Hgb Hct MCV MCH MCHC RDW Plt Count MPV Neut % (Auto) Lymph % (Auto) [place] % (Auto) Eos % (Auto) Baso % (Auto) Neut # (Auto) Lymph # (Auto) [place] # (Auto) Eos # (Auto) Baso # (Auto) PT INR APTT Sodium 140 140 Potassium 4.1 4.5 Chloride 107 107 Carbon Dioxide 26 27 Anion Gap 11 11 BUN 9 14 Creatinine 1.1 1.2 Est GFR ( Amer) > 60 > 60 Est GFR (Non-Af Amer) > 60 > 60 Random Glucose 143 H 138 H Calcium 8.7 9.3 Total Bilirubin 0.1 L 0.1 L AST 46 53 ALT 35 28 Alkaline Phosphatase 69 69 Troponin I < 0.0120 NT-Pro-B Natriuret Pep 58.7 Total Protein 7.6 7.4 Albumin 4.0 4.0 Globulin 3.5 3.5 Albumin/Globulin Ratio 1.1 1.1 Salicylates Urine Opiates Screen Negative Urine Methadone Screen Negative Acetaminophen Ur Barbiturates Screen Negative Ur Phencyclidine Scrn Negative Ur Amphetamines Screen Negative U Benzodiazepines Scrn Negative U Oth Cocaine Metabols Positive H U Cannabinoids Screen Negative Alcohol, Quantitative < 10 09/17/18 04:30 WBC 7.5 RBC 4.71 Hgb 12.1 Hct 37.4 MCV 79.4 L MCH 25.6 L MCHC 32.3 L RDW 16.0 H Plt Count 259 MPV Neut % (Auto) Lymph % (Auto) [place] % (Auto) Eos % (Auto) Baso % (Auto) Neut # (Auto) Lymph # (Auto) [place] # (Auto) Eos # (Auto) Baso # (Auto) PT INR APTT Sodium Potassium Chloride Carbon Dioxide Anion Gap BUN Creatinine Est GFR ( Amer) Est GFR (Non-Af Amer) Random Glucose Calcium Total Bilirubin AST ALT Alkaline Phosphatase Troponin I NT-Pro-B Natriuret Pep Total Protein Albumin Globulin Albumin/Globulin Ratio Salicylates Urine Opiates Screen Urine Methadone Screen Acetaminophen Ur Barbiturates Screen Ur Phencyclidine Scrn Ur Amphetamines Screen U Benzodiazepines Scrn U Oth Cocaine Metabols U Cannabinoids Screen Alcohol, Quantitative Assessment & Plan - Assessment and Plan (Free Text) Assessment: 33 y/o M with a PMHx of F2M (Transgender), Protein S deficiency with multiple PE and DVT on Coumadin, is admitted for evaluation and management coumadin overdose. PLAN: --Admitted to ICU --Psychiatry consult for suicidal attempt. --Repeat coagulation profile. --Observation as per coumadin long half-life. --Home med resumed. Warfarin on hold. --Continue management as ordered. Case discussed with Dr Gibson Cain, AMEE - Date & Time Date: 09/17/18 Time: 08:56 <Asael Arreaga - Last Filed: 09/20/18 07:01> Results - Vital Signs Recent Vital Signs: Last Vital Signs Temp 98.1 F 09/19/18 13:00 Pulse 105 H 09/19/18 13:00 Resp 19 09/19/18 13:00 BP 126/83 09/19/18 13:00 Pulse Ox 100 09/19/18 13:00 - Labs Result Diagrams: 09/17/18 04:30 09/17/18 04:30 Assessment & Plan - Assessment and Plan (Free Text) Assessment: Patient was personally seen and examined by me in rounds with residents. Available labs and diagnostic data reviewed. Case, Patient's condition and management plan discussed with residents in rounds. Agree with resident's progress note. Plan: As ordered.
[2018-09-17 09:28] LABS: PARTIAL THROMBOPLASTIN TIME 46.1 Seconds (25.6-37.1)
[2018-09-17 10:16] LABS: INR 6.1
[2018-09-17 10:18] LABS: PROTHROMBIN TIME 69.9 Seconds (9.8-13.1)
[2018-09-17 10:49] VITALS: BMI 46.3
--- NOTE | 2018-09-17 11:21 | CP.PCM.PCO ---
Physician Communication Note - Physician Communication Note Physician Communication Note: Per Psych, recommend 1 to 1
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
[2018-09-17 19:03] LABS: INR 7.1; PROTHROMBIN TIME 81.3 Seconds (9.8-13.1)
[2018-09-17] MEDS ORDERED: Phytonadione 10 mg/ml Inj (Adult) SC ONE (19:40)
[2018-09-17] MEDS ORDERED: Pneumococcal 23-Valent Vaccine IM ONE (22:23)
[2018-09-18 06:02] LABS: INR 7.2; PROTHROMBIN TIME 82.4 Seconds (9.8-13.1)
--- NOTE | 2018-09-18 13:15 | PQF ---
PROVIDER RESPONSE TEXT: Pt reported coumadin overdose was a suicidal attempt. REVIEWER QUERY TEXT: Documentation Clarification Your help is requested in clarifying the following clinical documentation, if you can please further specify in the medical record and discharge summary. Please clarify after workup if the Coumadin overdose was accidental or intentional. Psych consult notes: "pt allowed the undersigned to speak to the foster mother, she reported that the pt has called her and reported to her that he has overdosed on coumadin on purpose as he was tired o f his life, she called the police but pt ended coming to the hospital by himself . The patient's Clinical Indicators include: ER Note: " Pt. states he was drinking last night and passed out in his room. Woke up with missing Cou madin pills and coughing up blood tinge phlegm 2 times". INR: 2.6-> 6.1-> 7.1-> 7.2 RX: Vitamin K x 1 dose Query created by: Rut Cristina on 09/18/2018 9:05 AM Electronically signed by: Sacha Alston 09/18/2018 1:13 PM
--- NOTE | 2018-09-18 14:54 | CP.PCM.PN ---
Subjective - Date & Time of Evaluation Date of Evaluation: 09/18/18 Time of Evaluation: 09:20 - Subjective Subjective: 33 y/o M was seen and examined by bedside with Dr Reilly. Pt with poor eye contact, reports feeling not OK. Pt denies hemoptysis, hematemesis, hematuria or hematochezia. Pt afebrile, toleratign PO with NO acute events overnight. Objective - Vital Signs/Intake and Output Vital Signs (last 24 hours): Temp Pulse Resp BP Pulse Ox 97.6 F 85 18 92/59 L 100 09/18/18 09:00 09/18/18 09:00 09/18/18 09:00 09/18/18 09:00 09/18/18 09:00 Intake and Output: 09/18/18 09/18/18 06:59 18:59 Intake Total 120 Balance 120 - Medications Medications: Current Medications Home Med (Testosterone Cypionate [Depo-Testosterone Inj]) 0.5 ml IM SUN [facility] - Labs Labs: 09/17/18 04:30 09/17/18 04:30 PT 82.4 Seconds (9.8-13.1) H* 09/18/18 05:10 INR 7.2 09/18/18 05:10 APTT 46.1 Seconds (25.6-37.1) H 09/17/18 08:55 - Additional Findings Additional findings: - Constitutional Appears: No Acute Distress - Head Exam Head Exam: ATRAUMATIC, NORMAL INSPECTION - Eye Exam Eye Exam: EOMI - ENT Exam ENT Exam: Mucous Membranes Dry - Neck Exam Neck exam: Positive for: Full Rom - Respiratory Exam Respiratory Exam: NORMAL BREATHING PATTERN. absent: Rhonchi, Wheezes - Cardiovascular Exam Cardiovascular Exam: Bradycardia, +S1, +S2 - GI/Abdominal Exam GI & Abdominal Exam: Normal Bowel Sounds, Soft. absent: Tenderness - Extremities Exam Extremities exam: Positive for: full ROM, normal inspection. Negative for: calf tenderness - Back Exam Back exam: absent: CVA tenderness (L), CVA tenderness (R) - Neurological Exam Neurological exam: Alert, Oriented x3 Assessment and Plan - Assessment and Plan (Free Text) Assessment: 33 y/o M with a PMHx of F2M (Transgender), Protein S deficiency with multiple PE and DVT on Coumadin, is admitted for evaluation and management coumadin overdose. PLAN: --Stable, INR - elevated. NOT actively bleeding. Hgb stable. --Warfarin on HOLD. --S/P vitamin K administration. --Pt confirmed this was a suicidal attempt. Will transfer to psych unit once medically cleared. --Psychiatry on board, Dr Vigil. --Repeat coagulation profile tomorrow --Observation as per coumadin long half-life. --Continue management as ordered. Case discussed with Dr Reilly who agrees with the above AMEE Cain PGY-2
[2018-09-19 05:30] LABS: PROTHROMBIN TIME 34.1 Seconds (9.8-13.1)
[2018-09-19 08:07] VITALS: O2SAT 100
--- NOTE | 2018-09-19 09:01 | CP.PCM.DIS ---
Provider - Provider Date of Admission: 09/17/18 15:01 Attending physician: Asael Arreaga MD Consults: Psychiatry: Dr Vigil Time Spent in preparation of Discharge (in minutes): 25 Diagnosis - Discharge Diagnosis (1) Overdose of coumadin Status: Acute Comment: -Suicidal attempt, needs psychiatry amnagement. D/C tp Psych unit Hospital Course - Lab Results Lab Results: Micro Results 09/17/18 14:17 Nose MRSA Culture (Admit) - Final MRSA NOT DETECTED Most Recent Lab Values WBC 7.5 K/uL (4.8-10.8) 09/17/18 04:30 RBC 4.71 Mil/uL (4.40-5.90) 09/17/18 04:30 Hgb 12.1 g/dL (12.0-18.0) 09/17/18 04:30 Hct 37.4 % (35.0-51.0) 09/17/18 04:30 MCV 79.4 fl (80.0-94.0) L 09/17/18 04:30 MCH 25.6 pg (27.0-31.0) L 09/17/18 04:30 MCHC 32.3 g/dL (33.0-37.0) L 09/17/18 04:30 RDW 16.0 % (11.5-14.5) H 09/17/18 04:30 Plt Count 259 K/uL (130-400) 09/17/18 04:30 MPV 8.1 fl (7.2-11.7) 09/16/18 13:45 Neut % (Auto) 63.0 % (50.0-75.0) 09/16/18 13:45 Lymph % (Auto) 29.7 % (20.0-40.0) 09/16/18 13:45 [place] % (Auto) 5.5 % (0.0-10.0) 09/16/18 13:45 Eos % (Auto) 1.3 % (0.0-4.0) 09/16/18 13:45 Baso % (Auto) 0.5 % (0.0-2.0) 09/16/18 13:45 Neut # (Auto) 4.8 K/uL (1.8-7.0) 09/16/18 13:45 Lymph # (Auto) 2.3 K/uL (1.0-4.3) 09/16/18 13:45 [place] # (Auto) 0.4 K/uL (0.0-0.8) 09/16/18 13:45 Eos # (Auto) 0.1 K/uL (0.0-0.7) 09/16/18 13:45 Baso # (Auto) 0.0 K/uL (0.0-0.2) 09/16/18 13:45 PT 34.1 Seconds (9.8-13.1) H D 09/19/18 04:20 INR 3.0 09/19/18 04:20 APTT 46.1 Seconds (25.6-37.1) H 09/17/18 08:55 Sodium 140 mmol/l (132-148) 09/17/18 04:30 Potassium 4.5 MMOL/L (3.6-5.0) 09/17/18 04:30 Chloride 107 mmol/L (98-107) 09/17/18 04:30 Carbon Dioxide 27 mmol/L (22-30) 09/17/18 04:30 Anion Gap 11 (10-20) 09/17/18 04:30 BUN 14 mg/dl (9-20) 09/17/18 04:30 Creatinine 1.2 mg/dl (0.8-1.5) 09/17/18 04:30 Est GFR ( Amer) > 60 09/17/18 04:30 Est GFR (Non-Af Amer) > 60 09/17/18 04:30 Random Glucose 138 mg/dL (75-110) H 09/17/18 04:30 Calcium 9.3 mg/dL (8.4-10.2) 09/17/18 04:30 Total Bilirubin 0.1 mg/dl (0.2-1.3) L 09/17/18 04:30 AST 53 U/L (17-59) 09/17/18 04:30 ALT 28 U/L (21-72) 09/17/18 04:30 Alkaline Phosphatase 69 U/L (38-126) 09/17/18 04:30 Troponin I < 0.0120 ng/mL (0.00-0.120) 09/16/18 15:20 NT-Pro-B Natriuret Pep 58.7 pg/ml (0-450) 09/16/18 15:20 Total Protein 7.4 G/DL (6.3-8.2) 09/17/18 04:30 Albumin 4.0 g/dL (3.5-5.0) 09/17/18 04:30 Globulin 3.5 gm/dL (2.2-3.9) 09/17/18 04:30 Albumin/Globulin Ratio 1.1 (1.0-2.1) 09/17/18 04:30 Salicylates < 1.0 mg/dl 09/16/18 15:20 Urine Opiates Screen Negative (NEGATIVE) 09/16/18 17:30 Urine Methadone Screen Negative (NEGATIVE) 09/16/18 17:30 Acetaminophen < 10.0 ug/ml (10.0-30.0) L 09/16/18 15:20 Ur Barbiturates Screen Negative (NEGATIVE) 09/16/18 17:30 Ur Phencyclidine Scrn Negative (NEGATIVE) 09/16/18 17:30 Ur Amphetamines Screen Negative (NEGATIVE) 09/16/18 17:30 U Benzodiazepines Scrn Negative (NEGATIVE) 09/16/18 17:30 U Oth Cocaine Metabols Positive (NEGATIVE) H 09/16/18 17:30 U Cannabinoids Screen Negative (NEGATIVE) 09/16/18 17:30 Alcohol, Quantitative < 10 mg/dl (0-10) 09/16/18 15:20 - Hospital Course Hospital Course: 33 y/o M with a PMHx of F2M (Transgender), Protein S deficiency with multiple PE and DVT on Coumadin, is admitted for evaluation and management of coumadin overdose. Warfarin was held for 3 days and IV vitamin K administered. No bleeding episodes during hospitalization. INR remained elevated for the past 2 days. Today's INR 3.0 in therapeutic range. Pt confirmed this was a suicidal attempt. Pt is medically stable to be transferred to psych unit, will re- initiate coumadin therapy at 5mg daily and will f/u INR level closely. - Date & Time of H&P Date of H&P: 09/17/18 Time of H&P: 07:44 Discharge Exam - Head Exam Head Exam: ATRAUMATIC, NORMAL INSPECTION - Additional Findings Additional findings: - Constitutional Appears: No Acute Distress - Eye Exam Eye Exam: EOMI - ENT Exam ENT Exam: Mucous Membranes Dry - Neck Exam Neck exam: Positive for: Full Rom - Respiratory Exam Respiratory Exam: NORMAL BREATHING PATTERN. absent: Rhonchi, Wheezes - Cardiovascular Exam Cardiovascular Exam: Bradycardia, +S1, +S2 - GI/Abdominal Exam GI & Abdominal Exam: Normal Bowel Sounds, Soft. absent: Tenderness - Extremities Exam Extremities exam: Positive for: full ROM, normal inspection. Negative for: calf tenderness - Back Exam Back exam: absent: CVA tenderness (L), CVA tenderness (R) - Neurological Exam Neurological exam: Alert, Oriented x3 Discharge Plan - Follow Up Plan Condition: GOOD Disposition: HOSPICE - HOME
[2018-09-19] MEDS ORDERED: [UNRECOGNIZED DRUG - REMARK] IM ONE (12:16)
--- NOTE | 2018-09-19 13:25 | CP.PCM.PN ---
<Sacha Alston - Last Filed: 09/19/18 13:26> Subjective - Date & Time of Evaluation Date of Evaluation: 09/19/18 Time of Evaluation: 07:00 - Subjective Subjective: 33 y/o M was seen and examined by bedside with Dr Arreaga. Pt reports feeling so- so. Pt denies hemoptysis, hematemesis, hematuria or hematochezia. Pt afebrile, tolerating PO with NO acute events overnight. Objective - Vital Signs/Intake and Output Vital Signs (last 24 hours): Temp Pulse Resp BP Pulse Ox 98.4 F 78 18 96/61 L 100 09/19/18 08:06 09/19/18 09:00 09/19/18 08:06 09/19/18 08:06 09/19/18 08:06 - Medications Medications: Current Medications Home Med (Testosterone Cypionate [Depo-Testosterone Inj]) 0.5 ml IM [facility] Lorazepam (Ativan) 1 mg PO Q8 PRN PRN Reason: Anxiety Last Admin: 09/19/18 03:35 Dose: 1 mg - Labs Labs: 09/17/18 04:30 09/17/18 04:30 PT 34.1 Seconds (9.8-13.1) H D 09/19/18 04:20 INR 3.0 09/19/18 04:20 APTT 46.1 Seconds (25.6-37.1) H 09/17/18 08:55 - Additional Findings Additional findings: - Constitutional Appears: No Acute Distress - Head Exam Head Exam: ATRAUMATIC, NORMAL INSPECTION - Eye Exam Eye Exam: EOMI - ENT Exam ENT Exam: Mucous Membranes Dry - Neck Exam Neck exam: Positive for: Full Rom - Respiratory Exam Respiratory Exam: NORMAL BREATHING PATTERN. absent: Rhonchi, Wheezes - Cardiovascular Exam Cardiovascular Exam: Bradycardia, +S1, +S2 - GI/Abdominal Exam GI & Abdominal Exam: Normal Bowel Sounds, Soft. absent: Tenderness - Extremities Exam Extremities exam: Positive for: full ROM, normal inspection. 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 PLAN: --INR 3.0-on therapeutic range. --Pt is medically stable to be transferred to psych unit, --will re-initiate coumadin therapy at 5mg daily and will f/u INR level closely. --S/P vitamin K administration. --Pt confirmed this was a suicidal attempt. Will transfer to psych unit once medically cleared. --Psychiatry on board, Dr Vigil. --Continue management as ordered. Case discussed with Dr Arreaga who agrees with the above AMEE Cain PGY-2 <Asael Arreaga - Last Filed: 09/20/18 06:50> Objective - Vital Signs/Intake and Output Vital Signs (last 24 hours): Temp Pulse Resp BP Pulse Ox 98.1 F 105 H 19 126/83 100 09/19/18 13:00 09/19/18 13:00 09/19/18 13:00 09/19/18 13:00 09/19/18 13:00 - Labs Labs: 09/17/18 04:30 09/17/18 04:30 PT 34.1 Seconds (9.8-13.1) H D 09/19/18 04:20 INR 3.0 09/19/18 04:20 APTT 46.1 Seconds (25.6-37.1) H 09/17/18 08:55 Assessment and Plan - Assessment and Plan (Free Text) Assessment: Patient was personally seen and examined by me in rounds with residents. Available labs and diagnostic data reviewed. Case, Patient's condition and management plan discussed with residents in rounds. Agree with resident's progress note. Plan: As ordered.
[2018-09-19 15:22] VITALS: BP 126/83; PULSE 105; RESP 19; TEMP 98.1
--- NOTE | 2018-09-19 20:29 | CARD ---
APPROVED REPORT Date of service: 09/19/2018 EKG Measurement Heart [id number] <Conclusion> Sinus tachycardia Possible Left atrial enlargement ST & T wave abnormality, consider inferior ischemia Abnormal ECG
[2018-09-21] MEDS ORDERED: TESTOSTERONE CYPIONATE IM SCH (09:00)
== END 2018-09-19 15:20 | DRG 812 ==
LOC: H.ER 12:13 → H.ERHOLD 18:03 → H.ICU/CCU 09-17 05:20 → OBSVTOIN 09-17 15:01 → H.TEL 09-17 17:02
PROVIDERS: ADMIT Internal Medicine; ATTEND Internal Medicine
DX: T45.512A Poisoning by anticoagulants, intentional self-harm, initial encounter (principal); F33.2 Major depressive disorder, recurrent severe without psychotic features; D68.59 Other primary thrombophilia; F14.10 Cocaine abuse, uncomplicated; F10.10 Alcohol abuse, uncomplicated; F41.9 Anxiety disorder, unspecified; F64.9 Gender identity disorder, unspecified; J45.909 Unspecified asthma, uncomplicated; Z23 Encounter for immunization; Z79.01 Long term (current) use of anticoagulants; Z86.711 Personal history of pulmonary embolism; Z86.718 Personal history of other venous thrombosis and embolism

== ENCOUNTER 2018-11-11 17:57 | Inpatient (IN) | payer MEDICAID ==
[2018-11-11 17:57] VITALS: BMI 46.3
--- NOTE | 2018-11-11 19:26 | ED PDOC ---
HPI: General Adult Time Seen by Provider: 11/11/18 18:57 Chief Complaint (Nursing): GI Problem History Per: Patient Additional Complaint(s): Pt. states yesterday she developed mild b/l lower abdominal pain associated with 1 episode of vomiting with bright red blood. States she had another episode of "spitting up blood" today but blood contents were considerably less. Also reports abdominal pain resolved after vomiting and has not returned. Of note, pt. takes Coumadin daily due to protein C&S deficiency. Also reports 2 weeks ago her Coumadin dose was increased from 5mg daily to 8mg daily by her PMD, Dr. Lux. Last BM was 2 days ago and was normal. Denies weakness, chest pain, SOB, diarrhea, dysuria, hematuria, weakness, palpitations, melena, hematochezia, BRBPR. Past Medical History Reviewed: Historical Data, Nursing Documentation, Vital Signs Vital Signs: Last Vital Signs Temp 98.4 F 11/11/18 18:09 Pulse 103 H 11/11/18 18:09 Resp 18 11/11/18 18:09 BP 117/80 11/11/18 18:09 Pulse Ox 99 11/11/18 18:09 - Medical History PMH: Anxiety, Asthma, Depression, Deep Vein Thrombosis, Pulmonary Embolism Denies: Anemia, Diabetes, Hepatitis, HIV, HTN, Chronic Kidney Disease, Seizures, Sexually Transmitted Disease - Surgical History Surgical History: Tonsillectomy Other surgeries: double mastectomy - Family History Family History: States: No Known Family Hx - Home Medications Home Medications: Ambulatory Orders Medication Instructions Recorded RX: Testosterone Cypionate 0.5 ml IM SUN 09/16/18 [Depo-Testosterone Inj] RX: Warfarin [Coumadin] 7.5 mg PO DAILY 09/16/18 RX: ARIPiprazole [Abilify] 10 mg PO DAILY 30 Days #30 tab 09/25/18 RX: Prazosin HCl [Minipress] 3 mg PO HS 30 Days #90 cap 09/25/18 RX: metFORMIN [glucOPHAGE] 500 mg PO BIDWM tab 09/25/18 RX: traZODone [Desyrel] 100 mg PO HS 30 Days #30 tab 09/25/18 - Allergies Allergies/Adverse Reactions: Allergies Allergy/AdvReac Type Severity Reaction Status Date / Time fentanyl Allergy SHORTNESS Verified 09/16/18 12:41 OF BREATH sulfamethoxazole Allergy SHORTNESS Verified 09/16/18 12:41 [From Bactrim] OF BREATH trimethoprim [From Bactrim] Allergy SHORTNESS Verified 09/16/18 12:41 OF BREATH acetaminophen [From Percocet] AdvReac VOMITING Verified 09/16/18 12:41 oxycodone [From Percocet] AdvReac VOMITING Verified 09/16/18 12:41 Review of Systems ROS Statement: Except As Marked, All Systems Reviewed And Found Negative Gastrointestinal: Positive for: Hematemesis Physical Exam - Physical Exam Appears: Positive for: Well, Non-toxic, No Acute Distress Skin: Positive for: Normal Color, Warm. Negative for: Rash Eye Exam: Positive for: Normal appearance Cardiovascular/Chest: Positive for: Regular Rate, Rhythm. Negative for: Tachycardia Respiratory: Positive for: Normal Breath Sounds Gastrointestinal/Abdominal: Positive for: Normal Exam, Soft. Negative for: Tenderness Neurologic/Psych: Positive for: Alert, Oriented (x3) - ECG O2 Sat by Pulse Oximetry: 99 - Progress ED Course And Treament: Labs, protonix 80mg IV ordered. Pt. refused rectal exam and prefers to wait for HgB result. Disposition - Clinical Impression Clinical Impression: Hematemesis - Patient ED Disposition Is Patient to be Admitted: Transfer of Care (Signed out to Delfin WHARTON pending labs, re-evaluation, and disposition.) - Disposition Disposition Time: 20:00 Condition: STABLE Forms: [employer] (Salvadorean)
[2018-11-11 20:18] LABS: BASO % 0.4 % (0.0-2.0); EOS # 0.1 K/uL (0.0-0.7); EOS % 1.6 % (0.0-4.0); HEMOGLOBIN 12.7 g/dL (12.0-18.0); LYMPH # 2.6 K/uL (1.0-4.3); LYMPH % 34.4 % (20.0-40.0); MEAN CORPUSCULAR HEMOGLOBIN 26.1 pg (27.0-31.0); MEAN CORPUSCULAR HGB CONC 31.8 g/dL (33.0-37.0); MEAN PLATELET VOLUME 7.9 fl (7.2-11.7); MONO # 0.5 K/uL (0.0-0.8); MONO % 6.2 % (0.0-10.0); NEUT # 4.3 K/uL (1.8-7.0); NEUT % 57.4 % (50.0-75.0); NRBC % 0.3 % (0.0-0.0); RBC 4.86 Mil/uL (4.40-5.90); RED CELL DISTRIBUTION WIDTH 15.6 % (11.5-14.5); WHITE BLOOD COUNT 7.5 K/uL (4.8-10.8)
[2018-11-11 20:28] LABS: SQUAMOUS EPITHIAL 3 /hpf (0-5); URINE BACTERIA RARE (<OCC); URINE BILIRUBIN NEGATIVE (NEGATIVE); URINE BLOOD NEGATIVE (NEGATIVE); URINE CLARITY CLOUDY (Clear); URINE COLOR YELLOW (YELLOW); URINE GLUCOSE (UA) NEG (NEGATIVE); URINE LEUKOCYTE ESTERASE MOD Leu/uL (Negative); URINE PROTEIN 30 mg/dL (NEGATIVE)
[2018-11-11 20:31] LABS: ALB/GLOB RATIO 1.2 (1.0-2.1); ALBUMIN 4.3 g/dL (3.5-5.0); ALT/SGPT 28 U/L (21-72); AST/SGOT 21 U/L (17-59); BLOOD UREA NITROGEN 7 mg/dl (9-20); CALCIUM 9.6 mg/dL (8.4-10.2); GFR NON-AFRICAN AMERICAN > 60
--- NOTE | 2018-11-11 20:31 | ED PDOC ---
- Laboratory Results Result Diagrams: 11/12/18 07:17 11/12/18 07:17 - ECG O2 Sat by Pulse Oximetry: 99 Medical Decision Making Medical Decision Making: Patient endorsed to me by SHIVAM Daly pending lab results 23:30: INR 11, HgB 12.7, ordered for Vitamin K 10mg IM x [address] Larios to Obs/tele who asked for orthostatics and CT abd/pelvis to r/o bleed. Time: 001 CT Abd FINDINGS: LUNG BASES: The lung bases appear clear. No pleural effusions are seen. LIVER: Unremarkable. GALLBLADDER AND BILE DUCTS: The gallbladder appears within normal limits. No radioopaque gallstones are seen. No biliary ductal dilatation is evident. PANCREAS: Unremarkable. SPLEEN: The spleen is mildly enlarged measuring 13.5 cm. ADRENAL GLANDS: Unremarkable. KIDNEYS, URETERS, AND BLADDER: The kidneys appear within normal limits. There is no hydronephrosis or hydroureter. No urinary calculi are seen. STOMACH AND BOWEL: Thick walled fluid filled duodenum and loops of jejunum compatible with enteritis. Infectious and inflammatory etiologies are considered. APPENDIX: No evidence of acute appendicitis on CT examination. PERITONEUM: No free fluid. No free air. LYMPH NODES: No lymphadenopathy is evident. REPRODUCTIVE: Unremarkable as visualized. VASCULATURE: No evidence of abdominal aortic aneurysm. BONES: No aggressive appearing osseous lesion. No acute osseous pathology evident. MISCELLANEOUS: IVC filter is in place. IMPRESSION: 1. Enteritis as above. Infectious and inflammatory etiologies are considered. 2. The spleen is mildly enlarged. Orthostatics 107/52 lying, 119/76 sitting; 84/[address] Larios, call ICU consult. Spoke with Dr. Markham who will come evaluate patient. 00:56: Seen by ICU consult, Dr. Markham who feels that patient is not currently a candidate for ICU and would recommend further hydration. Additional 1L Normal saline bolus ordered. Disposition Discussed With : Nigel Larios Counseled Patient/Family Regarding: Studies Performed, Diagnosis - Clinical Impression Clinical Impression: Hematemesis - POA Present On Arrival: None - Disposition Disposition: Admitted as In-Patient Disposition Time: 22:52 Condition: STABLE
[2018-11-11 22:19] LABS: PARTIAL THROMBOPLASTIN TIME 45.8 Seconds (25.6-37.1)
[2018-11-11 22:27] LABS: INR 11.1
[2018-11-11] MEDS ORDERED: Phytonadione 10 mg/ml Inj (Adult) IM ONE (22:35)
[2018-11-11] MEDS ORDERED: Iohexol 300 100 ML IJ ONE (23:06)
[2018-11-11] MEDS ORDERED: Sodium Chloride 0.9% 50 ML IV ONE (23:06)
[2018-11-12] MEDS ORDERED: Sodium Chloride 0.9% 1,000 ML IV STA (00:15)
--- NOTE | 2018-11-12 00:57 | CP.PCM.CON ---
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 Abdominal pain resolved after vomiting.The patient referred that the Coumadin was changed from 5mg daily to 8mg daily with no INR done for over a week. No Melena, SOB nor Chest pain. In the ED Blood Pressure Lyin/52mmHg Sittin/76mmHg? 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 absent: Blurred Vision, Diplopia Ears: absent: Decreased Hearing, Tinnitus Nose/Mouth/Throat: absent: Epistaxis, Sinus Pain, Sinus Pressure - Cardiovascular Cardiovascular: absent: Chest Pain, Dyspnea, Edema - Respiratory Respiratory: absent: Cough, Dyspnea, Wheezing - Gastrointestinal Gastrointestinal: Abdominal Pain, Hematemesis, Vomiting. absent: Melena, Nausea - Genitourinary Genitourinary: absent: Dysuria, Flank Pain, Urinary Frequency - Musculoskeletal Musculoskeletal: absent: Arthralgias, Back Pain - Integumentary Integumentary: absent: Pruritus, Rash, Skin Ulcer, Sores, Swelling - Neurological Neurological: absent: Confusion, Dizziness, Focal Weakness, Weakness - Psychiatric Psychiatric: Anxiety, Depression. absent: Panic Attacks - Endocrine Endocrine: absent: Palpitations, Polydipsia, Polyphagia, Polyuria - Hematologic/Lymphatic Additional comments: Patient on Coumadin Past Patient History - Past Medical History & Family History Past Medical History?: Yes - Past Social History Smoking Status: Never Smoked Chewing Tobacco Use: No Cigar Use: No Alcohol: Occasional Drugs: Denies, Inhalants Home Situation {Lives}: Alone - CARDIAC Hx Hypertension: No - PULMONARY Hx Asthma: Yes Hx Pulmonary Embolism: Yes - NEUROLOGICAL Hx Seizures: No - HEENT Hx HEENT Problems: No - RENAL Hx Chronic Kidney Disease: No - ENDOCRINE/METABOLIC Hx Endocrine Disorders: No - HEMATOLOGICAL/ONCOLOGICAL Hx Anemia: No Hx Human Immunodeficiency Virus (HIV): No - INTEGUMENTARY Hx Dermatological Problems: No - MUSCULOSKELETAL/RHEUMATOLOGICAL Hx Musculoskeletal Disorders: No - GASTROINTESTINAL Hx Gastrointestinal Disorders: No - GENITOURINARY/GYNECOLOGICAL Hx Sexually Transmitted Disorders: No - PSYCHIATRIC Hx Anxiety: Yes Hx Depression: Yes - SURGICAL HISTORY Hx Mastectomy: Yes (Double) Hx Tonsillectomy: Yes Other/Comment: IVC Filter placement. Right ACL repair - ANESTHESIA Hx Anesthesia: Yes Hx Anesthesia Reactions: Yes (Fentanyl (hives)) Hx Malignant Hyperthermia: No Meds Allergies/Adverse Reactions: Allergies Allergy/AdvReac Type Severity Reaction Status Date / Time fentanyl Allergy SHORTNESS Verified 11/11/18 23:43 OF BREATH sulfamethoxazole Allergy SHORTNESS Verified 11/11/18 23:43 [From Bactrim] OF BREATH trimethoprim [From Bactrim] Allergy SHORTNESS Verified 11/11/18 23:43 OF BREATH acetaminophen [From Percocet] AdvReac VOMITING Verified 11/11/18 23:43 oxycodone [From Percocet] AdvReac VOMITING Verified 11/11/18 23:43 - Medications Medications: Current Medications Sodium Chloride (Sodium Chloride 0.9%) 1,000 mls @ 1,000 mls/hr IV .Q1H STA Stop: 11/12/18 01:14 Physical Exam - Constitutional Appears: No Acute Distress - Head Exam Head Exam: ATRAUMATIC, NORMAL INSPECTION, NORMOCEPHALIC - Eye Exam Eye Exam: EOMI, Normal appearance Pupil Exam: NORMAL ACCOMODATION, PERRL - ENT Exam ENT Exam: Mucous Membranes Moist, Normal Exam - Neck Exam Neck exam: Positive for: Full Rom, Normal Inspection. Negative for: Tenderness - Respiratory Exam Respiratory Exam: Clear to Auscultation Bilateral. absent: Rales, Rhonchi, Wheezes - Cardiovascular Exam Cardiovascular Exam: REGULAR RHYTHM, RRR, +S1, +S2 - GI/Abdominal Exam GI & Abdominal Exam: Normal Bowel Sounds, Soft. absent: Organomegaly Additional comments: Mild diffuse abdominal tenderness, no guarding nor rebound. - Rectal Exam Rectal Exam: Deferred - Extremities Exam Extremities exam: Positive for: normal inspection - Back Exam Back exam: NORMAL INSPECTION. absent: CVA tenderness (L), CVA tenderness (R) - Neurological Exam Neurological exam: Alert, CN II-XII Intact, Oriented x3, Reflexes Normal - Psychiatric Exam Psychiatric exam: Normal Affect, Normal Mood - Skin Skin Exam: Dry, Normal Color, Warm Results - Vital Signs Recent Vital Signs: Last Vital Signs Temp 98.6 F 11/11/18 23:29 Pulse 76 11/11/18 23:29 Resp 19 11/11/18 23:29 BP 117/80 11/11/18 18:09 Pulse Ox 99 11/12/18 00:20 - Labs Result Diagrams: 11/12/18 07:17 11/12/18 07:17 Labs: Laboratory Results - last 24 hr 11/11/18 11/11/18 11/11/18 20:01 20:01 20:01 WBC 7.5 RBC 4.86 Hgb 12.7 Hct 39.8 MCV 82.0 D MCH 26.1 L MCHC 31.8 L RDW 15.6 H Plt Count 253 MPV 7.9 Neut % (Auto) 57.4 Lymph % (Auto) 34.4 [place] % (Auto) 6.2 Eos % (Auto) 1.6 Baso % (Auto) 0.4 Neut # (Auto) 4.3 Lymph # (Auto) 2.6 [place] # (Auto) 0.5 Eos # (Auto) 0.1 Baso # (Auto) 0.0 PT Cancelled INR Cancelled APTT Cancelled Sodium 142 Potassium 3.9 Chloride 106 Carbon Dioxide 25 Anion Gap 15 BUN 7 L Creatinine 1.2 Est GFR ( Amer) > 60 Est GFR (Non-Af Amer) > 60 Random Glucose 83 Calcium 9.6 Total Bilirubin 0.1 L AST 21 ALT 28 Alkaline Phosphatase 80 Total Protein 8.0 Albumin 4.3 Globulin 3.7 Albumin/Globulin Ratio 1.2 Urine Color Urine Clarity Urine pH Ur Specific [place] Urine Protein Urine Glucose (UA) Urine Ketones Urine Blood Urine Nitrate Urine Bilirubin Urine Urobilinogen Ur Leukocyte Esterase Urine RBC (Auto) Urine Microscopic WBC Ur Squamous Epith Cells Urine Bacteria Hyaline Casts Blood Type Antibody Screen BBK History Checked 11/11/18 11/11/18 11/11/18 20:01 20:01 22:12 WBC RBC Hgb Hct MCV MCH MCHC RDW Plt Count MPV Neut % (Auto) Lymph % (Auto) [place] % (Auto) Eos % (Auto) Baso % (Auto) Neut # (Auto) Lymph # (Auto) [place] # (Auto) Eos # (Auto) Baso # (Auto) PT 126.0 H* INR 11.1 APTT 45.8 H Sodium Potassium Chloride Carbon Dioxide Anion Gap BUN Creatinine Est GFR ( Amer) Est GFR (Non-Af Amer) Random Glucose Calcium Total Bilirubin AST ALT Alkaline Phosphatase Total Protein Albumin Globulin Albumin/Globulin Ratio Urine Color Yellow Urine Clarity Cloudy Urine pH 5.0 Ur Specific [place] 1.026 Urine Protein 30 Urine Glucose (UA) Neg Urine Ketones Trace Urine Blood Negative Urine Nitrate Negative Urine Bilirubin Negative Urine Urobilinogen 2.0 Ur Leukocyte Esterase Mod Urine RBC (Auto) 3 Urine Microscopic WBC 15 H Ur Squamous Epith Cells 3 Urine Bacteria Rare Hyaline Casts 6-10 H Blood Type A POSITIVE Antibody Screen Negative BBK History Checked Patient has bt - Imaging and Cardiology CT scan - abdomen Status: Report reviewed by me Additional comment: Time: 11 CT Abd FINDINGS: LUNG BASES: The lung bases appear clear. No pleural effusions are seen. LIVER: Unremarkable. GALLBLADDER AND BILE DUCTS: The gallbladder appears within normal limits. No radioopaque gallstones are seen. No biliary ductal dilatation is evident. PANCREAS: Unremarkable. SPLEEN: The spleen is mildly enlarged measuring 13.5 cm. ADRENAL GLANDS: Unremarkable. KIDNEYS, URETERS, AND BLADDER: The kidneys appear within normal limits. There is no hydronephrosis or hydroureter. No urinary calculi are seen. STOMACH AND BOWEL: Thick walled fluid filled duodenum and loops of jejunum compatible with enteritis. Infectious and inflammatory etiologies are considered. APPENDIX: No evidence of acute appendicitis on CT examination. PERITONEUM: No free fluid. No free air. LYMPH NODES: No lymphadenopathy is evident. REPRODUCTIVE: Unremarkable as visualized. VASCULATURE: No evidence of abdominal aortic aneurysm. BONES: No aggressive appearing osseous lesion. No acute osseous pathology evident. MISCELLANEOUS: IVC filter is in place. IMPRESSION: 1. Enteritis as above. Infectious and inflammatory etiologies are considered. 2. The spleen is mildly enlarged. 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 In the ED Blood Pressure Lyin/52mmHg Sittin/76mmHg? Standin/59 mmHg #. Coumadin Toxicity - Hold Coumadin - Vitamin K - FFP if Further sign of bleeding - Serial INR #. GI Bleed. Probably related to the Coumadin Toxicity - Treat Coumadin Toxicity - Serial Hb #. Orthostatic Hypotension. Probably secondary to Trazodone combined with Minipress - Rehydrate patient - If Orthostatic Hypotension continues, then Trazodone would have to be changed #. Protein S Deficiency - Coumadin with maintenance of INR 2-3 This patient does not need ICU management for the Orthostatic Hypotension. This could be treated with IV Fluid rehydration and Changing the Trazodone and Minipress to other medication. Taqueria Markham MD - Date & Time Date: 11/12/18 Time: 00:56
[2018-11-12] MEDS ORDERED: Phytonadione 10 mg/ml Inj (Adult) ONE (02:15)
[2018-11-12 07:36] LABS: HEMOGLOBIN 11.6 g/dL (12.0-18.0); MEAN CELL VOLUME 82.3 fl (80.0-94.0); MEAN CORPUSCULAR HEMOGLOBIN 25.7 pg (27.0-31.0); MEAN CORPUSCULAR HGB CONC 31.2 g/dL (33.0-37.0); RBC 4.53 Mil/uL (4.40-5.90); RED CELL DISTRIBUTION WIDTH 15.8 % (11.5-14.5); WHITE BLOOD COUNT 6.2 K/uL (4.8-10.8)
[2018-11-12 07:39] LABS: ALB/GLOB RATIO 1.1 (1.0-2.1); ALBUMIN 3.2 g/dL (3.5-5.0); ALT/SGPT 27 U/L (21-72); AST/SGOT 23 U/L (17-59); BLOOD UREA NITROGEN 8 mg/dl (9-20); CALCIUM 8.1 mg/dL (8.4-10.2); GFR NON-AFRICAN AMERICAN > 60
[2018-11-12 07:41] LABS: PARTIAL THROMBOPLASTIN TIME 50.9 Seconds (25.6-37.1)
[2018-11-12 08:08] LABS: INR 14.7
[2018-11-12] MEDS ORDERED: Phytonadione 10 mg/ml Inj (Adult) SC ONE (09:59)
--- NOTE | 2018-11-12 14:56 | CT ---
Date of service: 11/11/2018 PROCEDURE: CT Abdomen and Pelvis with contrast HISTORY: abd pain gi bleed COMPARISON: 09/04/2017. TECHNIQUE: CT scan of the abdomen and pelvis was performed after administration of intravenous contrast. Oral contrast was not administered. Coronal and sagittal reformatted images were obtained. Contrast dose: Radiation dose: Total exam DLP = 915.35 mGy-cm. This CT exam was performed using one or more of the following dose reduction techniques: Automated exposure control, adjustment of the mA and/or kV according to patient size, and/or use of iterative reconstruction technique. FINDINGS: LOWER THORAX: The visualized lungs are clear. There is minimal subsegmental atelectasis in the right lung base. LIVER: Normal in size with homogeneous enhancement. No gross lesion or ductal dilatation. GALLBLADDER AND BILE DUCTS: Well distended. No calcified gallstones, wall thickening or pericholecystic fluid. PANCREAS: Normal in size with homogeneous enhancement. No gross lesion or ductal dilatation. SPLEEN: Mild splenomegaly. Homogeneous enhancement. ADRENALS: No discrete nodule. KIDNEYS AND URETERS: Normal in size with homogeneous enhancement. There is cortical scarring in the lower pole of the left kidney. A small low attenuation area in the upper pole of the left kidney is too small to characterize by CT criteria. No hydronephrosis. No solid mass. VASCULATURE: No aortic aneurysm. No aortic atherosclerotic calcifications present. An infrarenal IVC filter remains in place. BOWEL: Evaluation of the bowel is limited in the absence of oral contrast. There is ingested material in the stomach which is mildly distended. There is mild prominence of fluid-filled terminal ileum. There is moderate amount of stool in the ascending colon. No bowel wall thickening or obstruction. The small bowel loops are normal in caliber. The colon is grossly normal in appearance. No bowel wall thickening or obstruction. APPENDIX: Normal appendix. PERITONEUM: No free fluid. No free air. LYMPH NODES: No enlarged lymph nodes. BLADDER: Well distended and normal in appearance. REPRODUCTIVE: Anatomic structure identified in the right pelvis has configuration of the uterus. BONES: No acute fracture. Within normal limits for the patient's age. OTHER FINDINGS: None. IMPRESSION: No acute abdominal or pelvic abnormality. An anatomic structure in the right hemipelvis appears to be uterus. The patient has female sex organs. Please correlate with genotype. A preliminary report was provided by [employer].
[2018-11-12] MEDS: Pantoprazole 40 mg EC Tab PO SCH (16:52)
--- NOTE | 2018-11-12 21:06 | CP.PCM.CON ---
Past Patient History - Past Medical History & Family History Past Medical History?: Yes - Past Social History Smoking Status: Never Smoked - CARDIAC Hx Cardiac Disorders: No Hx Hypertension: No - PULMONARY Hx Respiratory Disorders: Yes Hx Asthma: Yes Hx Pulmonary Embolism: Yes - NEUROLOGICAL Hx Neurological Disorder: No Hx Seizures: No - HEENT Hx HEENT Problems: No - RENAL Hx Chronic Kidney Disease: No - ENDOCRINE/METABOLIC Hx Endocrine Disorders: No - HEMATOLOGICAL/ONCOLOGICAL Hx Blood Disorders: Yes Hx AIDS: No Hx Human Immunodeficiency Virus (HIV): No Other/Comment: dvt - INTEGUMENTARY Hx Dermatological Problems: No - MUSCULOSKELETAL/RHEUMATOLOGICAL Hx Musculoskeletal Disorders: No Hx Falls: No - GASTROINTESTINAL Hx Gastrointestinal Disorders: No - GENITOURINARY/GYNECOLOGICAL Hx Genitourinary Disorders: No Hx Sexually Transmitted Disorders: No - PSYCHIATRIC Hx Psychophysiologic Disorder: Yes Hx Anxiety: Yes Hx Depression: Yes Hx Substance Use: No - SURGICAL HISTORY Hx Mastectomy: Yes Hx Tonsillectomy: Yes - ANESTHESIA Hx Anesthesia: Yes Hx Anesthesia Reactions: Yes (Fentanyl (hives)) Hx Malignant Hyperthermia: No Meds Allergies/Adverse Reactions: Allergies Allergy/AdvReac Type Severity Reaction Status Date / Time fentanyl Allergy SHORTNESS Verified 11/11/18 23:43 OF BREATH sulfamethoxazole Allergy SHORTNESS Verified 11/11/18 23:43 [From Bactrim] OF BREATH trimethoprim [From Bactrim] Allergy SHORTNESS Verified 11/11/18 23:43 OF BREATH acetaminophen [From Percocet] AdvReac VOMITING Verified 11/11/18 23:43 oxycodone [From Percocet] AdvReac VOMITING Verified 11/11/18 23:43 - Medications Medications: Current Medications Aripiprazole (Abilify) 10 mg PO DAILY [facility] Last Admin: 11/12/18 09:24 Dose: 10 mg Pantoprazole Sodium (Protonix Ec Tab) 40 mg PO DAILY [facility] Last Admin: 11/12/18 16:52 Dose: 40 mg Prazosin HCl (Minipress) 3 mg PO HS [facility] Trazodone HCl (Desyrel) 100 mg PO HS [facility] Results - Vital Signs Recent Vital Signs: Last Vital Signs Temp 98.1 F 11/12/18 20:14 Pulse 68 11/12/18 20:14 Resp 16 11/12/18 20:14 BP 106/75 11/12/18 20:14 Pulse Ox 99 11/12/18 20:14 - Labs Result Diagrams: 11/12/18 07:17 11/12/18 07:17 Labs: Laboratory Results - last 24 hr 11/11/18 11/11/18 11/12/18 20:01 22:12 07:17 WBC 6.2 RBC 4.53 Hgb 11.6 L Hct 37.3 MCV 82.3 MCH 25.7 L MCHC 31.2 L RDW 15.8 H Plt Count 220 PT 126.0 H* INR 11.1 APTT 45.8 H Sodium Potassium Chloride Carbon Dioxide Anion Gap BUN Creatinine Est GFR ( Amer) Est GFR (Non-Af Amer) Random Glucose Calcium Total Bilirubin AST ALT Alkaline Phosphatase Total Protein Albumin Globulin Albumin/Globulin Ratio Blood Type A POSITIVE Antibody Screen Negative BBK History Checked Patient has bt 11/12/18 11/12/18 07:17 07:17 WBC RBC Hgb Hct MCV MCH MCHC RDW Plt Count PT 167.0 H* D INR 14.7 APTT 50.9 H Sodium 140 Potassium 3.7 Chloride 107 Carbon Dioxide 26 Anion Gap 11 BUN 8 L Creatinine 1.2 Est GFR ( Amer) > 60 Est GFR (Non-Af Amer) > 60 Random Glucose 129 H Calcium 8.1 L Total Bilirubin < 0.1 L AST 23 ALT 27 Alkaline Phosphatase 61 Total Protein 6.3 Albumin 3.2 L D Globulin 3.0 Albumin/Globulin Ratio 1.1 Blood Type Antibody Screen BBK History Checked
[2018-11-12 22:53] LABS: INR 9.1; PARTIAL THROMBOPLASTIN TIME 53.2 Seconds (25.6-37.1); PROTHROMBIN TIME 103.5 Seconds (9.8-13.1)
[2018-11-12] MEDS ORDERED: Phytonadione 10 mg/ml Inj (Adult) SC STA (23:21)
--- NOTE | 2018-11-12 23:51 | CP.PCM.HP ---
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 Abdominal pain resolved after vomiting.The patient stated that the Coumadin was changed from 5mg daily to 8mg daily with no INR done for over a week. Patient run out of 1 mg tabs, and then took 2 tabs of 5 mg tabs. In the ER, patient was found to have high INR 11.1. Patient was given Vitamin K 10 mg PO. Today INR worsened to 14.1. No Melena, SOB nor Chest pain. Present on Admission - Present on Admission Any Indicators Present on Admission: No Review of Systems - Review of Systems All systems: reviewed and no additional remarkable complaints except Review of Systems: as per HPI Past Patient History - Past Medical History & Family History Past Medical History?: Yes Past Family History: Reviewed and not pertinent - Past Social History Smoking Status: Never Smoked Chewing Tobacco Use: No Cigar Use: No Alcohol: Occasional Drugs: Denies, Inhalants Home Situation {Lives}: Alone - CARDIAC Hx Hypertension: No - PULMONARY Hx Asthma: Yes Hx Pulmonary Embolism: Yes - NEUROLOGICAL Hx Seizures: No - HEENT Hx HEENT Problems: No - RENAL Hx Chronic Kidney Disease: No - ENDOCRINE/METABOLIC Hx Endocrine Disorders: No - HEMATOLOGICAL/ONCOLOGICAL Hx Anemia: No Hx Human Immunodeficiency Virus (HIV): No - INTEGUMENTARY Hx Dermatological Problems: No - MUSCULOSKELETAL/RHEUMATOLOGICAL Hx Musculoskeletal Disorders: No - GASTROINTESTINAL Hx Gastrointestinal Disorders: No - GENITOURINARY/GYNECOLOGICAL Hx Sexually Transmitted Disorders: No - PSYCHIATRIC Hx Anxiety: Yes Hx Depression: Yes - SURGICAL HISTORY Hx Mastectomy: Yes (Double) Hx Tonsillectomy: Yes Other/Comment: IVC Filter placement. Right ACL repair - ANESTHESIA Hx Anesthesia: Yes Hx Anesthesia Reactions: Yes (Fentanyl (hives)) Hx Malignant Hyperthermia: No Meds Home Medications: Home Medication List Medication Instructions Recorded Confirmed Type Amoxicillin/Clavulanate [Augmentin 1 tab PO Q12 tab 11/15/18 Rx 500 MG-125 MG Tab] Magnesium Oxide [Mag-Ox] 400 mg PO BID tab 11/15/18 Rx Pantoprazole [Protonix EC Tab] 40 mg PO DAILY ect 11/15/18 Rx Sucralfate [Carafate Oral Susp] 1 gm PO QID udc 11/15/18 Rx Allergies/Adverse Reactions: Allergies Allergy/AdvReac Type Severity Reaction Status Date / Time fentanyl Allergy SHORTNESS Verified 11/11/18 23:43 OF BREATH sulfamethoxazole Allergy SHORTNESS Verified 11/11/18 23:43 [From Bactrim] OF BREATH trimethoprim [From Bactrim] Allergy SHORTNESS Verified 11/11/18 23:43 OF BREATH acetaminophen [From Percocet] AdvReac VOMITING Verified 11/11/18 23:43 oxycodone [From Percocet] AdvReac VOMITING Verified 11/11/18 23:43 Physical Exam - Constitutional Appears: Well, No Acute Distress - Head Exam Head Exam: ATRAUMATIC, NORMAL INSPECTION, NORMOCEPHALIC - Eye Exam Eye Exam: EOMI, Normal appearance, PERRL Pupil Exam: NORMAL ACCOMODATION, PERRL - ENT Exam ENT Exam: Mucous Membranes Moist, Normal Exam - Neck Exam Neck exam: Positive for: Normal Inspection - Respiratory Exam Respiratory Exam: Clear to Auscultation Bilateral, NORMAL BREATHING PATTERN - Cardiovascular Exam Cardiovascular Exam: REGULAR RHYTHM - GI/Abdominal Exam GI & Abdominal Exam: Normal Bowel Sounds, Soft. absent: Tenderness - Rectal Exam Rectal Exam: NORMAL INSPECTION - Exam Exam: Circumcision, NORMAL INSPECTION External exam: NORMAL EXTERNAL EXAM Speculum exam: NORMAL SPECULUM EXAM Bimanual exam: NORMAL BIMANUAL EXAM - Extremities Exam Extremities exam: Positive for: normal inspection - Back Exam Back exam: NORMAL INSPECTION - Neurological Exam Neurological exam: Alert, CN II-XII Intact, Normal Gait, Oriented x3, Reflexes Normal - Psychiatric Exam Psychiatric exam: Normal Affect, Normal Mood - Skin Skin Exam: Dry, Intact, Normal Color, Warm Results - Vital Signs Recent Vital Signs: Last Vital Signs Temp 98.1 F 11/12/18 20:14 Pulse 68 11/12/18 20:14 Resp 16 11/12/18 20:14 BP 106/75 11/12/18 20:14 Pulse Ox 99 11/12/18 20:14 - Labs Result Diagrams: 11/14/18 10:13 11/14/18 10:13 Labs: Laboratory Results - last 24 hr 11/12/18 11/12/18 11/12/18 07:17 07:17 07:17 WBC 6.2 RBC 4.53 Hgb 11.6 L Hct 37.3 MCV 82.3 MCH 25.7 L MCHC 31.2 L RDW 15.8 H Plt Count 220 PT 167.0 H* D INR 14.7 APTT 50.9 H Sodium 140 Potassium 3.7 Chloride 107 Carbon Dioxide 26 Anion Gap 11 BUN 8 L Creatinine 1.2 Est GFR ( Amer) > 60 Est GFR (Non-Af Amer) > 60 Random Glucose 129 H Calcium 8.1 L Total Bilirubin < 0.1 L AST 23 ALT 27 Alkaline Phosphatase 61 Total Protein 6.3 Albumin 3.2 L D Globulin 3.0 Albumin/Globulin Ratio 1.1 11/12/18 19:58 WBC RBC Hgb Hct MCV MCH MCHC RDW Plt Count PT 103.5 H* D INR 9.1 APTT 53.2 H Sodium Potassium Chloride Carbon Dioxide Anion Gap BUN Creatinine Est GFR ( Amer) Est GFR (Non-Af Amer) Random Glucose Calcium Total Bilirubin AST ALT Alkaline Phosphatase Total Protein Albumin Globulin Albumin/Globulin Ratio Assessment & Plan (1) Orthostatic hypotension Status: Acute (2) Anemia Status: Acute (3) Coumadin toxicity Status: Acute Priority: High (4) Hematemesis Status: Acute Priority: Medium (5) Protein S deficiency Status: Acute Priority: Medium (6) Pulmonary embolism Status: Acute Priority: Medium (7) Supratherapeutic INR Status: Acute - Assessment and Plan (Free Text) Plan: Monitor Bleed, INR/PT and H/H daily IVF Psych Consult Hematology Consult
[2018-11-13 08:59] LABS: INR 4.6
[2018-11-13 09:07] LABS: PROTHROMBIN TIME 52.7 Seconds (9.8-13.1)
[2018-11-13] MEDS: Pantoprazole 40 mg EC Tab PO SCH (09:08)
[2018-11-13] MEDS ORDERED: Alum-Mag Hydrox-Simethicone Susp (30 mL) PO ONE (10:19)
[2018-11-13 10:24] LABS: HEMOGLOBIN 11.9 g/dL (12.0-18.0); MEAN CORPUSCULAR HEMOGLOBIN 25.5 pg (27.0-31.0); MEAN CORPUSCULAR HGB CONC 31.1 g/dL (33.0-37.0); RBC 4.69 Mil/uL (4.40-5.90); RED CELL DISTRIBUTION WIDTH 15.5 % (11.5-14.5); WHITE BLOOD COUNT 6.2 K/uL (4.8-10.8)
[2018-11-13] MEDS ORDERED: Lactated Ringer's 1,000 ML IV SCH (10:30)
[2018-11-13 10:51] LABS: BLOOD UREA NITROGEN 8 mg/dl (9-20); CALCIUM 8.8 mg/dL (8.4-10.2); GFR NON-AFRICAN AMERICAN > 60
--- NOTE | 2018-11-13 11:20 | CP.PCM.PCO ---
Assessment & Plan - Assessment and Plan (Free Text) Assessment: called by RN for graphics production specialist rythm changes patient seen and examined; report mild chest pressure, intermittent, w/ dizziness EKG stat ordered; ST changes in v4; Ekg compared to previous admission with similar changes Troponin stat, echo pt. reassessed and reports cp relieved; notified; Case d/w and icu division supervisor IVF bolus; carafate and maalox ordered by Trop x3 neg ordered CTA r/o aortic dissection will cont. to f/u
[2018-11-13] MEDS: Sucralfate 1 gm/10 ml Oral Susp UD PO SCH ×3 (14:39→22:28)
--- NOTE | 2018-11-13 21:33 | CON ---
DATE: 11/13/2018 REASON FOR CONSULTATION: Abnormal EKG. HISTORY OF PRESENT ILLNESS: The patient is a 33-year-old male, who is transgender, was diagnosed at age 18 was protein S deficiency after suffering DVT and pulmonary emboli. The patient was on Coumadin therapy, which was recently increased from 5 to 8 mg daily. The patient underwent an IVC filter placement some 4 to 5 years ago, but still continues to have recurrent DVT and pulmonary emboli. The patient presented because of hematemesis as well as hemoptysis and was found to be coagulopathic. Initial INR was 11.1. The patient did receive vitamin K subcutaneously 10 mg and the most recent INR today is 4.6, and the patient did report dark urine, but was unaware of any piter hematuria. The patient had similar scenario a few years ago and required no transfusion at that time. This morning, an EKG was sent to me. EKG revealed a subtle lateral ST elevation, which is unlikely an injury pattern and subsequent EKG did not reveal any injury pattern. At the time of my evaluation, the patient was chest pain free. The patient was unaware of any prior cardiac history. SOCIAL HISTORY: Nonsmoker, nondrinker. PAST MEDICAL HISTORY: The patient is transgender, underwent a surgery, which included bilateral mastectomy. MEDICATIONS: Carafate 1 g p.o. q.i.d., Minipress 3 mg at bedtime, Protonix 40 mg p.o. once a day. PHYSICAL EXAMINATION: GENERAL: The patient is a young middle-aged male, who does not appear to be in any acute distress. VITAL SIGNS: Blood pressure 94/63, heart rate 73, temperature 98.2, and respirations 18. HEENT: Normocephalic. CHEST: Clear. HEART: Heart sounds are regular. EXTREMITIES: Trace leg edema. No calf tenderness. LABORATORY DATA: Hemoglobin and hematocrit 11.9 and 38.4, white count and platelet count are within normal limits. Today's SMA-7 is within normal limits except BUN of 8. One set of troponin this morning is within normal limits. EKG done today at 10 o'clock in the morning revealed sinus rhythm with nonspecific ST or T-wave changes. Abdomen and pelvic CT scan no acute abdomen or pelvic abnormality. Anatomic structure in the right hemipelvis appears to be uterus. The patient has a female sex origin that confirms that the patient is a transgender. Echocardiographic study performed in December this year revealed normal ejection fraction. ASSESSMENT: 1. Atypical chest pain. 2. Iatrogenic coagulopathy. 3. Protein S deficiency. The most recent venous Doppler lower extremity was in September of last year, revealed no evidence of deep venous thrombosis and the most recent ventilation perfusion scan was in December of this year,which revealed low probability for PE, and the most recent chest CT scan was from September of this year, which revealed no CT evidence of pulmonary embolism. RECOMMENDATIONS: Continue current Minipress and oral Protonix as well as Carafate. The patient was a suitable candidate for antiplatelet therapy. I will obtain a chest CT angio to rule out less likely the probability for aortic dissection and also the patient is scheduled for repeat echocardiographic study. Kelvin Valdez MD
--- NOTE | 2018-11-14 00:32 | CP.PCM.PN ---
Subjective - Date & Time of Evaluation Date of Evaluation: 11/13/18 Objective - Vital Signs/Intake and Output Vital Signs (last 24 hours): Temp Pulse Resp BP Pulse Ox 97.6 F 70 18 107/72 97 11/14/18 00:21 11/14/18 00:21 11/14/18 00:21 11/14/18 00:21 11/14/18 00:21 - Medications Medications: Current Medications Acetaminophen (Tylenol 325mg Tab) 650 mg PO Q6 PRN PRN Reason: Pain, Mild (1-3) Last Admin: 11/14/18 00:19 Dose: 650 mg Aripiprazole (Abilify) 10 mg PO DAILY [facility] Last Admin: 11/13/18 09:08 Dose: 10 mg Pantoprazole Sodium (Protonix Ec Tab) 40 mg PO DAILY [facility] Last Admin: 11/13/18 09:08 Dose: 40 mg Prazosin HCl (Minipress) 3 mg PO HS [facility] Last Admin: 11/13/18 22:27 Dose: 3 mg Sucralfate (Carafate Oral Susp) 1 gm PO QID [facility] Last Admin: 11/13/18 22:28 Dose: 1 gm Trazodone HCl (Desyrel) 100 mg PO HS [facility] Last Admin: 11/13/18 22:27 Dose: 100 mg - Labs Labs: 11/13/18 10:18 11/13/18 10:18 PT 52.7 Seconds (9.8-13.1) H* D 11/13/18 08:05 INR 4.6 11/13/18 08:05 APTT 53.2 Seconds (25.6-37.1) H 11/12/18 19:58
--- NOTE | 2018-11-14 01:35 | CARD ---
APPROVED REPORT Date of service: 11/13/2018 EKG Measurement Heart [id number] <Conclusion> Normal sinus rhythm Diffuse ST elevation, possible pericarditis vs early repolarization. Abnormal ECG
--- NOTE | 2018-11-14 01:46 | CARD ---
APPROVED REPORT Date of service: 11/13/2018 EKG Measurement Heart [id number] <Conclusion> Normal sinus rhythm Diffuse ST elevation, possible pericarditis vs early repolarization. Abnormal ECG
--- NOTE | 2018-11-14 01:58 | CARD ---
APPROVED REPORT Date of service: 11/13/2018 EXAM: Two-dimensional and M-mode echocardiogram with Doppler and color Doppler. Other Information Quality : GoodRhythm : NSR INDICATION Abnormal EKG/Arrhythmia 2D DIMENSIONS IVSd1.40 (0.7-1.1cm)LVDd4.44 (3.9-5.9cm) LVOT Diameter2.21 (1.8-2.4cm)PWd1.25 (0.7-1.1cm) IVSs1.60 (0.8-1.2cm)LVDs2.93 (2.5-4.0cm) FS (%) 34.0 %PWs1.53 (0.8-1.2cm) M-Mode DIMENSIONS Left Atrium (MM)4.38 (2.5-4.0cm)IVSd1.06 (0.7-1.1cm) Aortic Root2.81 (2.2-3.7cm)LVDd5.16 (4.0-5.6cm) Aortic Cusp Exc.2.28 (1.5-2.0cm)PWd1.19 (0.7-1.1cm) IVSs1.78 cmFS (%) 35 % LVDs3.34 (2.0-3.8cm)PWs1.78 cm Aortic Valve AoV Peak Cjtqcylm043.2cm/sAoV VTI23.6cmAO Peak GR.6mmHg LVOT Peak Iluszfzt09.8cm/sLVOT VTI17.92cmAO Mean GR.3mmHg GEORGE (VMAX)1.77fp8GDZ (VTI)1.20cm2 Mitral Valve MV E Mlgwwhsc34.8cm/sMV DECEL [id number] A Lctldfue82.2cm/s MV AOW29zlT/A ratio1.4MVA (PHT)3.94cm2 TDI Lateral E' Peak V9.53cm/sMedial E' Peak V8.56cm/sE/Lateral E'8.7 E/Medial E'9.7 LEFT VENTRICLE The left ventricle is normal size. There is mild concentric left ventricular hypertrophy. The left ventricular systolic function is normal. The estimated ejection fraction is 60-65% No regional wall motion abnormalities noted.. The left ventricular diastolic function is normal. No left ventricle thrombus noted on this study. There is no ventricular septal defect visualized. There is no left ventricular aneurysm. There is no mass noted in the left ventricle. RIGHT VENTRICLE The right ventricle is normal size. There is normal right ventricular wall thickness. The right ventricular systolic function is normal. ATRIA The left atrium size is normal. The right atrium size is normal. The interatrial septum is intact with no evidence for an atrial septal defect. AORTIC VALVE The aortic valve is normal in structure. No aortic regurgitation is present. There is no aortic valvular stenosis. There is no aortic valvular vegetation. MITRAL VALVE The mitral valve is normal in structure. There is no evidence of mitral valve prolapse. There is no mitral valve stenosis. There is no mitral valve regurgitation noted. TRICUSPID VALVE The tricuspid valve is normal in structure. There is no tricuspid valve regurgitation noted. There is no tricuspid valve prolapse or vegetation. There is no tricuspid valve stenosis. PULMONIC VALVE The pulmonary valve is normal in structure. There is no pulmonic valvular regurgitation. There is no pulmonic valvular stenosis. GREAT VESSELS The aortic root is normal in size. The ascending aorta is normal in size. The pulmonary artery is normal. The IVC is normal in size and collapses >50% with inspiration. PERICARDIAL EFFUSION There is no pericardial effusion. There is no pleural effusion. <Conclusion> There is mild concentric left ventricular hypertrophy. The estimated ejection fraction is 60-65% The left ventricular diastolic function is normal. The left atrium size is normal. There is no tricuspid valve regurgitation noted.
[2018-11-14 06:56] LABS: HEMOGLOBIN 11.9 g/dL (12.0-18.0); MEAN CELL VOLUME 83.2 fl (80.0-94.0); MEAN CORPUSCULAR HEMOGLOBIN 25.7 pg (27.0-31.0); MEAN CORPUSCULAR HGB CONC 30.9 g/dL (33.0-37.0); RBC 4.63 Mil/uL (4.40-5.90); RED CELL DISTRIBUTION WIDTH 15.3 % (11.5-14.5); WHITE BLOOD COUNT 7.4 K/uL (4.8-10.8)
--- NOTE | 2018-11-14 08:07 | CP.PCM.CON ---
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 Patient reports worsening depression, anxiety, feeling of hopelessness, continued intermittent suicidal ideations, sleep/appetite disturbances. Denies AH/VH. +Cocaine use 1 week ago. A + O x 3. Patient is agreeable to psychiatric admission at this time. PMH: Recurrent Pyelonephritis; protein S deficiency; Multiple PE and DVT; CHRIS; Transgender change(M2F), Asthma PMD: Paras Ross MD PSH: Tonsillectomy; IVC Filter implanted; Right ACL repair; Ureteral Reflux repair; Cystoscopy 05/31/17, Double Mastedtomy SH: Never Smoked; +Alcohol Use; Cocaine use; Live alone; on SSD Allergies: Fentanyl; Bactrim; Oxycodone; Tylenol Impression: 33 yo male w/ h/o Bipolar Disorder, Borderline Personality Disorder, Alcohol and Cocaine Use Disorders, admitted to medicine s/p suicide attempt by overdose on Coumadin. Patient will need inpatient psychiatric admission for treatment and stabilization. -[facility] when patient is medically stable Past Patient History - Past Medical History & Family History Past Medical History?: Yes - Past Social History Smoking Status: Never Smoked Chewing Tobacco Use: No Cigar Use: No Alcohol: Occasional Drugs: Denies, Inhalants Home Situation {Lives}: Alone - CARDIAC Hx Hypertension: No - PULMONARY Hx Asthma: Yes Hx Pulmonary Embolism: Yes - NEUROLOGICAL Hx Seizures: No - HEENT Hx HEENT Problems: No - RENAL Hx Chronic Kidney Disease: No - ENDOCRINE/METABOLIC Hx Endocrine Disorders: No - HEMATOLOGICAL/ONCOLOGICAL Hx Anemia: No Hx Human Immunodeficiency Virus (HIV): No - INTEGUMENTARY Hx Dermatological Problems: No - MUSCULOSKELETAL/RHEUMATOLOGICAL Hx Musculoskeletal Disorders: No - GASTROINTESTINAL Hx Gastrointestinal Disorders: No - GENITOURINARY/GYNECOLOGICAL Hx Sexually Transmitted Disorders: No - PSYCHIATRIC Hx Anxiety: Yes Hx Depression: Yes - SURGICAL HISTORY Hx Mastectomy: Yes (Double) Hx Tonsillectomy: Yes Other/Comment: IVC Filter placement. Right ACL repair - ANESTHESIA Hx Anesthesia: Yes Hx Anesthesia Reactions: Yes (Fentanyl (hives)) Hx Malignant Hyperthermia: No Meds Allergies/Adverse Reactions: Allergies Allergy/AdvReac Type Severity Reaction Status Date / Time fentanyl Allergy SHORTNESS Verified 11/11/18 23:43 OF BREATH sulfamethoxazole Allergy SHORTNESS Verified 11/11/18 23:43 [From Bactrim] OF BREATH trimethoprim [From Bactrim] Allergy SHORTNESS Verified 11/11/18 23:43 OF BREATH acetaminophen [From Percocet] AdvReac VOMITING Verified 11/11/18 23:43 oxycodone [From Percocet] AdvReac VOMITING Verified 11/11/18 23:43 - Medications Medications: Current Medications Acetaminophen (Tylenol 325mg Tab) 650 mg PO Q6 PRN PRN Reason: Pain, Mild (1-3) Last Admin: 11/14/18 06:50 Dose: 650 mg Aripiprazole (Abilify) 10 mg PO DAILY [facility] Last Admin: 11/13/18 09:08 Dose: 10 mg Pantoprazole Sodium (Protonix Ec Tab) 40 mg PO DAILY [facility] Last Admin: 11/13/18 09:08 Dose: 40 mg Prazosin HCl (Minipress) 3 mg PO [facility] Last Admin: 11/13/18 22:27 Dose: 3 mg Sucralfate (Carafate Oral Susp) 1 gm PO QID [facility] Last Admin: 11/13/18 22:28 Dose: 1 gm Trazodone HCl (Desyrel) 100 mg PO HS [facility] Last Admin: 11/13/18 22:27 Dose: 100 mg Results - Vital Signs Recent Vital Signs: Last Vital Signs Temp 97.8 F 11/14/18 05:43 Pulse 77 11/14/18 05:43 Resp 18 11/14/18 05:43 BP 104/69 11/14/18 05:43 Pulse Ox 98 11/14/18 05:43 - Labs Result Diagrams: 11/14/18 10:13 11/14/18 10:13 Labs: Laboratory Results - last 24 hr 11/13/18 11/13/18 11/13/18 08:05 10:18 10:18 WBC 6.2 RBC 4.69 Hgb 11.9 L Hct 38.4 MCV 82.0 MCH 25.5 L MCHC 31.1 L RDW 15.5 H Plt Count 214 PT 52.7 H* D INR 4.6 Sodium 140 Potassium 3.7 Chloride 106 Carbon Dioxide 25 Anion Gap 13 BUN 8 L Creatinine 1.0 Est GFR ( Amer) > 60 Est GFR (Non-Af Amer) > 60 Random Glucose 96 Calcium 8.8 Troponin I < 0.0120 11/13/18 11/14/18 17:30 02:03 WBC RBC Hgb Hct MCV MCH MCHC RDW Plt Count PT INR Sodium Potassium Chloride Carbon Dioxide Anion Gap BUN Creatinine Est GFR ( Amer) Est GFR (Non-Af Amer) Random Glucose Calcium Troponin I < 0.0120 < 0.0120
[2018-11-14] MEDS ORDERED: Sodium Chloride 0.9% 100 ML ONE (08:52)
[2018-11-14] MEDS ORDERED: Iodixanol 320 MG/ML 100 ML BOTTLE IV ONE (08:52)
[2018-11-14] MEDS: Sucralfate 1 gm/10 ml Oral Susp UD PO SCH ×4 (10:17→21:32)
[2018-11-14] MEDS: Pantoprazole 40 mg EC Tab PO SCH (10:17)
[2018-11-14 10:18] LABS: HEMOGLOBIN 11.8 g/dL (12.0-18.0); MEAN CELL VOLUME 81.6 fl (80.0-94.0); MEAN CORPUSCULAR HEMOGLOBIN 25.7 pg (27.0-31.0); MEAN CORPUSCULAR HGB CONC 31.5 g/dL (33.0-37.0); RBC 4.58 Mil/uL (4.40-5.90); RED CELL DISTRIBUTION WIDTH 15.6 % (11.5-14.5); WHITE BLOOD COUNT 6.7 K/uL (4.8-10.8)
[2018-11-14 10:23] LABS: INR 1.9; PROTHROMBIN TIME 21.7 Seconds (9.8-13.1)
[2018-11-14 10:27] LABS: BLOOD UREA NITROGEN 7 mg/dl (9-20); CALCIUM 8.7 mg/dL (8.4-10.2); GFR NON-AFRICAN AMERICAN > 60
--- NOTE | 2018-11-14 11:25 | CT ---
Date of service: 11/14/2018 PROCEDURE: CT Chest, Abdomen and Pelvis with intravenous contrast HISTORY: r/o dissection COMPARISON: Abdomen pelvis CT examination 11/11/[address] angiogram chest 09/16/2018. TECHNIQUE: Following the CT angiographic style intravenous administration of iodinated contrast material, a CT examination of the chest, abdomen and pelvis performed from the thoracic inlet to the symphysis pubis with reformatted datasets provided in axial, sagittal and coronal planes. Preliminary CT was performed throughout the same distribution prior intravenous contrast administration. Oral contrast was not administered as per referring physician request. Coronal and sagittal reformats were generated. IV dose administered: Visipaque 320, 99 cc Radiation dose: Total exam DLP = 1815.39 mGy-cm. This CT exam was performed using one or more of the following dose reduction techniques: Automated exposure control, adjustment of the mA and/or kV according to patient size, and/or use of iterative reconstruction technique. FINDINGS: The thoracic and abdominal aorta appear normal in caliber from the root to the bifurcation with no stenosis, dissection or aneurysmal dilatation. No occlusion appreciable. Vessels in the chest and major branches in the abdomen appear widely patent as well. CT CHEST WITH CONTRAST: LUNGS: Clear. No nodule, mass or consolidation. MEDIASTINUM: Unremarkable. Normal caliber aorta and pulmonary arterial trunk. No aortic dissection. Upper limits normal size heart. LYMPH NODES: Unremarkable. PLEURA: Unremarkable. No pneumothorax. No pleural fluid. BONES: Unremarkable. OTHER FINDINGS: Obese body habitus. CT ABDOMEN AND PELVIS: LIVER: Unremarkable. No gross lesion or ductal dilatation. GALLBLADDER AND BILE DUCTS: Unremarkable. PANCREAS: Unremarkable. No gross lesion or ductal dilatation. SPLEEN: Unremarkable. ADRENALS: Unremarkable. No mass. KIDNEYS AND URETERS: Unremarkable. No hydronephrosis. No solid mass. VASCULATURE: No aortic atherosclerotic calcification or mural plaque present. Unremarkable. No aortic aneurysm. Prior inferior cava filter reiterated in infrarenal IVC. BOWEL: Evaluation of the gastrointestinal tract is limited due to the lack of oral contrast administration. No definitive acute bowel findings appreciable at this time. APPENDIX: Normal appendix. PERITONEUM: Unremarkable. No free fluid. No free air. LYMPH NODES: Unremarkable. No enlarged lymph nodes. BLADDER: Unremarkable. REPRODUCTIVE: Unremarkable. BONES: No acute fracture. OTHER FINDINGS: Patient is apparently transsexual having undergone bilateral mastectomy but not conversion of external sectional genitalia. IMPRESSION: No evidence of thoracic or abdominal aortic dissection, aneurysm or other vascular derangement related to the aorta. Lesser limited additional details as discussed above.
--- NOTE | 2018-11-14 11:41 | CP.PCM.PCO ---
Assessment & Plan - Assessment and Plan (Free Text) Assessment: patient seen and examined this morning reports feeling well, denies cp, dizzines or coreas s/p CT chest w/ iv contrast; results negative for Aortic dissection Echo wnl pt. reports feeling helpless and hopeless but denies current suicidal ideation . Pt. requesting ECT treatment as antidepressant meds are not helping notified for consult INR 1.9 today; will restart with coumadin 5 mg po daily pt. agrees to inpatient psych tx pt. medically cleared by , and Seman
--- NOTE | 2018-11-14 12:21 | PN ---
DATE: 11/14/2018 SUBJECTIVE: The patient denies any chest pain or shortness of breath. PHYSICAL EXAMINATION: VITAL SIGNS: Blood pressure 98/65, heart rate 64, temperature 98, and respirations 18. HEENT: Normocephalic. CHEST: Clear. HEART: S1 and S2 regular. EXTREMITIES: Trace edema. LABORATORY DATA: Hemoglobin and hematocrit 11.9 and 38.5. White count and platelet count are within normal limit. Today's troponin is within normal limit. Chest CT scan at the instruction per Dr. Alva was performed. The report is still pending. ASSESSMENT: 1. Chest pain, myocardial infarction ruled out. 2. 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 3. The patient is a transgender and is currently on weekly testosterone injections. 4. History of psychiatric disorder. RECOMMENDATIONS: Continue current Abilify, Carafate, Minipress and Protonix. Resume subcutaneous Lovenox if there is no contraindication. I will follow the chest CT scan. I will also recommend a cardiac catheterization once the patient is stable from psychiatric point of view. Kelvin Valdez MD
[2018-11-14] MEDS: Magnesium Oxide 400 mg Tab UD PO SCH (18:00)
[2018-11-14] MEDS: Amoxicillin-Clav 500-125 mg Tab PO SCH (21:32)
--- NOTE | 2018-11-14 23:04 | CARD ---
APPROVED REPORT Date of service: 11/14/2018 EKG Measurement Heart [id number] SC 198P28 [id number] <Conclusion> Normal sinus rhythm with sinus arrhythmia Nonspecific ST and T wave abnormality Abnormal ECG
--- NOTE | 2018-11-14 23:24 | CP.PCM.PN ---
Subjective - Date & Time of Evaluation Date of Evaluation: 11/14/18 Time of Evaluation: 17:05 Objective - Vital Signs/Intake and Output Vital Signs (last 24 hours): Temp Pulse Resp BP Pulse Ox 98.5 F 73 16 121/82 97 11/14/18 20:16 11/14/18 20:16 11/14/18 20:16 11/14/18 20:16 11/14/18 20:16 - Medications Medications: Current Medications Acetaminophen (Tylenol 325mg Tab) 650 mg PO Q6 PRN PRN Reason: Pain, Mild (1-3) Last Admin: 11/14/18 12:57 Dose: 650 mg Amoxicillin/Clavulanate Potassium (Augmentin 500 Mg-125 Mg Tab) 1 tab PO Q12 [facility]; Protocol Last Admin: 11/14/18 21:32 Dose: 1 tab Aripiprazole (Abilify) 10 mg PO DAILY [facility] Last Admin: 11/14/18 10:16 Dose: 10 mg Magnesium Oxide (Mag-Ox) 400 mg PO BID [facility] Last Admin: 11/14/18 18:00 Dose: 400 mg Pantoprazole Sodium (Protonix Ec Tab) 40 mg PO DAILY [facility] Last Admin: 11/14/18 10:17 Dose: 40 mg Prazosin HCl (Minipress) 3 mg PO HS [facility] Last Admin: 11/13/18 22:27 Dose: 3 mg Sucralfate (Carafate Oral Susp) 1 gm PO QID [facility] Last Admin: 11/14/18 21:32 Dose: 1 gm Trazodone HCl (Desyrel) 100 mg PO HS [facility] Last Admin: 11/14/18 22:20 Dose: 100 mg - Labs Labs: 11/14/18 10:13 11/14/18 10:13 PT 21.7 Seconds (9.8-13.1) H D 11/14/18 10:13 INR 1.9 11/14/18 10:13 APTT 53.2 Seconds (25.6-37.1) H 11/12/18 19:58
[2018-11-15] MEDS ORDERED: Morphine 4 MG/ML VIAL IVP ONE (00:45)
[2018-11-15] MEDS: Morphine 4 MG/ML VIAL IVP PRN ×2 (06:04→13:33)
[2018-11-15 07:44] VITALS: RESP 20
[2018-11-15] MEDS: Amoxicillin-Clav 500-125 mg Tab PO SCH (08:21)
[2018-11-15] MEDS: Sucralfate 1 gm/10 ml Oral Susp UD PO SCH ×2 (08:22→12:41)
[2018-11-15] MEDS: Pantoprazole 40 mg EC Tab PO SCH (08:23)
[2018-11-15] MEDS: Magnesium Oxide 400 mg Tab UD PO SCH (08:24)
[2018-11-15 12:27] VITALS: BP 114/71; PULSE 74; TEMP 98.1; O2SAT 98
[2018-11-15 13:45] LABS: INR 1.6; PROTHROMBIN TIME 18.6 Seconds (9.8-13.1)
--- NOTE | 2018-11-15 17:26 | PN ---
DATE: 11/15/2018 SUBJECTIVE: The patient denies any chest pain or shortness of breath. No suicidal ideation. PHYSICAL EXAMINATION: VITAL SIGNS: Blood pressure 112/73, heart rate 61, temperature 98, and respirations 20. HEENT: Normocephalic. CHEST: Clear. HEART: S1 and S2 regular. EXTREMITIES: No edema. DIAGNOSTIC DATA: Chest CT scan was . No evidence of thoracic or abdominal aortic dissection, aneurysm or other vascular derangement of aorta. ASSESSMENT: 1. Chest pain, myocardial infarction ruled out. 2. Depression with history of electroconvulsive therapy several times in the past. 3. History of recurrent pulmonary emboli. The patient was reported to have protein S deficiency and is currently on weekly testosterone injections. RECOMMENDATIONS: Continue current Abilify, oral Augmentin, Minipress . Coumadin therapy has to be adjusted by the steward/stewardess third. The patient can undergo electroconvulsive therapy from the cardiac point of view; however, he should be followed by a drier and grinder tender depending on allocation of electroconvulsive therapy. Any invasive cardiac workup needs to be delayed until the patient is stable from psychiatric point of view. Kelvin Valdez MD
--- NOTE | 2018-11-15 19:10 | CP.PCM.DIS ---
Provider - Provider Date of Admission: 11/13/18 11:29 Attending physician: Nigel Larios MD Consults: 11/12/18 03:49 Pastoral Care Referral Routine Comment: Physician Instructions: Reason For Exam: New admission 11/12/18 09:58 Hematology Oncology Consult Routine Comment: Consulting Provider: Rashi Mims Consulting Physician: Rashi Mims Reason for Consult: hx prot. c/s def; on coumadin; inr 14 11/13/18 09:43 Cardiology Consult Routine Comment: hx prot c and s def; ekg changes Consulting Provider: Kelvin Valdez Consulting Physician: Kelvin Valdez Reason for Consult: hx prot c and s def; ekg changes 11/13/18 13:09 Psychiatry Consult Routine Comment: Consulting Provider: Hui Guo Consulting Physician: Hui Guo Reason for Consult: depression; hx ECT; pt. requesting ECT tx for depression Time Spent in preparation of Discharge (in minutes): 30 Diagnosis - Discharge Diagnosis (1) Anemia Status: Acute (2) Coumadin toxicity Status: Acute Priority: High (3) Hematemesis Status: Acute Priority: Medium (4) Protein S deficiency Status: Acute Priority: Medium (5) Pulmonary embolism Status: Acute Priority: Medium Comment: INR 1.9 yesterday. Coumadin 5mg given yesterday. Patient refused Hospital Course - Lab Results Lab Results: Micro Results 11/11/18 22:10 Urine Urine Culture - Final MULTIPLE SPECIES. PROBABLE CONTAMINATION. Most Recent Lab Values WBC 6.7 K/uL (4.8-10.8) 11/14/18 10:13 RBC 4.58 Mil/uL (4.40-5.90) 11/14/18 10:13 Hgb 11.8 g/dL (12.0-18.0) L 11/14/18 10:13 Hct 37.4 % (35.0-51.0) 11/14/18 10:13 MCV 81.6 fl (80.0-94.0) 11/14/18 10:13 MCH 25.7 pg (27.0-31.0) L 11/14/18 10:13 MCHC 31.5 g/dL (33.0-37.0) L 11/14/18 10:13 RDW 15.6 % (11.5-14.5) H 11/14/18 10:13 Plt Count 216 K/uL (130-400) 11/14/18 10:13 MPV 7.9 fl (7.2-11.7) 11/11/18 20:01 Neut % (Auto) 57.4 % (50.0-75.0) 11/11/18 20:01 Lymph % (Auto) 34.4 % (20.0-40.0) 11/11/18 20:01 [place] % (Auto) 6.2 % (0.0-10.0) 11/11/18 20:01 Eos % (Auto) 1.6 % (0.0-4.0) 11/11/18 20:01 Baso % (Auto) 0.4 % (0.0-2.0) 11/11/18 20:01 Neut # (Auto) 4.3 K/uL (1.8-7.0) 11/11/18 20:01 Lymph # (Auto) 2.6 K/uL (1.0-4.3) 11/11/18 20:01 [place] # (Auto) 0.5 K/uL (0.0-0.8) 11/11/18 20:01 Eos # (Auto) 0.1 K/uL (0.0-0.7) 11/11/18 20:01 Baso # (Auto) 0.0 K/uL (0.0-0.2) 11/11/18 20:01 PT 18.6 Seconds (9.8-13.1) H 11/15/18 11:00 INR 1.6 11/15/18 11:00 APTT 53.2 Seconds (25.6-37.1) H 11/12/18 19:58 Sodium 140 mmol/l (132-148) 11/14/18 10:13 Potassium 4.2 MMOL/L (3.6-5.0) 11/14/18 10:13 Chloride 104 mmol/L (98-107) 11/14/18 10:13 Carbon Dioxide 28 mmol/L (22-30) 11/14/18 10:13 Anion Gap 12 (10-20) 11/14/18 10:13 BUN 7 mg/dl (9-20) L 11/14/18 10:13 Creatinine 1.1 mg/dl (0.8-1.5) 11/14/18 10:13 Est GFR ( Amer) > 60 11/14/18 10:13 Est GFR (Non-Af Amer) > 60 11/14/18 10:13 Random Glucose 170 mg/dL (75-110) H 11/14/18 10:13 Calcium 8.7 mg/dL (8.4-10.2) 11/14/18 10:13 Total Bilirubin < 0.1 mg/dl (0.2-1.3) L 11/12/18 07:17 AST 23 U/L (17-59) 11/12/18 07:17 ALT 27 U/L (21-72) 11/12/18 07:17 Alkaline Phosphatase 61 U/L (38-126) 11/12/18 07:17 Troponin I < 0.0120 ng/mL (0.00-0.120) 11/14/18 02:03 Total Protein 6.3 G/DL (6.3-8.2) 11/12/18 07:17 Albumin 3.2 g/dL (3.5-5.0) L D 11/12/18 07:17 Globulin 3.0 gm/dL (2.2-3.9) 11/12/18 07:17 Albumin/Globulin Ratio 1.1 (1.0-2.1) 11/12/18 07:17 Urine Color Yellow (YELLOW) 11/11/18 20:01 Urine Clarity Cloudy (Clear) 11/11/18 20:01 Urine pH 5.0 (5.0-8.0) 11/11/18 20:01 Ur Specific [place] 1.026 (1.003-1.030) 11/11/18 20:01 Urine Protein 30 mg/dL (NEGATIVE) 11/11/18 20:01 Urine Glucose (UA) Neg mg/dL (NEGATIVE) 11/11/18 20:01 Urine Ketones Trace mg/dL (NEGATIVE) 11/11/18 20:01 Urine Blood Negative (NEGATIVE) 11/11/18 20:01 Urine Nitrate Negative (NEGATIVE) 11/11/18 20:01 Urine Bilirubin Negative (NEGATIVE) 11/11/18 20:01 Urine Urobilinogen 2.0 mg/dL (0.2-1.0) 11/11/18 20:01 Ur Leukocyte Esterase Mod [place]/uL (Negative) 11/11/18 20:01 Urine RBC (Auto) 3 /hpf (0-3) 11/11/18 20:01 Urine Microscopic WBC 15 /hpf (0-5) H 11/11/18 20:01 Ur Squamous Epith Cells 3 /hpf (0-5) 11/11/18 20:01 Urine Bacteria Rare (<OCC) 11/11/18 20:01 Hyaline Casts 6-10 /hpf (0-2) H 11/11/18 20:01 Blood Type A POSITIVE 11/11/18 20:01 Antibody Screen Negative 11/11/18 20:01 BBK History Checked Patient has bt 11/11/18 20:01 Discharge Exam - Head Exam Head Exam: ATRAUMATIC, NORMAL INSPECTION, NORMOCEPHALIC Discharge Plan - Follow Up Plan Condition: STABLE Disposition: DISCH TO PSYCH HOSP PLAN READ Instructions: Gastrointestinal Bleeding (DC), What to Do When Your INR Is Too High Referrals: Paras Ross MD [Family Provider] - Nigel Larios MD [Staff Provider] -
[2018-11-16] MEDS ORDERED: TESTOSTERONE CYPIONATE IM SCH (09:00)
== END 2018-11-15 16:17 | DRG 582 ==
LOC: H.ER 17:57 → H.ERHOLD 22:52 → H.TEL 11-12 02:48 → OBSVTOIN 11-13 11:29
PROVIDERS: ADMIT Internal Medicine; ATTEND Internal Medicine
DX: T45.512A Poisoning by anticoagulants, intentional self-harm, initial encounter (principal); I26.99 Other pulmonary embolism without acute cor pulmonale; D68.59 Other primary thrombophilia; F14.90 Cocaine use, unspecified, uncomplicated; R04.2 Hemoptysis; K92.0 Hematemesis; F64.9 Gender identity disorder, unspecified; Z79.01 Long term (current) use of anticoagulants; D64.9 Anemia, unspecified; F31.9 Bipolar disorder, unspecified; F41.9 Anxiety disorder, unspecified; F60.3 Borderline personality disorder; J45.909 Unspecified asthma, uncomplicated; K52.9 Noninfective gastroenteritis and colitis, unspecified; T45.515A Adverse effect of anticoagulants, initial encounter; Z86.711 Personal history of pulmonary embolism; Z90.13 Acquired absence of bilateral breasts and nipples; Z91.5 Personal history of self-harm; F32.9 Major depressive disorder, single episode, unspecified; R07.89 Other chest pain; R16.1 Splenomegaly, not elsewhere classified; R94.31 Abnormal electrocardiogram [ECG] [EKG]

== ENCOUNTER 2018-11-15 16:24 | Inpatient (IN) | payer MEDICAID ==
[2018-11-15 16:41] VITALS: BMI 44.8
[2018-11-15] MEDS ORDERED: DiphenhydrAMINE 50 mg/ml Inj IM PRN (16:56)
[2018-11-15] MEDS ORDERED: Magnesium Hydroxide Susp 30 ml UD PO PRN (16:56)
[2018-11-15] MEDS ORDERED: Alum-Mag Hydrox-Simethicone Susp (30 mL) PO PRN (16:56)
[2018-11-15] MEDS: Amoxicillin-Clav 500-125 mg Tab PO SCH (21:51)
[2018-11-15] MEDS: Sucralfate 1 gm/10 ml Oral Susp UD PO SCH (21:52)
--- NOTE | 2018-11-15 22:22 | PCM.PSYCH ---
Initial Psychiatric Evaluation - Initial Psychiatric Evaluation Current Medications: Active Medications Generic Name Dose Route Start Last Admin Trade Name Freq PRN Reason Stop Dose Admin Al Hydrox/Mg Hydrox/Simethicone 30 ml 11/15/18 16:56 Maalox Plus 30 Ml PO Q4 PRN Dyspepsia Amoxicillin/Clavulanate Potassium 1 tab 11/15/18 21:00 11/15/18 21:51 Augmentin 500 Mg-125 Mg Tab PO 11/21/18 21:01 1 tab Q12 XIN Administration Protocol Aripiprazole 10 mg 11/16/18 09:00 Abilify PO DAILY XIN Diphenhydramine HCl 50 mg 11/15/18 16:56 Benadryl IM Q6 PRN Extrapyramidal S/S Unable PO Diphenhydramine HCl 50 mg 11/15/18 17:00 Benadryl PO Q6 PRN Dystonic reaction/ EPS Diphenhydramine HCl 50 mg 11/15/18 17:02 Benadryl PO HS PRN Sleep Haloperidol 5 mg 11/15/18 16:56 Haldol PO Q4 PRN Agitation Haloperidol Lactate 5 mg 11/15/18 16:56 Haldol IM Q4 PRN Agitation, Unable to Take PO Ibuprofen 400 mg 11/15/18 21:23 11/15/18 21:50 Motrin Tab PO 400 mg Q6 PRN Administration for 1-7 pain Lorazepam 2 mg 11/15/18 16:56 Ativan IM Q4 PRN Anxiety/Agitation,Unable PO Lorazepam 1 mg 11/15/18 17:03 Ativan PO Q8 PRN Anxiety Magnesium Hydroxide 30 ml 11/15/18 16:56 Milk Of Magnesia PO HS PRN Constipation Pantoprazole Sodium 40 mg 11/16/18 09:00 Protonix Ec Tab PO DAILY XIN Quetiapine Fumarate 50 mg 11/15/18 22:00 11/15/18 21:51 Seroquel PO 50 mg HS XIN Administration Quetiapine Fumarate 50 mg 11/15/18 22:15 Seroquel PO HS XIN Sucralfate 1 gm 11/15/18 22:00 11/15/18 21:52 Carafate Oral Susp PO 1 gm QID XIN Administration Past Psychiatric History - Past Psychiatric History Pertinent Medical Hx (Current Medical&Sleep Prob, Allergies): Allergies Allergy/AdvReac Type Severity Reaction Status Date / Time fentanyl Allergy SHORTNESS Verified 11/11/18 23:43 OF BREATH sulfamethoxazole Allergy SHORTNESS Verified 11/11/18 23:43 [From Bactrim] OF BREATH trimethoprim [From Bactrim] Allergy SHORTNESS Verified 11/11/18 23:43 OF BREATH acetaminophen [From Percocet] AdvReac VOMITING Verified 11/11/18 23:43 oxycodone [From Percocet] AdvReac VOMITING Verified 11/11/18 23:43 Testosterone Cypionate [Depo-Testosterone Inj] 0.5 ml IM SUN 09/16/18 ARIPiprazole [Abilify] 10 mg PO DAILY 30 Days #30 tab 09/25/18 traZODone [Desyrel] 100 mg PO HS 30 Days #30 tab 09/25/18 Amoxicillin/Clavulanate [Augmentin 500 MG-125 MG Tab] 1 tab PO Q12 tab 11/15/18 Magnesium Oxide [Mag-Ox] 400 mg PO BID tab 11/15/18 Pantoprazole [Protonix EC Tab] 40 mg PO DAILY ect 11/15/18 Sucralfate [Carafate Oral Susp] 1 gm PO QID udc 11/15/18
[2018-11-16 07:25] LABS: HDL CHOLESTEROL 27 MG/DL (30-70)
[2018-11-16 07:29] LABS: INR 1.7; PROTHROMBIN TIME 19.7 Seconds (9.8-13.1)
[2018-11-16 07:36] LABS: LDL CHOLESTEROL 109 mg/dL (0-129)
[2018-11-16 07:41] LABS: T4 5.61 ug/dl (5.5-11.0)
[2018-11-16] MEDS: Sucralfate 1 gm/10 ml Oral Susp UD PO SCH ×4 (12:09→22:01)
[2018-11-16] MEDS: Amoxicillin-Clav 500-125 mg Tab PO SCH ×2 (12:29→21:58)
[2018-11-16] MEDS: Pantoprazole 40 mg EC Tab PO SCH (12:29)
--- NOTE | 2018-11-16 18:57 | PCM.BM ---
<Jairo Parra - Last Filed: 11/19/18 13:55> Treatment assets and liabiliti Patient Assests: adapts well, cooperative, educated, resourceful, self-reliant, good support system (Pt. reports having a loving and supportive relationship with Mrs. Acosta, a woman who worked with [employer] and who pt considers a mother. Pt. reports having a small group of friends he refers to as his [place] who he can confide in. ), negotiates basic needs, cognitively intact Family Contact Family involvement: Family/SO is involved Family contact: Patient agrees to contact, Family has been contacted by patient, Telephone contact initiated by staff Family contact name: Dave Marie - "Chosen" Mother Family contacted how many times per week?: 2 Family contact comment: Office Technology Professor spoke with pt's "Chosen" mother, Dave Marie ([phone]), to relay treatment plan of restarting Abilify and referring pt for intensive outpatient therapy to help pt build self-esteem, coping skills and to gradually process past traumas. Office Technology Professor also explained rationale for team to refuse ECT for pt as he has Bipolar Disorder and is not currently in a major depressive episode and ECT could push pt into a manic episode. - Goals for Treatment Patient goals for treatment: Pt unable to see goals at this point as he does not see a reason to live. Pt is advocating for ECT as he feels it is the only treatment that has helped. Discharge/Continuing Care - Education Needs Education Needs: Patient Medication, Patient Diagnosis/Disease Process, Patient Coping Skills, Patient Community resources, Patient Aftercare Safety Plan - Discharge Discharge Criteria: Tolerates medication w/o severe side effects, Free of Suicidal thoughts, Free of agitation, Normal sleep pattern, Ability to care for self, Reduction of target symptoms Discharge to:: Home - Treatment Team Participation Patient/Family/SO Statement: 11/19/18 13:56 Team attempted to meet with pt for team on 11/18/18. Pt refused to attend team. Dr. Vigil and HUBER Parra met with pt in his room separately to explain to pt the teams decision not to move forward with ECT as pt is not a good candidate and express that ECT could make pt manic or more irritable. Pt was initially very frustrated with this news and reported that medications are not effective in his treatment. Office Technology Professor attempted to relay the importance of intensive therapy for pt to work on his issues and to process his past traumas. This work is difficult and takes time, but will ultimately aid pt more than medications. Discussed with Family/SO: Yes Was Patient/Family/SO present at Treatment Team Meeting: Yes <Yuliya Vigil - Last Filed: 11/21/18 08:55> - Diagnosis (1) Borderline personality disorder Status: Acute Interventions: 11/21/18 08:55 psychotherapy, pharmacotherapy
--- NOTE | 2018-11-16 19:38 | PCM.PYCHPN ---
Psychiatric Progress Note - Psychiatric Progress Note Patient seen today, length of contact: chart reviewed case discussed with team pt seen Patient Chief Complaint: was feeling anxious depressed some what improved but continues to express feelings of depression and interest in ECT. pt was seen with peers in social area watching football cheer teem at times laughing with peers laughing clapping hands, staff report pt rx adherent. was reportedly in room tired first part of day (seroquel was started last night at 50mg) Problems Identified/Issues Discussed: alteration in mood alteration in self care alteration in coping -self harm hx of cutting none reported this admission Medical Problems: per chart pt obese pt with hx of cutting-no open wounds mutiple scars noted on skin r Diagnostic Results: per psychiatry per medicine per nursing per social work per recreational therapy DSM 5 Symptoms Update: somewhat less depressed but continues to fleeting thoughts of suicide can co ntract for safety Medication Change: No Medical Record Reviewed: Yes Consults ordered or reviewed: pt seen by dr calhoun Mental Status Examination - Cognitive Function Orientation: Person, Place, Situation, Time Memory: Intact Attention: WNL Concentration: WNL Association: WNL Fund of Knowledge: WN Decription of patient's judgement and insights: impaired - Mood Mood: Depressed - Affect Additional comments: initally constricted later noted with laughing, making cheering sounds when watching football on tv, standing yelling during game - Formal Thought Process Formal Thought Process: No Impairment - Suicidal Ideation Plan: contracts for safety - Homicidal Ideation Homicidal Ideation: No Goal/Treatment Plan - Goal/Treatment Plan Need for Continued Stay: Severe depression anxiety, Discharge may exacerbated symptoms Progress Toward Problem(s) and Goals/Treatment Plan: inpt milieu adjust meds per status vital signs and clinical observation per per protocol and per clinical status pt seen by dr calhoun today pt continues to express interest in ECT-reportedly in past worked to alleviate depression reportedly took place in [facility] discharge planning in progress Estimated Date of D/C: 11/21/18 - Smoking Cessation Smoking Cessation Initiated: No Reason for not providing: pt defers
--- NOTE | 2018-11-16 20:57 | CP.PCM.PN ---
Subjective - Date & Time of Evaluation Date of Evaluation: 11/16/18 Time of Evaluation: 17:15 Objective - Vital Signs/Intake and Output Vital Signs (last 24 hours): Temp Pulse Resp BP Pulse Ox 97.5 F L 94 H 18 126/61 11/16/18 09:08 11/16/18 09:08 11/16/18 09:08 11/16/18 09:08 - Medications Medications: Current Medications Al Hydrox/Mg Hydrox/Simethicone (Maalox Plus 30 Ml) 30 ml PO Q4 PRN PRN Reason: Dyspepsia Amoxicillin/Clavulanate Potassium (Augmentin 500 Mg-125 Mg Tab) 1 tab PO Q12 [facility]; Protocol Stop: 11/21/18 21:01 Last Admin: 11/16/18 12:29 Dose: 1 tab Aripiprazole (Abilify) 10 mg PO DAILY [facility] Last Admin: 11/16/18 12:29 Dose: 10 mg Diphenhydramine HCl (Benadryl) 50 mg IM Q6 PRN PRN Reason: Extrapyramidal S/S Unable PO Diphenhydramine HCl (Benadryl) 50 mg PO Q6 PRN PRN Reason: Dystonic reaction/ EPS Diphenhydramine HCl (Benadryl) 50 mg PO HS PRN PRN Reason: Sleep Haloperidol (Haldol) 5 mg PO Q4 PRN PRN Reason: Agitation Haloperidol Lactate (Haldol) 5 mg IM Q4 PRN PRN Reason: Agitation, Unable to Take PO Ibuprofen (Motrin Tab) 400 mg PO Q6 PRN PRN Reason: for 1-7 pain Last Admin: 11/15/18 21:50 Dose: 400 mg Lorazepam (Ativan) 2 mg IM Q4 PRN PRN Reason: Anxiety/Agitation,Unable PO Lorazepam (Ativan) 1 mg PO Q8 PRN PRN Reason: Anxiety Magnesium Hydroxide (Milk Of Magnesia) 30 ml PO HS PRN PRN Reason: Constipation Pantoprazole Sodium (Protonix Ec Tab) 40 mg PO DAILY [facility] Last Admin: 11/16/18 12:29 Dose: 40 mg Quetiapine Fumarate (Seroquel) 50 mg PO HS [facility] Last Admin: 11/15/18 21:51 Dose: 50 mg Sucralfate (Carafate Oral Susp) 1 gm PO QID [facility] Last Admin: 11/16/18 17:19 Dose: 1 gm - Labs Labs: PT 19.7 Seconds (9.8-13.1) H 11/16/18 06:30 INR 1.7 11/16/18 06:30
[2018-11-17 01:21] VITALS: O2SAT 99
[2018-11-17] MEDS: Sucralfate 1 gm/10 ml Oral Susp UD PO SCH ×4 (11:39→21:42)
[2018-11-17] MEDS: Amoxicillin-Clav 500-125 mg Tab PO SCH ×2 (13:05→21:42)
[2018-11-17] MEDS: Pantoprazole 40 mg EC Tab PO SCH (13:07)
--- NOTE | 2018-11-17 16:25 | PCM.PYCHPN ---
Psychiatric Progress Note - Psychiatric Progress Note Patient seen today, length of contact: chart reviewed case discussed with team pt seen Patient Chief Complaint: pt reported to staff today that pt became upset when he was uncertain as to when ECT might be able to be started, pt. requested prn medications, pt reportedly became upset and was requesting IM medications stating "what do i have to do to get the IM the pills dont work". Pt admitted to primary RN that he had punched the wall". Larry AGEE and this assembly instructions writer met with pt discussed status with pt.. It was explained to pt. that punching the wall could not only result in fracture as well as excess bleeding and bruising due to recent overdose of coumadin. This was explained to pt. and pt admits that "I did not consider this and did not realize this or think of this". Acknowledge that ect at [facility] will be led by dr vigil who is scheduled to return tomorrow. It was explained that Dr. Vigil will not able to start ECT tomorrow but that she will be able to give details as to if and when ect at [facility] might begiven. If the ECT at [facility] cannot be started within a period that DR philip believes clinically relevant or indicated referral to alternative site ?[facility] might be considered. pt. was verbally agreeable to notify staff if he (pt) was becoming upset and required intervention pt contracts to notify staff. was explained to pt that while awake staff would check on him every fifteen minutes pt was verbally agreeable to plan. hospitalist was called by staff and will be asked to evaluate pt. for potential injury to hands vs. pt's reported history of tooth infection. Problems Identified/Issues Discussed: alteration in mood alteration in self care alteration in coping -self harm hx of cutting none reported this admission, pt reported and then was noted to punch plexiglass at nursing station Medical Problems: per chart pt obese pt with hx of cutting-no open wounds mutiple scars noted on skin r Diagnostic Results: per psychiatry per medicine per nursing per social work per recreational therapy DSM 5 Symptoms Update: alteration in coping alteration in mood Medication Change: No Medical Record Reviewed: Yes Consults ordered or reviewed: pt seen by hospitalist Mental Status Examination - Cognitive Function Orientation: Person, Place, Situation, Time Memory: Intact Attention: WNL Concentration: WNL Association: WNL Fund of Knowledge: [facility] Decription of patient's judgement and insights: impaired - Mood Mood: Depressed - Affect Affect: Depressed - Speech Speech: Soft (punching wall plexiglass when pt is known to have hypercollaguability s/p coumadin od) - Formal Thought Process Formal Thought Process: No Impairment - Homicidal Ideation Homicidal Ideation: No Goal/Treatment Plan - Goal/Treatment Plan Need for Continued Stay: Severe depression anxiety, Discharge may exacerbated symptoms Progress Toward Problem(s) and Goals/Treatment Plan: inpt milieu adjust meds per status vital signs and clinical observation per per protocol and per clinical status pt seen by dr calhoun today pt continues to express interest in ECT-reportedly in past worked to alleviate depression reportedly took place in [facility] pt to assessed q 15minutes and per clinical status pt to be seen by hospitalist for related to hyper coagulation-punching wall plexi glass and infection mouth pt requests to receive prn in IM form when clinically appropriate (pt staff ) related to past history of responding to IM vs po-review with pt staff will assess related to lorazepam/haldol/benadry with same parameters as po/im on case per case basis discharge planning in progress Estimated Date of D/C: 11/21/18 - Smoking Cessation Smoking Cessation Initiated: No Reason for not providing: pt defers
--- NOTE | 2018-11-18 01:29 | CP.PCM.PN ---
Subjective - Date & Time of Evaluation Date of Evaluation: 11/17/18 Time of Evaluation: 23:15 - Subjective Subjective: Seen and examined at the bed side. Patient refusing PT/INR today. Despite patient received Coumadin today. Asking a PICC Line for PT/INR which is not an indication for just for blood work Objective - Vital Signs/Intake and Output Vital Signs (last 24 hours): Temp Pulse Resp BP Pulse Ox 97.0 F L 91 H 18 125/74 99 11/17/18 18:24 11/17/18 22:00 11/17/18 22:00 11/17/18 22:00 11/16/18 22:00 - Medications Medications: Current Medications Al Hydrox/Mg Hydrox/Simethicone (Maalox Plus 30 Ml) 30 ml PO Q4 PRN PRN Reason: Dyspepsia Amoxicillin/Clavulanate Potassium (Augmentin 500 Mg-125 Mg Tab) 1 tab PO Q12 XIN; Protocol Stop: 11/21/18 21:01 Last Admin: 11/17/18 21:42 Dose: 1 tab Aripiprazole (Abilify) 5 mg PO DAILY XIN Last Admin: 11/17/18 13:05 Dose: 5 mg Diphenhydramine HCl (Benadryl) 50 mg IM Q6 PRN PRN Reason: Extrapyramidal S/S Unable PO Diphenhydramine HCl (Benadryl) 50 mg PO Q6 PRN PRN Reason: Dystonic reaction/ EPS Last Admin: 11/17/18 13:33 Dose: 50 mg Diphenhydramine HCl (Benadryl) 50 mg PO HS PRN PRN Reason: Sleep Haloperidol (Haldol) 5 mg PO Q4 PRN PRN Reason: Agitation Last Admin: 11/17/18 13:33 Dose: 5 mg Haloperidol Lactate (Haldol) 5 mg IM Q4 PRN PRN Reason: Agitation, Unable to Take PO Hydroxyzine HCl (Atarax) 10 mg PO TID PRN PRN Reason: Anxiety Last Admin: 11/16/18 21:59 Dose: 10 mg Ibuprofen (Motrin Tab) 400 mg PO Q6 PRN PRN Reason: for 1-7 pain Last Admin: 11/17/18 21:43 Dose: 400 mg Lorazepam (Ativan) 2 mg IM Q4 PRN PRN Reason: Anxiety/Agitation,Unable PO Lorazepam (Ativan) 1 mg PO Q8 PRN PRN Reason: Anxiety Last Admin: 11/17/18 15:23 Dose: 1 mg Magnesium Hydroxide (Milk Of Magnesia) 30 ml PO HS PRN PRN Reason: Constipation Pantoprazole Sodium (Protonix Ec Tab) 40 mg PO DAILY [facility] Last Admin: 11/17/18 13:07 Dose: Not Given Prazosin HCl (Minipress) 2 mg PO HS [facility] Last Admin: 11/17/18 21:42 Dose: 2 mg Quetiapine Fumarate (Seroquel) 100 mg PO HS [facility] Last Admin: 11/17/18 21:42 Dose: 100 mg Sucralfate (Carafate Oral Susp) 1 gm PO QID [facility] Last Admin: 11/17/18 21:42 Dose: 1 gm - Labs Labs: PT 19.7 Seconds (9.8-13.1) H 11/16/18 06:30 INR 1.7 11/16/18 06:30 Assessment and Plan (1) Protein S deficiency Status: Acute (2) Pulmonary embolism Status: Acute (3) Schizoaffective disorder Status: Acute - Assessment and Plan (Free Text) Plan: PT/INR in Am Coumadin 5mg Today, and then after Daily
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
[2018-11-18 08:24] LABS: INR 2.4; PROTHROMBIN TIME 27.6 Seconds (9.8-13.1)
[2018-11-18] MEDS: Sucralfate 1 gm/10 ml Oral Susp UD PO SCH ×4 (10:00→21:20)
[2018-11-18] MEDS: Amoxicillin-Clav 500-125 mg Tab PO SCH ×3 (10:00→21:21)
[2018-11-18] MEDS: Pantoprazole 40 mg EC Tab PO SCH (10:00)
--- NOTE | 2018-11-18 12:47 | PCM.PYCHPN ---
Psychiatric Progress Note - Psychiatric Progress Note Patient seen today, length of contact: chart reviewed case discussed with team pt seen Patient Chief Complaint: I need to get out of here Problems Identified/Issues Discussed: pt evaluated with treatment team, poor eye contact uncooperative refusing medications, pt has also been refusing essential blood work, requesting to be discharged, stating that medications and treatment here would not help him and he needs to leave, minimizing his recent suicide attempt which was the second overdose on Coumadin within the last two months , pt rationalizing his suicide attempt stating it was only to be admitted to hospital pt continues to be impulsive and irritable, punched the wall yesterday, continues to be a high risk for suicide , pt has been requesting ECT, pt however has history of non compliance with bryce atment , currently not compliant with treatment or blood work also has history of manic episodes, anger and irritability ,accordingly discussed with patient the possible risks with ECT treatment including manic episode anger and irritablility DSM 5 Symptoms Update: bipolar disorder borderline personality disorder Medication Change: Yes (increase abilify) Medical Record Reviewed: Yes Mental Status Examination - Cognitive Function Orientation: Person, Place, Situation, Time Memory: Intact Attention: WNL Concentration: WNL Association: WNL Fund of Knowledge: WNL - Mood Mood: Depressed - Affect Affect: Constricted, Depressed - Speech Speech: Soft (punching wall plexiglass when pt is known to have hypercollaguability s/p coumadin od) Additional comments: under productive - Formal Thought Process Formal Thought Process: No Impairment - Suicidal Ideation Suicidal Ideation: Yes - Homicidal Ideation Homicidal Ideation: No Goal/Treatment Plan - Goal/Treatment Plan Need for Continued Stay: Severe depression anxiety, Discharge may exacerbated symptoms Progress Toward Problem(s) and Goals/Treatment Plan: pt at current mental status requesting to be discharged , refusing treatment , refusing blood work , uncooperative, irritable and impulsive, has been punching valenzuela, high suicide risk ,pt will be referred for screening for involuntary admission increase abilify to 10mg daily Estimated Date of D/C: 11/21/18
--- NOTE | 2018-11-18 16:00 | RAD ---
Date of service: 11/18/2018 HISTORY: for transfer COMPARISON: Portable chest 09/16/2018. FINDINGS: LUNGS: No active pulmonary disease. PLEURA: No significant pleural effusion identified, no pneumothorax apparent. CARDIOVASCULAR: No aortic atherosclerotic calcification present. Normal cardiac size. No pulmonary vascular congestion. OSSEOUS STRUCTURES: No significant abnormalities. VISUALIZED UPPER ABDOMEN: Normal. OTHER FINDINGS: None. IMPRESSION: No interval acute cardiopulmonary disease appreciated.
--- NOTE | 2018-11-18 17:45 | CP.PCM.PN ---
Subjective - Date & Time of Evaluation Date of Evaluation: 11/18/18 Time of Evaluation: 15:05 - Subjective Subjective: Now New Complaint. Therapeutic INR. Objective - Vital Signs/Intake and Output Vital Signs (last 24 hours): Temp Pulse Resp BP Pulse Ox 100.6 F H 99 H 20 113/72 99 11/18/18 16:43 11/18/18 16:43 11/18/18 16:43 11/18/18 16:43 11/16/18 22:00 - Medications Medications: Current Medications Al Hydrox/Mg Hydrox/Simethicone (Maalox Plus 30 Ml) 30 ml PO Q4 PRN PRN Reason: Dyspepsia Amoxicillin/Clavulanate Potassium (Augmentin 500 Mg-125 Mg Tab) 1 tab PO Q12 XIN; Protocol Stop: 11/21/18 21:01 Last Admin: 11/18/18 15:09 Dose: 1 tab Aripiprazole (Abilify) 10 mg PO DAILY XIN Diphenhydramine HCl (Benadryl) 50 mg IM Q6 PRN PRN Reason: Extrapyramidal S/S Unable PO Diphenhydramine HCl (Benadryl) 50 mg PO Q6 PRN PRN Reason: Dystonic reaction/ EPS Last Admin: 11/17/18 13:33 Dose: 50 mg Diphenhydramine HCl (Benadryl) 50 mg PO HS PRN PRN Reason: Sleep Doxepin HCl (Sinequan) 10 mg PO HS XIN Haloperidol (Haldol) 5 mg PO Q4 PRN PRN Reason: Agitation Last Admin: 11/17/18 13:33 Dose: 5 mg Haloperidol Lactate (Haldol) 5 mg IM Q4 PRN PRN Reason: Agitation, Unable to Take PO Hydroxyzine HCl (Atarax) 10 mg PO TID PRN PRN Reason: Anxiety Last Admin: 11/16/18 21:59 Dose: 10 mg Ibuprofen (Motrin Tab) 400 mg PO Q6 PRN PRN Reason: for 1-7 pain Last Admin: 11/18/18 15:10 Dose: 400 mg Lorazepam (Ativan) 2 mg IM Q4 PRN PRN Reason: Anxiety/Agitation,Unable PO Lorazepam (Ativan) 1 mg PO Q8 PRN PRN Reason: Anxiety Last Admin: 11/17/18 15:23 Dose: 1 mg Magnesium Hydroxide (Milk Of Magnesia) 30 ml PO HS PRN PRN Reason: Constipation Pantoprazole Sodium (Protonix Ec Tab) 40 mg PO DAILY [facility] Last Admin: 11/18/18 10:00 Dose: Not Given Prazosin HCl (Minipress) 2 mg PO HS [facility] Last Admin: 11/17/18 21:42 Dose: 2 mg Sucralfate (Carafate Oral Susp) 1 gm PO QID [facility] Last Admin: 11/18/18 12:34 Dose: Not Given - Labs Labs: PT 27.6 Seconds (9.8-13.1) H D 11/18/18 07:30 INR 2.4 11/18/18 07:30 Assessment and Plan (1) Protein S deficiency Status: Acute (2) Pulmonary embolism Status: Acute (3) Schizoaffective disorder Status: Acute - Assessment and Plan (Free Text) Plan: C/w Current Care INR Q3days Continue Coumadin 5mg Daily
[2018-11-19] MEDS: Sucralfate 1 gm/10 ml Oral Susp UD PO SCH ×4 (09:14→21:54)
[2018-11-19] MEDS: Pantoprazole 40 mg EC Tab PO SCH (09:14)
--- NOTE | 2018-11-19 15:32 | PCM.PYCHPN ---
Psychiatric Progress Note - Psychiatric Progress Note Patient seen today, length of contact: chart reviewed case discussed with team pt seen Patient Chief Complaint: I get very angry so I want to hurt myself Problems Identified/Issues Discussed: pt evaluated, and also treatment plan discussed with casey saw operator upon pt consent, pt continues to be guarded and evasive, stated he feels unable to express his emotions, resulting in acting out behaviour , hurting self , discussed with pt importance of developing healthier coping skills with stresses other than self harm, discussed importance of therapy on discharge , encouraged to attend groups., pt continues to report early insomnia, and low energy and motivation, discussed adding trazodone, denied active thoughts of self harm on the unit, denied command hallucinations Medication Change: Yes (start trazodone ) Medical Record Reviewed: Yes Mental Status Examination - Cognitive Function Orientation: Person, Place, Situation, Time Memory: Intact Attention: WNL Concentration: WNL Association: WNL Fund of Knowledge: WN - Mood Mood: Depressed - Affect Affect: Constricted, Depressed - Speech Speech: Soft (punching wall plexiglass when pt is known to have hypercollaguability s/p coumadin od) - Formal Thought Process Formal Thought Process: No Impairment - Suicidal Ideation Suicidal Ideation: Yes - Homicidal Ideation Homicidal Ideation: No Goal/Treatment Plan - Goal/Treatment Plan Need for Continued Stay: Severe depression anxiety, Discharge may exacerbated symptoms Progress Toward Problem(s) and Goals/Treatment Plan: abilify 10mg trazodone 300mg qhs Estimated Date of D/C: 11/21/18
--- NOTE | 2018-11-19 23:39 | CP.PCM.PN ---
Subjective - Date & Time of Evaluation Date of Evaluation: 11/19/18 Time of Evaluation: 13:05 - Subjective Subjective: No New complaint. Will give Coumadin 5mg today. Objective - Vital Signs/Intake and Output Vital Signs (last 24 hours): Temp Pulse Resp BP Pulse Ox 98.1 F 81 20 125/72 99 11/19/18 17:22 11/19/18 20:54 11/19/18 17:22 11/19/18 20:54 11/16/18 22:00 - Medications Medications: Current Medications Al Hydrox/Mg Hydrox/Simethicone (Maalox Plus 30 Ml) 30 ml PO Q4 PRN PRN Reason: Dyspepsia Aripiprazole (Abilify) 10 mg PO DAILY XIN Last Admin: 11/19/18 09:14 Dose: 10 mg Diphenhydramine HCl (Benadryl) 50 mg IM Q6 PRN PRN Reason: Extrapyramidal S/S Unable PO Diphenhydramine HCl (Benadryl) 50 mg PO Q6 PRN PRN Reason: Dystonic reaction/ EPS Last Admin: 11/17/18 13:33 Dose: 50 mg Diphenhydramine HCl (Benadryl) 50 mg PO HS PRN PRN Reason: Sleep Last Admin: 11/18/18 22:57 Dose: 50 mg Haloperidol (Haldol) 5 mg PO Q4 PRN PRN Reason: Agitation Last Admin: 11/17/18 13:33 Dose: 5 mg Haloperidol Lactate (Haldol) 5 mg IM Q4 PRN PRN Reason: Agitation, Unable to Take PO Hydroxyzine HCl (Atarax) 10 mg PO TID PRN PRN Reason: Anxiety Last Admin: 11/19/18 21:56 Dose: 10 mg Ibuprofen (Motrin Tab) 400 mg PO Q6 PRN PRN Reason: for 1-7 pain Last Admin: 11/18/18 15:10 Dose: 400 mg Ibuprofen (Motrin Tab) 600 mg PO Q8 PRN PRN Reason: pain 8-10 Last Admin: 11/19/18 09:14 Dose: 600 mg Lorazepam (Ativan) 2 mg IM Q4 PRN PRN Reason: Anxiety/Agitation,Unable PO Lorazepam (Ativan) 1 mg PO Q8 PRN PRN Reason: Anxiety Last Admin: 11/17/18 15:23 Dose: 1 mg Magnesium Hydroxide (Milk Of Magnesia) 30 ml PO HS PRN PRN Reason: Constipation Pantoprazole Sodium (Protonix Ec Tab) 40 mg PO DAILY [facility] Last Admin: 11/19/18 09:14 Dose: 40 mg Prazosin HCl (Minipress) 2 mg PO HS [facility] Last Admin: 11/19/18 21:56 Dose: 2 mg Sucralfate (Carafate Oral Susp) 1 gm PO QID [facility] Last Admin: 11/19/18 21:54 Dose: 1 gm Trazodone HCl (Desyrel) 300 mg PO HS [facility] Last Admin: 11/19/18 21:56 Dose: 300 mg - Labs Labs: PT 27.6 Seconds (9.8-13.1) H D 11/18/18 07:30 INR 2.4 11/18/18 07:30 Assessment and Plan (1) Protein S deficiency Status: Acute (2) Pulmonary embolism Status: Acute (3) Schizoaffective disorder Assessment & Plan: with Acute Psychotic Behaviour Continue Coamdin Will Repeat PT/INR on 11/21/18 Status: Acute
[2018-11-20] MEDS: Sucralfate 1 gm/10 ml Oral Susp UD PO SCH ×4 (08:54→21:43)
[2018-11-20] MEDS: Pantoprazole 40 mg EC Tab PO SCH (08:54)
--- NOTE | 2018-11-20 15:23 | PCM.PYCHPN ---
Psychiatric Progress Note - Psychiatric Progress Note Patient seen today, length of contact: chart reviewed case discussed with team pt seen Patient Chief Complaint: I am feeling better Problems Identified/Issues Discussed: pt evaluated, presenting with brighter affect, reported mood less depressed, able to verbalize health coping skills with stress other than self harm ,improved sleep with starting trazodone, no reported side effects denied any current suicidal or homicidal ideation denied perceptual disturbances d DSM 5 Symptoms Update: borderline personality disorder bipolar disorder Medication Change: No Medical Record Reviewed: Yes Mental Status Examination - Cognitive Function Orientation: Person, Place, Situation, Time Memory: Intact Attention: WNL Concentration: WNL Association: WN Fund of Knowledge: WN - Mood Mood: Depressed - Affect Affect: Constricted, Depressed - Speech Speech: Soft (punching wall plexiglass when pt is known to have hypercollaguability s/p coumadin od) - Formal Thought Process Formal Thought Process: No Impairment - Suicidal Ideation Suicidal Ideation: No - Homicidal Ideation Homicidal Ideation: No Goal/Treatment Plan - Goal/Treatment Plan Need for Continued Stay: Severe depression anxiety, Discharge may exacerbated symptoms Progress Toward Problem(s) and Goals/Treatment Plan: abilify 10mg trazodone 300mg qhs CBT group and supportive therapy Estimated Date of D/C: 11/21/18
[2018-11-20 20:46] VITALS: BP 121/66; PULSE 72; RESP 17; TEMP 98
--- NOTE | 2018-11-20 22:27 | CP.PCM.PN ---
Subjective - Date & Time of Evaluation Date of Evaluation: 11/20/18 Time of Evaluation: 11:05 - Subjective Subjective: Reviewed chart. Will get Coumadin 5mg today. Objective - Vital Signs/Intake and Output Vital Signs (last 24 hours): Temp Pulse Resp BP Pulse Ox 98.0 F 72 17 121/66 99 11/20/18 20:45 11/20/18 20:45 11/20/18 20:45 11/20/18 20:45 11/20/18 20:45 - Medications Medications: Current Medications Al Hydrox/Mg Hydrox/Simethicone (Maalox Plus 30 Ml) 30 ml PO Q4 PRN PRN Reason: Dyspepsia Aripiprazole (Abilify) 10 mg PO DAILY XIN Last Admin: 11/20/18 08:56 Dose: 10 mg Diphenhydramine HCl (Benadryl) 50 mg IM Q6 PRN PRN Reason: Extrapyramidal S/S Unable PO Diphenhydramine HCl (Benadryl) 50 mg PO Q6 PRN PRN Reason: Dystonic reaction/ EPS Last Admin: 11/17/18 13:33 Dose: 50 mg Diphenhydramine HCl (Benadryl) 50 mg PO HS PRN PRN Reason: Sleep Last Admin: 11/20/18 21:42 Dose: 50 mg Haloperidol (Haldol) 5 mg PO Q4 PRN PRN Reason: Agitation Last Admin: 11/17/18 13:33 Dose: 5 mg Haloperidol Lactate (Haldol) 5 mg IM Q4 PRN PRN Reason: Agitation, Unable to Take PO Hydroxyzine HCl (Atarax) 10 mg PO TID PRN PRN Reason: Anxiety Last Admin: 11/19/18 21:56 Dose: 10 mg Ibuprofen (Motrin Tab) 400 mg PO Q6 PRN PRN Reason: for 1-7 pain Last Admin: 11/18/18 15:10 Dose: 400 mg Ibuprofen (Motrin Tab) 600 mg PO Q8 PRN PRN Reason: pain 8-10 Last Admin: 11/19/18 09:14 Dose: 600 mg Lorazepam (Ativan) 2 mg IM Q4 PRN PRN Reason: Anxiety/Agitation,Unable PO Lorazepam (Ativan) 1 mg PO Q8 PRN PRN Reason: Anxiety Last Admin: 11/17/18 15:23 Dose: 1 mg Magnesium Hydroxide (Milk Of Magnesia) 30 ml PO HS PRN PRN Reason: Constipation Pantoprazole Sodium (Protonix Ec Tab) 40 mg PO DAILY [facility] Last Admin: 11/20/18 08:54 Dose: 40 mg Prazosin HCl (Minipress) 2 mg PO HS [facility] Last Admin: 11/20/18 21:43 Dose: 2 mg Sucralfate (Carafate Oral Susp) 1 gm PO QID [facility] Last Admin: 11/20/18 21:43 Dose: 1 gm Trazodone HCl (Desyrel) 300 mg PO HS [facility] Last Admin: 11/20/18 21:42 Dose: 300 mg - Labs Labs: PT 27.6 Seconds (9.8-13.1) H D 11/18/18 07:30 INR 2.4 11/18/18 07:30 Assessment and Plan (1) Protein S deficiency Status: Acute (2) Pulmonary embolism Status: Acute (3) Schizoaffective disorder Status: Acute - Assessment and Plan (Free Text) Plan: Continue Rx as per Psych recommendation Coumadin 5mg Today PT/INR in am
[2018-11-21 07:01] LABS: INR 2.3; PROTHROMBIN TIME 26.3 Seconds (9.8-13.1)
[2018-11-21] MEDS: Pantoprazole 40 mg EC Tab PO SCH (09:14)
[2018-11-21] MEDS: Sucralfate 1 gm/10 ml Oral Susp UD PO SCH (09:14)
--- NOTE | 2018-11-21 14:05 | PCM.PYCHDC ---
Mental Status Examination - Mental Status Examination Orientation: Person, Place, Situation Memory: Intact Mood: Neutral Affect: Broad Speech: Appropriate Attention: WNL Concentration: WNL Association: WNL Fund of Knowledge: WNL Formal Thought Process: No Impairment Description of patient's judgement and insight: partial insight, fair judgment Psychotic Thoughts and Behaviors: pt denied psychotic symptoms, non elicited Suicidal Ideation: No Current Homicidal Ideation?: No Discharge Summary - Discharge Note Reason for Hospitalization: 33 years old male with hx of F2M (Transgender change), Protein S deficiency with multiple PE and DVT on Coumadin, admitted s/p intentional overdose of Coumadin as a suicide attempt, while intoxicated on 1 bottle of Bailey. Patient reports worsening depression, anxiety, feeling of hopelessness, continued intermittent suicidal ideations, sleep/appetite disturbances. Denies AH/VH. +Cocaine use 1 week ago. A + O x 3. Laboratory Data: Abnormal Lab Results 11/21/18 06:35 PT 26.3 H INR 2.3 Consultations:: List each consultation separately and include: 1. Reason for request. 2. Findings. 3. Follow-up Summary of Hospital Course include:: 1. Description of specific treatment plan utilized for patients during their course of treatmen. 2. Summarize the time- course for resolution of acute symptoms and/or regressed behaviors. 3. Describe issues identified and worked on during hospitalization. 4. Describe medication utilized. 5. Describe medical problems identified and treated. 6. Reassessment of suicide risk Summary of Hospital Course: pt on admission was depressed, guarded, angry irritable with episodes of poor impulse control pt was started on abilify, needed encouragement for medication compliance, abilify was gradually increased to 10mg daily pt gradually became less gurded, attended groups, no reported side effects of medications meeting was held with patient case manager upon pt consent CBT group, motivational and supportive therapy was provided on discharge, pt mental status was stable, denied any current suicidal or homicidal ideation, denied perceptual disturbances follow up was arranged by social media strategist at [facility], including individual therapy - Diagnosis (1) Borderline personality disorder Status: Acute - Final Diagnosis (DSM 5) Condition upon Discharge: GOOD DSM 5: bipolar disorder borderline personality disorder Disposition: HOME/ ROUTINE Follow-up Treatment Plan: abilify 10mg trazodone 300mg qhs CBT group and supportive therapy Prescriptions/Medication Reconciliation: ARIPiprazole [Abilify] 10 mg PO DAILY 30 Days #30 tab Prazosin HCl [Minipress] 2 mg PO HS 30 Days #60 cap traZODone [Desyrel] 300 mg PO HS 30 Days #90 tab - Antipsychotic Medications Pt discharged on 2 or more routine antipsychotic medications: No
--- NOTE | 2018-11-21 22:22 | CP.PCM.PN ---
Subjective - Date & Time of Evaluation Date of Evaluation: 11/21/18 Time of Evaluation: 12:00 - Subjective Subjective: Patient is discharged today. INR is therapeutic today. Patient can continue 5 mg Coumadin daily and PT/INR 1 week PCP. Endorsed social service assistant to be CHIEF DRAFTER, and nurse so that patient can be informed. Objective - Vital Signs/Intake and Output Vital Signs (last 24 hours): Temp Pulse Resp BP Pulse Ox 98.0 F 72 17 121/66 99 11/20/18 20:45 11/20/18 20:45 11/20/18 20:45 11/20/18 20:45 11/20/18 20:45 - Labs Labs: PT 26.3 Seconds (9.8-13.1) H 11/21/18 06:35 INR 2.3 11/21/18 06:35 Assessment and Plan (1) Protein S deficiency Status: Acute (2) Pulmonary embolism Status: Acute (3) Schizoaffective disorder Status: Acute - Assessment and Plan (Free Text) Assessment: Has improved Therapeutic INR for the last 4 days, and patient currently on Coumadin 5 mg p.o. daily INR weekly with PCP.
== END 2018-11-21 11:20 | disposition home or self-care (01) | DRG 430 ==
LOC: H.PSYCH 16:42
PROVIDERS: ADMIT Psychiatry & Neurology Psychiatry; ATTEND Psychiatry & Neurology Psychiatry
PROC: GZHZZZZ Group Psychotherapy (ICD-10-PCS; principal; 2018-11-15)
PROC: GZ58ZZZ Individual Psychotherapy, Cognitive-Behavioral (ICD-10-PCS; 2018-11-15)
PROC: GZ56ZZZ Individual Psychotherapy, Supportive (ICD-10-PCS; 2018-11-15)
PROC: HZ57ZZZ Individual Psychotherapy for Substance Abuse Treatment, Motivational Enhancement (ICD-10-PCS; 2018-11-15)
DX: F31.9 Bipolar disorder, unspecified (principal); D68.59 Other primary thrombophilia; F60.3 Borderline personality disorder; F64.9 Gender identity disorder, unspecified; Z86.711 Personal history of pulmonary embolism; Z86.718 Personal history of other venous thrombosis and embolism; Z79.01 Long term (current) use of anticoagulants; E66.9 Obesity, unspecified; Z91.5 Personal history of self-harm; R45.851 Suicidal ideations; F12.90 Cannabis use, unspecified, uncomplicated; Z88.6 Allergy status to analgesic agent; Z88.5 Allergy status to narcotic agent; Z88.2 Allergy status to sulfonamides; Z68.41 Body mass index [BMI] 40.0-44.9, adult

== ENCOUNTER 2019-03-19 14:09 | Inpatient (IN) | payer MEDICAID ==
[2019-03-19 14:09] VITALS: BMI 44.8
--- NOTE | 2019-03-19 15:20 | ED PDOC ---
HPI: Psych/Substance Abuse Time Seen by Provider: 03/19/19 15:02 Chief Complaint (Nursing): Psychiatric Evaluation Additional Complaint(s): SI 30 7.5mg coumadin at 9am Past Medical History Vital Signs: Last Vital Signs Temp Pulse Resp BP Pulse Ox 98 03/19/19 14:17 - Medical History PMH: Anxiety, Asthma, Depression (SINCE CHILDHOOD), Deep Vein Thrombosis, Pulmonary Embolism Denies: Anemia, Diabetes, Hepatitis, HIV, HTN, Chronic Kidney Disease, Seizures, Sexually Transmitted Disease - Surgical History Surgical History: Tonsillectomy - Family History Family History: States: Unknown Family Hx - Home Medications Home Medications: Ambulatory Orders Medication Instructions Recorded Testosterone Cypionate 0.5 ml IM TH 09/16/18 [Depo-Testosterone Inj] Temazepam [Restoril] 15 mg PO HS 03/19/19 Warfarin [Coumadin] 7.5 mg PO DAILY 03/19/19 - Allergies Allergies/Adverse Reactions: Allergies Allergy/AdvReac Type Severity Reaction Status Date / Time fentanyl Allergy SHORTNESS Verified 03/19/19 14:17 OF BREATH sulfamethoxazole Allergy SHORTNESS Verified 03/19/19 14:17 [From Bactrim] OF BREATH trimethoprim [From Bactrim] Allergy SHORTNESS Verified 03/19/19 14:17 OF BREATH acetaminophen [From Percocet] AdvReac VOMITING Verified 03/19/19 14:17 oxycodone [From Percocet] AdvReac VOMITING Verified 03/19/19 14:17 - Laboratory Results Result Diagrams: 03/19/19 18:45 03/19/19 18:45 - ECG O2 Sat by Pulse Oximetry: 98 Medical Decision Making Medical Decision Makin - Poison Control Contacted. Discussed with Hui. Delayed onset of symptoms. Monitor. No indication for vitamin K until symptoms or increase in INR. FFP for bleeding. INR > 10 and no bleeding then Oral vitamin K. Disposition - Disposition Condition: FAIR Forms: [employer] (Pashto)
[2019-03-19 17:38] LABS: INR 1.1
[2019-03-19 17:41] LABS: PARTIAL THROMBOPLASTIN TIME 26.1 Seconds (25.6-37.1)
[2019-03-19 17:50] LABS: ACETAMINOPHEN < 10.0 ug/ml (10.0-30.0); SALICYLATE < 1.0 mg/dl
[2019-03-19 18:51] LABS: BASO % 0.5 % (0.0-2.0); EOS # 0.3 K/uL (0.0-0.7); EOS % 2.8 % (0.0-4.0); HEMOGLOBIN 13.5 g/dL (12.0-18.0); LYMPH # 1.9 K/uL (1.0-4.3); LYMPH % 21.3 % (20.0-40.0); MEAN CELL VOLUME 80.6 fl (80.0-94.0); MEAN CORPUSCULAR HEMOGLOBIN 25.8 pg (27.0-31.0); MEAN PLATELET VOLUME 8.2 fl (7.2-11.7); MONO # 0.6 K/uL (0.0-0.8); NEUT # 6.4 K/uL (1.8-7.0); NEUT % 69.4 % (50.0-75.0); NRBC % 0.1 % (0.0-0.0); RBC 5.22 Mil/uL (4.40-5.90); RED CELL DISTRIBUTION WIDTH 15.4 % (11.5-14.5); WHITE BLOOD COUNT 9.2 K/uL (4.8-10.8)
[2019-03-19 19:05] LABS: ALB/GLOB RATIO 1.2 (1.0-2.1); ALBUMIN 4.8 g/dL (3.5-5.0); ALT/SGPT 18 U/L (21-72); AST/SGOT 28 U/L (17-59); BLOOD UREA NITROGEN 12 mg/dl (9-20); CALCIUM 9.7 mg/dL (8.4-10.2); GFR NON-AFRICAN AMERICAN > 60
[2019-03-19 23:12] LABS: SQUAMOUS EPITHIAL < 1 /hpf (0-5); URINE BACTERIA RARE (<OCC); URINE BILIRUBIN NEGATIVE (NEGATIVE); URINE BLOOD NEGATIVE (NEGATIVE); URINE CLARITY SLIGHTY-CLOUDY (Clear); URINE COLOR YELLOW (YELLOW); URINE GLUCOSE (UA) NEG (NEGATIVE); URINE LEUKOCYTE ESTERASE TRACE Leu/uL (Negative); URINE PROTEIN NEGATIVE (NEGATIVE); URINE UROBILINOGEN 0.2-1.0 mg/dL (0.2-1.0)
[2019-03-19 23:26] LABS: BARBITURATES, UR NEGATIVE (NEGATIVE); BENZODIAZEPINES, UR POSITIVE (NEGATIVE); OPIATES, UR NEGATIVE (NEGATIVE); PHENCYCLIDINE, UR NEGATIVE (NEGATIVE)
[2019-03-20] MEDS ORDERED: Enoxaparin 60 mg Syringe SC SCH (00:30)
[2019-03-20] MEDS ORDERED: Enoxaparin 40 mg Syringe SC SCH (00:37)
[2019-03-20 06:47] LABS: BASO % 0.5 % (0.0-2.0); EOS # 0.3 K/uL (0.0-0.7); EOS % 3.6 % (0.0-4.0); HEMOGLOBIN 12.2 g/dL (12.0-18.0); LYMPH # 2.4 K/uL (1.0-4.3); LYMPH % 30.6 % (20.0-40.0); MEAN CELL VOLUME 80.1 fl (80.0-94.0); MEAN CORPUSCULAR HEMOGLOBIN 25.2 pg (27.0-31.0); MEAN CORPUSCULAR HGB CONC 31.5 g/dL (33.0-37.0); MEAN PLATELET VOLUME 7.6 fl (7.2-11.7); MONO # 0.5 K/uL (0.0-0.8); MONO % 6.9 % (0.0-10.0); NEUT # 4.6 K/uL (1.8-7.0); NEUT % 58.4 % (50.0-75.0); NRBC % 0.1 % (0.0-0.0); RBC 4.84 Mil/uL (4.40-5.90); RED CELL DISTRIBUTION WIDTH 15.1 % (11.5-14.5); WHITE BLOOD COUNT 7.9 K/uL (4.8-10.8)
[2019-03-20 07:00] LABS: ALB/GLOB RATIO 1.2 (1.0-2.1); ALBUMIN 4.1 g/dL (3.5-5.0); ALT/SGPT 21 U/L (21-72); AST/SGOT 23 U/L (17-59); BLOOD UREA NITROGEN 11 mg/dl (9-20); GFR NON-AFRICAN AMERICAN > 60
[2019-03-20 07:24] LABS: INR 2.3; PROTHROMBIN TIME 26.3 Seconds (9.8-13.1)
[2019-03-20 07:27] LABS: PARTIAL THROMBOPLASTIN TIME 38.3 Seconds (25.6-37.1)
--- NOTE | 2019-03-20 09:07 | CP.PCM.HP ---
History of Present Illness - History of Present Illness History of Present Illness: This is 33 y/o transgender with PMD of Anxiety, depression, protein S deficiency, Multiple PE/DVT and Transgender change(M2F) admitted for evaluation and management of coumadin overdose and suicidal attempt. Patient reports feeling depressed yesterday morning and ended up taking 30 Tabs of Cumadin 7.5mg. Denies any n/v/d/f, abdominal pain, chest pain, SOB or dizziness. 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 FHx: States: No known family hx Allergies: Fentanyl; Bactrim; Oxycodone Present on Admission - Present on Admission Any Indicators Present on Admission: No History of DVT/PE: Yes Review of Systems - Constitutional Constitutional: absent: Excessive Sweating, Fever, Headache, Weakness - EENT Eyes: absent: Change in Vision Ears: absent: Dizziness Nose/Mouth/Throat: absent: Nasal Congestion - Cardiovascular Cardiovascular: absent: Chest Pain - Respiratory Respiratory: absent: Cough, Dyspnea, Hemoptysis - Gastrointestinal Gastrointestinal: absent: Abdominal Pain - Genitourinary Genitourinary: absent: Change in Urinary Stream, Dysuria - Musculoskeletal Musculoskeletal: absent: Back Pain - Neurological Neurological: absent: Abnormal Hearing, Syncope, Tingling, Tremor, Vertigo, Weakness - Psychiatric Psychiatric: Depression - Hematologic/Lymphatic Hematologic: absent: Easy Bleeding, Easy Bruising Past Patient History - Past Medical History & Family History Past Medical History?: Yes - Past Social History Smoking Status: Never Smoked - CARDIAC Hx Hypertension: No - PULMONARY Hx Asthma: Yes Hx Pulmonary Embolism: Yes - NEUROLOGICAL Hx Seizures: No - HEENT Hx HEENT Problems: No - RENAL Hx Chronic Kidney Disease: No - ENDOCRINE/METABOLIC Hx Endocrine Disorders: No - HEMATOLOGICAL/ONCOLOGICAL Hx Anemia: No Hx Human Immunodeficiency Virus (HIV): No - INTEGUMENTARY Hx Dermatological Problems: No - MUSCULOSKELETAL/RHEUMATOLOGICAL Hx Musculoskeletal Disorders: No Hx Falls: No - GASTROINTESTINAL Hx Gastrointestinal Disorders: No - GENITOURINARY/GYNECOLOGICAL Hx Sexually Transmitted Disorders: No - PSYCHIATRIC Hx Anxiety: Yes Hx Depression: Yes (SINCE CHILDHOOD) - SURGICAL HISTORY Hx Tonsillectomy: Yes - ANESTHESIA Hx Anesthesia: Yes Hx Anesthesia Reactions: Yes (Fentanyl (hives)) Hx Malignant Hyperthermia: No Meds Allergies/Adverse Reactions: Allergies Allergy/AdvReac Type Severity Reaction Status Date / Time fentanyl Allergy SHORTNESS Verified 03/19/19 14:17 OF BREATH sulfamethoxazole Allergy SHORTNESS Verified 03/19/19 14:17 [From Bactrim] OF BREATH trimethoprim [From Bactrim] Allergy SHORTNESS Verified 03/19/19 14:17 OF BREATH acetaminophen [From Percocet] AdvReac VOMITING Verified 03/19/19 14:17 oxycodone [From Percocet] AdvReac VOMITING Verified 03/19/19 14:17 Physical Exam - Constitutional Appears: No Acute Distress - Head Exam Head Exam: NORMAL INSPECTION - Eye Exam Eye Exam: Normal appearance - ENT Exam ENT Exam: Mucous Membranes Moist - Neck Exam Neck exam: Positive for: Normal Inspection - Respiratory Exam Respiratory Exam: Clear to Auscultation Bilateral, NORMAL BREATHING PATTERN. absent: Rhonchi, Wheezes - Cardiovascular Exam Cardiovascular Exam: REGULAR RHYTHM, +S1, +S2 - GI/Abdominal Exam GI & Abdominal Exam: Normal Bowel Sounds, Soft. absent: Tenderness - Extremities Exam Extremities exam: Positive for: normal inspection - Back Exam Back exam: NORMAL INSPECTION. absent: CVA tenderness (L), CVA tenderness (R) - Neurological Exam Neurological exam: Alert, CN II-XII Intact, Oriented x3 - Psychiatric Exam Psychiatric exam: Depressed - Skin Skin Exam: Dry, Intact, Normal Color, Warm Results - Vital Signs Recent Vital Signs: Last Vital Signs Temp 98.6 F 03/20/19 08:04 Pulse 105 H 03/20/19 08:04 Resp 19 03/20/19 08:04 BP 112/70 03/20/19 08:04 Pulse Ox 97 03/20/19 08:04 - Labs Result Diagrams: 03/20/19 06:20 03/20/19 06:20 Labs: Laboratory Results - last 24 hr 03/19/19 03/19/19 03/19/19 17:27 17:27 18:45 WBC 9.2 RBC 5.22 Hgb 13.5 Hct 42.1 MCV 80.6 MCH 25.8 L MCHC 32.0 L RDW 15.4 H Plt Count 411 H D MPV 8.2 Neut % (Auto) 69.4 Lymph % (Auto) 21.3 [place] % (Auto) 6.0 Eos % (Auto) 2.8 Baso % (Auto) 0.5 Neut # (Auto) 6.4 Lymph # (Auto) 1.9 [place] # (Auto) 0.6 Eos # (Auto) 0.3 Baso # (Auto) 0.0 PT 13.0 INR 1.1 APTT 26.1 Sodium Potassium Chloride Carbon Dioxide Anion Gap BUN Creatinine Est GFR ( Amer) Est GFR (Non-Af Amer) Random Glucose Calcium Total Bilirubin AST ALT Alkaline Phosphatase Total Protein Albumin Globulin Albumin/Globulin Ratio Urine Color Urine Clarity Urine pH Ur Specific [place] Urine Protein Urine Glucose (UA) Urine Ketones Urine Blood Urine Nitrate Urine Bilirubin Urine Urobilinogen Ur Leukocyte Esterase Urine Microscopic WBC Ur Squamous Epith Cells Urine Bacteria Salicylates < 1.0 Urine Opiates Screen Urine Methadone Screen Acetaminophen < 10.0 L Ur Barbiturates Screen Ur Phencyclidine Scrn Ur Amphetamines Screen U Benzodiazepines Scrn U Oth Cocaine Metabols U Cannabinoids Screen 03/19/19 03/19/19 03/19/19 18:45 23:00 23:00 WBC RBC Hgb Hct MCV MCH MCHC RDW Plt Count MPV Neut % (Auto) Lymph % (Auto) [place] % (Auto) Eos % (Auto) Baso % (Auto) Neut # (Auto) Lymph # (Auto) [place] # (Auto) Eos # (Auto) Baso # (Auto) PT INR APTT Sodium 140 Potassium 4.2 Chloride 101 Carbon Dioxide 23 Anion Gap 20 BUN 12 Creatinine 1.1 Est GFR ( Amer) > 60 Est GFR (Non-Af Amer) > 60 Random Glucose 117 H Calcium 9.7 Total Bilirubin 0.5 AST 28 ALT 18 L D Alkaline Phosphatase 73 Total Protein 9.0 H Albumin 4.8 Globulin 4.2 H Albumin/Globulin Ratio 1.2 Urine Color Yellow Urine Clarity Slighty-cloudy Urine pH 5.0 Ur Specific [place] 1.024 Urine Protein Negative Urine Glucose (UA) Neg Urine Ketones Negative Urine Blood Negative Urine Nitrate Negative Urine Bilirubin Negative Urine Urobilinogen 0.2-1.0 Ur Leukocyte Esterase Trace Urine Microscopic WBC 10 H Ur Squamous Epith Cells < 1 Urine Bacteria Rare Salicylates Urine Opiates Screen Negative Urine Methadone Screen Negative Acetaminophen Ur Barbiturates Screen Negative Ur Phencyclidine Scrn Negative Ur Amphetamines Screen Negative U Benzodiazepines Scrn Positive U Oth Cocaine Metabols Positive H U Cannabinoids Screen Negative 03/20/19 03/20/19 03/20/19 06:20 06:20 06:20 WBC 7.9 RBC 4.84 Hgb 12.2 Hct 38.8 MCV 80.1 MCH 25.2 L MCHC 31.5 L RDW 15.1 H Plt Count 341 MPV 7.6 Neut % (Auto) 58.4 Lymph % (Auto) 30.6 [place] % (Auto) 6.9 Eos % (Auto) 3.6 Baso % (Auto) 0.5 Neut # (Auto) 4.6 Lymph # (Auto) 2.4 [place] # (Auto) 0.5 Eos # (Auto) 0.3 Baso # (Auto) 0.0 PT 26.3 H D INR 2.3 APTT 38.3 H Sodium 138 Potassium 4.2 Chloride 101 Carbon Dioxide 28 Anion Gap 13 BUN 11 Creatinine 1.1 Est GFR ( Amer) > 60 Est GFR (Non-Af Amer) > 60 Random Glucose 105 Calcium 9.0 Total Bilirubin 0.2 AST 23 ALT 21 Alkaline Phosphatase 71 Total Protein 7.6 Albumin 4.1 Globulin 3.5 Albumin/Globulin Ratio 1.2 Urine Color Urine Clarity Urine pH Ur Specific [place] Urine Protein Urine Glucose (UA) Urine Ketones Urine Blood Urine Nitrate Urine Bilirubin Urine Urobilinogen Ur Leukocyte Esterase Urine Microscopic WBC Ur Squamous Epith Cells Urine Bacteria Salicylates Urine Opiates Screen Urine Methadone Screen Acetaminophen Ur Barbiturates Screen Ur Phencyclidine Scrn Ur Amphetamines Screen U Benzodiazepines Scrn U Oth Cocaine Metabols U Cannabinoids Screen Assessment & Plan - Assessment and Plan (Free Text) Assessment: A/P: 33 y/o transgender with PMD of Anxiety, depression, protein S deficiency, Multiple PE/DVT and Transgender change(M2F) admitted for evaluation and management of coumadin overdose and suicidal attempt. Coumadin Overdose/ 30 tabs of 7.5mg - Poison Control informed - No indication for vitamin K until symptoms or increase in INR - INR > 10 and no bleeding then Oral vitamin K/ FFP for bleeding - Poison control this morning aware of Coag - Order Coag BID Suicidal attempt/Depression - Consult psych, f/u recommendations DVT ppx: SCD for now due to increases in Coag Patient seen with Dr. Arreaga, agrees with plan
[2019-03-20 10:55] LABS: INR 2.8; PROTHROMBIN TIME 31.5 Seconds (9.8-13.1)
[2019-03-20 10:56] LABS: PARTIAL THROMBOPLASTIN TIME 38.9 Seconds (25.6-37.1)
--- NOTE | 2019-03-20 12:36 | CP.PCM.CON ---
History of Present Illness - History of Present Illness History of Present Illness: pt is a 34 ys old male with previous psychiatric diagnosis of depression and borderline personality isorder brought to ER after suicidal attempt by overdose on Coumadin, pt reported has not been compliant with follow up visits, became i ncreasingly depressed feeling lonely helpless and worthless, he also relapsed on cocaine , pt felt his life has no meaning and attempted suicide by overdose on evaluation pt with partial eye contact depressed mood and affect , thought form coherent , passive suicidal ideation without current active plan denied perceptual disturbances, denied homicidal ideation, alert awake , oriented x3 partial insight and poor judgment Past Patient History - Past Medical History & Family History Past Medical History?: Yes - Past Social History Smoking Status: Never Smoked - CARDIAC Hx Cardiac Disorders: No - PULMONARY Hx Respiratory Disorders: No - NEUROLOGICAL Hx Neurological Disorder: No - HEENT Hx HEENT Problems: No - RENAL Hx Chronic Kidney Disease: No - ENDOCRINE/METABOLIC Hx Endocrine Disorders: No - HEMATOLOGICAL/ONCOLOGICAL Hx Blood Disorders: Yes (protein s deficiency,PE,DVT) - INTEGUMENTARY Hx Dermatological Problems: No - MUSCULOSKELETAL/RHEUMATOLOGICAL Hx Musculoskeletal Disorders: No - GASTROINTESTINAL Hx Gastrointestinal Disorders: No - GENITOURINARY/GYNECOLOGICAL Hx Genitourinary Disorders: No - PSYCHIATRIC Hx Psychophysiologic Disorder: Yes (ANXIETY, DEPRESSION) - SURGICAL HISTORY Hx Tonsillectomy: Yes - ANESTHESIA Hx Anesthesia: Yes Hx Anesthesia Reactions: Yes (Fentanyl (hives)) Hx Malignant Hyperthermia: No Meds Allergies/Adverse Reactions: Allergies Allergy/AdvReac Type Severity Reaction Status Date / Time fentanyl Allergy SHORTNESS Verified 03/19/19 14:17 OF BREATH sulfamethoxazole Allergy SHORTNESS Verified 03/19/19 14:17 [From Bactrim] OF BREATH trimethoprim [From Bactrim] Allergy SHORTNESS Verified 03/19/19 14:17 OF BREATH acetaminophen [From Percocet] AdvReac VOMITING Verified 03/19/19 14:17 oxycodone [From Percocet] AdvReac VOMITING Verified 03/19/19 14:17 - Medications Medications: Current Medications Home Med (Testosterone Cypionate [Depo-Testosterone Inj]) 0.5 ml IM TH XIN Ibuprofen (Motrin Tab) 400 mg PO Q6 PRN PRN Reason: Pain, moderate (4-7) Ibuprofen (Motrin Tab) 400 mg PO Q6 PRN PRN Reason: Fever >100.4 F Ondansetron HCl (Zofran Inj) 4 mg IVP Q6 PRN PRN Reason: Nausea/Vomiting Temazepam (Restoril) 15 mg PO HS XIN Results - Vital Signs Recent Vital Signs: Last Vital Signs Temp 98.4 F 03/20/19 12:22 Pulse 83 03/20/19 12:22 Resp 18 03/20/19 12:22 BP 109/73 03/20/19 12:22 Pulse Ox 97 03/20/19 11:11 - Labs Result Diagrams: 03/20/19 06:20 03/20/19 06:20 Labs: Laboratory Results - last 24 hr 03/19/19 03/19/19 03/19/19 17:27 17:27 18:45 WBC 9.2 RBC 5.22 Hgb 13.5 Hct 42.1 MCV 80.6 MCH 25.8 L MCHC 32.0 L RDW 15.4 H Plt Count 411 H D MPV 8.2 Neut % (Auto) 69.4 Lymph % (Auto) 21.3 [place] % (Auto) 6.0 Eos % (Auto) 2.8 Baso % (Auto) 0.5 Neut # (Auto) 6.4 Lymph # (Auto) 1.9 [place] # (Auto) 0.6 Eos # (Auto) 0.3 Baso # (Auto) 0.0 PT 13.0 INR 1.1 APTT 26.1 Sodium Potassium Chloride Carbon Dioxide Anion Gap BUN Creatinine Est GFR ( Amer) Est GFR (Non-Af Amer) Random Glucose Calcium Total Bilirubin AST ALT Alkaline Phosphatase Total Protein Albumin Globulin Albumin/Globulin Ratio Urine Color Urine Clarity Urine pH Ur Specific [place] Urine Protein Urine Glucose (UA) Urine Ketones Urine Blood Urine Nitrate Urine Bilirubin Urine Urobilinogen Ur Leukocyte Esterase Urine Microscopic WBC Ur Squamous Epith Cells Urine Bacteria Salicylates < 1.0 Urine Opiates Screen Urine Methadone Screen Acetaminophen < 10.0 L Ur Barbiturates Screen Ur Phencyclidine Scrn Ur Amphetamines Screen U Benzodiazepines Scrn U Oth Cocaine Metabols U Cannabinoids Screen 03/19/19 03/19/19 03/19/19 18:45 23:00 23:00 WBC RBC Hgb Hct MCV MCH MCHC RDW Plt Count MPV Neut % (Auto) Lymph % (Auto) [place] % (Auto) Eos % (Auto) Baso % (Auto) Neut # (Auto) Lymph # (Auto) [place] # (Auto) Eos # (Auto) Baso # (Auto) PT INR APTT Sodium 140 Potassium 4.2 Chloride 101 Carbon Dioxide 23 Anion Gap 20 BUN 12 Creatinine 1.1 Est GFR ( Amer) > 60 Est GFR (Non-Af Amer) > 60 Random Glucose 117 H Calcium 9.7 Total Bilirubin 0.5 AST 28 ALT 18 L D Alkaline Phosphatase 73 Total Protein 9.0 H Albumin 4.8 Globulin 4.2 H Albumin/Globulin Ratio 1.2 Urine Color Yellow Urine Clarity Slighty-cloudy Urine pH 5.0 Ur Specific [place] 1.024 Urine Protein Negative Urine Glucose (UA) Neg Urine Ketones Negative Urine Blood Negative Urine Nitrate Negative Urine Bilirubin Negative Urine Urobilinogen 0.2-1.0 Ur Leukocyte Esterase Trace Urine Microscopic WBC 10 H Ur Squamous Epith Cells < 1 Urine Bacteria Rare Salicylates Urine Opiates Screen Negative Urine Methadone Screen Negative Acetaminophen Ur Barbiturates Screen Negative Ur Phencyclidine Scrn Negative Ur Amphetamines Screen Negative U Benzodiazepines Scrn Positive U Oth Cocaine Metabols Positive H U Cannabinoids Screen Negative 03/20/19 03/20/19 03/20/19 06:20 06:20 06:20 WBC 7.9 RBC 4.84 Hgb 12.2 Hct 38.8 MCV 80.1 MCH 25.2 L MCHC 31.5 L RDW 15.1 H Plt Count 341 MPV 7.6 Neut % (Auto) 58.4 Lymph % (Auto) 30.6 [place] % (Auto) 6.9 Eos % (Auto) 3.6 Baso % (Auto) 0.5 Neut # (Auto) 4.6 Lymph # (Auto) 2.4 [place] # (Auto) 0.5 Eos # (Auto) 0.3 Baso # (Auto) 0.0 PT 26.3 H D INR 2.3 APTT 38.3 H Sodium 138 Potassium 4.2 Chloride 101 Carbon Dioxide 28 Anion Gap 13 BUN 11 Creatinine 1.1 Est GFR ( Amer) > 60 Est GFR (Non-Af Amer) > 60 Random Glucose 105 Calcium 9.0 Total Bilirubin 0.2 AST 23 ALT 21 Alkaline Phosphatase 71 Total Protein 7.6 Albumin 4.1 Globulin 3.5 Albumin/Globulin Ratio 1.2 Urine Color Urine Clarity Urine pH Ur Specific [place] Urine Protein Urine Glucose (UA) Urine Ketones Urine Blood Urine Nitrate Urine Bilirubin Urine Urobilinogen Ur Leukocyte Esterase Urine Microscopic WBC Ur Squamous Epith Cells Urine Bacteria Salicylates Urine Opiates Screen Urine Methadone Screen Acetaminophen Ur Barbiturates Screen Ur Phencyclidine Scrn Ur Amphetamines Screen U Benzodiazepines Scrn U Oth Cocaine Metabols U Cannabinoids Screen 03/20/19 10:20 WBC RBC Hgb Hct MCV MCH MCHC RDW Plt Count MPV Neut % (Auto) Lymph % (Auto) [place] % (Auto) Eos % (Auto) Baso % (Auto) Neut # (Auto) Lymph # (Auto) [place] # (Auto) Eos # (Auto) Baso # (Auto) PT 31.5 H D INR 2.8 APTT 38.9 H Sodium Potassium Chloride Carbon Dioxide Anion Gap BUN Creatinine Est GFR ( Amer) Est GFR (Non-Af Amer) Random Glucose Calcium Total Bilirubin AST ALT Alkaline Phosphatase Total Protein Albumin Globulin Albumin/Globulin Ratio Urine Color Urine Clarity Urine pH Ur Specific [place] Urine Protein Urine Glucose (UA) Urine Ketones Urine Blood Urine Nitrate Urine Bilirubin Urine Urobilinogen Ur Leukocyte Esterase Urine Microscopic WBC Ur Squamous Epith Cells Urine Bacteria Salicylates Urine Opiates Screen Urine Methadone Screen Acetaminophen Ur Barbiturates Screen Ur Phencyclidine Scrn Ur Amphetamines Screen U Benzodiazepines Scrn U Oth Cocaine Metabols U Cannabinoids Screen Assessment & Plan - Assessment and Plan (Free Text) Assessment: borderline personality disorder bipolar disorder depressed cocaine abuse Plan: pt needs admission to psychiatry for further stabilization pt agreed for voluntary admission upon medical clearance
--- NOTE | 2019-03-20 14:28 | CARD ---
APPROVED REPORT Date of service: 03/19/2019 EKG Measurement Heart [id number] <Conclusion> Normal sinus rhythm Nonspecific ST and T wave abnormality Abnormal ECG
[2019-03-20 19:21] LABS: PARTIAL THROMBOPLASTIN TIME 37.5 Seconds (25.6-37.1)
[2019-03-20 19:26] LABS: HEMOGLOBIN 12.3 g/dL (12.0-18.0); MEAN CELL VOLUME 80.1 fl (80.0-94.0); MEAN CORPUSCULAR HEMOGLOBIN 25.2 pg (27.0-31.0); MEAN CORPUSCULAR HGB CONC 31.4 g/dL (33.0-37.0); RBC 4.87 Mil/uL (4.40-5.90); RED CELL DISTRIBUTION WIDTH 15.1 % (11.5-14.5)
[2019-03-20 21:20] LABS: INR 4.4; PROTHROMBIN TIME 49.7 Seconds (9.8-13.1)
[2019-03-21 02:49] LABS: HEMOGLOBIN 11.7 g/dL (12.0-18.0); MEAN CELL VOLUME 80.2 fl (80.0-94.0); MEAN CORPUSCULAR HEMOGLOBIN 24.8 pg (27.0-31.0); RBC 4.72 Mil/uL (4.40-5.90); RED CELL DISTRIBUTION WIDTH 15.3 % (11.5-14.5); WHITE BLOOD COUNT 8.4 K/uL (4.8-10.8)
[2019-03-21 02:54] LABS: PARTIAL THROMBOPLASTIN TIME 35.1 Seconds (25.6-37.1)
[2019-03-21 03:01] LABS: INR 6.3
[2019-03-21 03:02] LABS: PROTHROMBIN TIME 72.2 Seconds (9.8-13.1)
[2019-03-21] MEDS ORDERED: Phytonadione 10 mg/ml Inj (Adult) SC ONE ×2 (08:10→14:00)
[2019-03-21 10:45] LABS: HEMOGLOBIN 11.9 g/dL (12.0-18.0); MEAN CELL VOLUME 80.2 fl (80.0-94.0); MEAN CORPUSCULAR HEMOGLOBIN 25.3 pg (27.0-31.0); MEAN CORPUSCULAR HGB CONC 31.6 g/dL (33.0-37.0); RBC 4.7 Mil/uL (4.40-5.90); RED CELL DISTRIBUTION WIDTH 15.1 % (11.5-14.5); WHITE BLOOD COUNT 7.3 K/uL (4.8-10.8)
[2019-03-21 10:49] LABS: PARTIAL THROMBOPLASTIN TIME 39.2 Seconds (25.6-37.1)
[2019-03-21] MEDS: Pantoprazole 40 mg EC Tab PO SCH (11:06)
[2019-03-21 11:48] LABS: INR 7.5; PROTHROMBIN TIME 85.2 Seconds (9.8-13.1)
[2019-03-21] MEDS ORDERED: Phytonadione 10 mg/ml Inj (Adult) IVPB ONE (11:52)
[2019-03-21] MEDS ORDERED: Phytonadione 10 MG in Sodium Chloride 0.9% 50 ML IV ONE ×4 (12:15→20:00)
[2019-03-21] MEDS ORDERED: TESTOSTERONE CYPIONATE IM SCH (16:30)
[2019-03-21 17:29] LABS: INR 1.7; PROTHROMBIN TIME 18.9 Seconds (9.8-13.1)
[2019-03-21] MEDS ORDERED: Bismuth Subsalicylate 262 mg Chew Tab PO PRN ×2 (18:15→19:49)
[2019-03-22 05:45] LABS: HEMOGLOBIN 11.8 g/dL (12.0-18.0); MEAN CELL VOLUME 79.8 fl (80.0-94.0); MEAN CORPUSCULAR HEMOGLOBIN 25.3 pg (27.0-31.0); MEAN CORPUSCULAR HGB CONC 31.6 g/dL (33.0-37.0); RBC 4.69 Mil/uL (4.40-5.90); RED CELL DISTRIBUTION WIDTH 14.5 % (11.5-14.5); WHITE BLOOD COUNT 8.3 K/uL (4.8-10.8)
[2019-03-22 05:55] LABS: INR 1.3; PROTHROMBIN TIME 15.1 Seconds (9.8-13.1)
[2019-03-22 05:57] LABS: PARTIAL THROMBOPLASTIN TIME 32.7 Seconds (25.6-37.1)
[2019-03-22] MEDS: Pantoprazole 40 mg EC Tab PO SCH (09:11)
--- NOTE | 2019-03-22 11:37 | CP.PCM.CON ---
History of Present Illness - History of Present Illness History of Present Illness: This is a 34 yrs old male who has a protein s deficiency and has had multiple DVTs and multiple PEs. He was on coumadin 7.5 mg daily and was in the therapeutic range. On 03/19/19 he felt very depressed and swallowed 50 coumadin tabs for attempted suicide. He was brought to the hospital but had no bleeding from any site. His INR went up to 7.5, but then has now come down to 1.3. He 3was seen by psych, and he is feeling better daniel. P/H Pt is trabsgender, with a protein s deficiency,has a IVF filter, and depression. and has had right ACL repair. He drinks occasionally, does not smoke but does take cocaine off and on. multiple epoisodes of pylonephritis no family history of any medical problems Past Patient History - Past Medical History & Family History Past Medical History?: Yes - Past Social History Smoking Status: Never Smoked - CARDIAC Hx Cardiac Disorders: No - PULMONARY Hx Respiratory Disorders: No - NEUROLOGICAL Hx Neurological Disorder: No - HEENT Hx HEENT Problems: No - RENAL Hx Chronic Kidney Disease: No - ENDOCRINE/METABOLIC Hx Endocrine Disorders: No - HEMATOLOGICAL/ONCOLOGICAL Hx Blood Disorders: Yes (protein s deficiency,PE,DVT) - INTEGUMENTARY Hx Dermatological Problems: No - MUSCULOSKELETAL/RHEUMATOLOGICAL Hx Musculoskeletal Disorders: No - GASTROINTESTINAL Hx Gastrointestinal Disorders: No - GENITOURINARY/GYNECOLOGICAL Hx Genitourinary Disorders: No - PSYCHIATRIC Hx Substance Use: Yes - SURGICAL HISTORY Hx Tonsillectomy: Yes - ANESTHESIA Hx Anesthesia: Yes Hx Anesthesia Reactions: Yes (Fentanyl (hives)) Hx Malignant Hyperthermia: No Meds Allergies/Adverse Reactions: Allergies Allergy/AdvReac Type Severity Reaction Status Date / Time fentanyl Allergy SHORTNESS Verified 03/19/19 14:17 OF BREATH sulfamethoxazole Allergy SHORTNESS Verified 03/19/19 14:17 [From Bactrim] OF BREATH trimethoprim [From Bactrim] Allergy SHORTNESS Verified 03/19/19 14:17 OF BREATH acetaminophen [From Percocet] AdvReac VOMITING Verified 03/19/19 14:17 oxycodone [From Percocet] AdvReac VOMITING Verified 03/19/19 14:17 - Medications Medications: Current Medications Bismuth Subsalicylate (Pepto Bismol) 524 mg PO Q4 PRN PRN Reason: Dyspepsia Enoxaparin Sodium (Lovenox) 120 mg SC Q12 [facility]; Protocol Home Med (Testosterone Cypionate [Depo-Testosterone Inj]) 0.5 ml IM TH [facility] Last Admin: 03/21/19 17:13 Dose: 0.5 ml Ondansetron HCl (Zofran Inj) 4 mg IVP Q6 PRN PRN Reason: Nausea/Vomiting Pantoprazole Sodium (Protonix Ec Tab) 40 mg PO DAILY [facility] Last Admin: 03/22/19 09:11 Dose: 40 mg Temazepam (Restoril) 15 mg PO HS [facility] Last Admin: 03/21/19 23:03 Dose: 15 mg Warfarin Sodium (Coumadin) 7.5 mg PO QD5 [facility]; Protocol Stop: 03/22/19 17:01 Physical Exam - Additional Findings Additional findings: Physical exam; Alert,well oriented in no acute distress' Neck; supple, o adenopathy Chest; clear, no rales or rhonchi heart' rsr,no murmur Abdomen; no mass, no h/s megaly Results - Vital Signs Recent Vital Signs: Last Vital Signs Temp 98.1 F 03/22/19 08:53 Pulse 68 03/22/19 08:53 Resp 20 03/22/19 08:53 BP 95/60 L 03/22/19 08:53 Pulse Ox 98 03/22/19 08:53 - Labs Result Diagrams: 03/22/19 04:37 03/20/19 06:20 Labs: Laboratory Results - last 24 hr 03/21/19 03/21/19 03/21/19 09:35 17:00 17:00 WBC RBC Hgb Hct MCV MCH MCHC RDW Plt Count PT 85.2 H* D 18.9 H D INR 7.5 1.7 APTT Blood Type A POSITIVE Antibody Screen Negative Crossmatch See Detail BBK History Checked Patient has bt 03/22/19 03/22/19 04:37 04:37 WBC 8.3 RBC 4.69 Hgb 11.8 L Hct 37.5 MCV 79.8 L MCH 25.3 L MCHC 31.6 L RDW 14.5 Plt Count 298 PT 15.1 H INR 1.3 APTT 32.7 Blood Type Antibody Screen Crossmatch BBK History Checked Assessment & Plan - Assessment and Plan (Free Text) Assessment: impression; Coumadin overdose. His CBC and cmp are normal, the coagulation tests show that the inr was normal on admission and as expected went up to 7.5. since the coumadin was stopped the inr is now 1.3. Plan: Plan; I feel he should be on his usual dose of coumadin 7.5 , ands since this will take 48 hrs before correcting, would keep him on lovenox ( considering his past h/o DVT and PE) until he is in the therapeutic range for coumadin - Date & Time Date: 03/22/19 Time: 11:56
[2019-03-22] MEDS: Enoxaparin 120 mg Syringe SC SCH ×2 (12:25→21:22)
[2019-03-23 08:07] VITALS: RESP 18; O2SAT 97
[2019-03-23] MEDS: Enoxaparin 120 mg Syringe SC SCH (09:30)
[2019-03-23] MEDS: Pantoprazole 40 mg EC Tab PO SCH (09:30)
[2019-03-23 11:15] LABS: HEMOGLOBIN 11.5 g/dL (12.0-18.0); MEAN CELL VOLUME 79.4 fl (80.0-94.0); MEAN CORPUSCULAR HEMOGLOBIN 25.3 pg (27.0-31.0); MEAN CORPUSCULAR HGB CONC 31.9 g/dL (33.0-37.0); RBC 4.56 Mil/uL (4.40-5.90); RED CELL DISTRIBUTION WIDTH 14.9 % (11.5-14.5); WHITE BLOOD COUNT 6.4 K/uL (4.8-10.8)
[2019-03-23 11:29] LABS: PROTHROMBIN TIME 22.4 Seconds (9.8-13.1)
[2019-03-23 11:30] LABS: BLOOD UREA NITROGEN 11 mg/dl (9-20); CALCIUM 8.9 mg/dL (8.4-10.2); GFR NON-AFRICAN AMERICAN > 60
[2019-03-23 11:31] LABS: PARTIAL THROMBOPLASTIN TIME 55.7 Seconds (25.6-37.1)
[2019-03-23 13:13] VITALS: PULSE 90
[2019-03-23 15:50] VITALS: BP 112/72; TEMP 98.4
--- NOTE | 2019-03-25 06:57 | PN ---
DATE: 03/21/2019 SUBJECTIVE: The patient seen and examined. Interim events noted. The patient remains in progressive care unit with telemetry monitoring on one-to-one observation. Denies any specific complaint. No chest pain, no shortness of breath. No abdominal pain, no confusion, no bleeding. PHYSICAL EXAMINATION: GENERAL: The patient is in no acute distress. VITAL SIGNS: Stable. No orthostatic changes. HEART: S1 and S2, normal and regular. LUNGS: Good bilateral air exchange. ABDOMEN: Soft, nontender. EXTREMITIES: No edema, no calf swelling, no tenderness, no acute ischemia. CENTRAL NERVOUS SYSTEM: Exam is essentially unchanged. DIAGNOSTICS DATA: Available diagnostic data reviewed. Telemetry monitoring does not show significant arrhythmias. Overall, the patient is hemodynamically stable. INR is 6.3 and increasing. We will start the patient on vitamin K and monitor closely. There is no sign of active bleeding. Plan as ordered. Case and plan discussed with patient. Asael Arreaga MD
--- NOTE | 2019-03-25 07:02 | PN ---
DATE: 03/23/2019 SUBJECTIVE: The patient seen and examined. Interim events noted. Consults noted and appreciated. Hematology consult noted and appreciated. The patient remains in progressive care unit on telemetry monitoring with one-to-one observation. The patient feels okay. Denies any specific complaint. No chest pain, no shortness of breath. No bleeding. No dizziness or loss of consciousness. PHYSICAL EXAMINATION: GENERAL: The patient is in no acute distress. VITAL SIGNS: Stable. HEART: S1 and S2, normal and regular. LUNGS: Good bilateral air exchange. ABDOMEN: Soft, nontender. EXTREMITIES: No edema, no calf swelling, no tenderness, no acute ischemia. CENTRAL NERVOUS SYSTEM: Exam is essentially unchanged. DIAGNOSTIC DATA: Available diagnostic data reviewed. Telemetry monitoring does not show significant arrhythmia. INR remains subtherapeutic. Overall, the patient is clinically stable. No sign of bleeding. We will clear the patient medically for transfer to psych unit and follow up PT/INR over there. Plan as ordered. Asael Arreaga MD
== END 2019-03-23 17:30 | DRG 449 ==
LOC: H.ER 14:09 → H.ERHOLD 20:14 → H.TEL 03-20 13:03
PROVIDERS: ADMIT Internal Medicine; ATTEND Internal Medicine
DX: T45.512A Poisoning by anticoagulants, intentional self-harm, initial encounter (principal); D68.59 Other primary thrombophilia; F14.10 Cocaine abuse, uncomplicated; Z87.890 Personal history of sex reassignment; Z86.711 Personal history of pulmonary embolism; Z88.5 Allergy status to narcotic agent; Z88.6 Allergy status to analgesic agent; Z88.2 Allergy status to sulfonamides; J45.909 Unspecified asthma, uncomplicated; F41.9 Anxiety disorder, unspecified; F60.3 Borderline personality disorder; F31.30 Bipolar disorder, current episode depressed, mild or moderate severity, unspecified; Z86.718 Personal history of other venous thrombosis and embolism; Z79.01 Long term (current) use of anticoagulants

== ENCOUNTER 2019-03-23 13:33 | Inpatient (IN) | payer MEDICAID ==
[2019-03-23 17:47] VITALS: BMI 39.8
--- NOTE | 2019-03-23 19:17 | PCM.BM ---
<Paras De - Last Filed: 03/23/19 19:15> Treatment Plan Problems - Problems identified on initial assessmt Medication nonadherence Date Initiated: 03/23/19 Time Initiated: 19:15 Treatment assets and liabiliti Patient Assests: adapts well, cooperative, educated, resourceful, self-reliant, good support system (Pt. reports having a loving and supportive relationship with Mrs. Acosta, a woman who worked with [employer] and who pt considers a mother. Pt. reports having a small group of friends he refers to as his iroquois who he can confide in. ), negotiates basic needs, cognitively intact <Jairo Parra Suresh - Last Filed: 03/26/19 08:00> Family Contact Family involvement: Family/SO is involved Family contact: Patient agrees to contact, Family has been contacted by patient Family contact name: Dave - Mother Family contacted how many times per week?: 2 Family contact comment: [phone] - Goals for Treatment Patient goals for treatment: Pt is apathetic and superficially cooperative. Pt unable to provide reasons why he is noncompliant with outpatient treatment and still admitting to passive SI and cannot give any reasons to live. Pt does not have goals at this time. Discharge/Continuing Care - Education Needs Education Needs: Family Medication, Family Diagnosis/Disease Process, Family Coping Skills, Family Community resources, Family Aftercare Safety Plan, Patient Medication, Patient Diagnosis/Disease Process, Patient Coping Skills, Patient Community resources, Patient Aftercare Safety Plan - Discharge Discharge Criteria: Tolerates medication w/o severe side effects, Free of Suicidal thoughts, Normal sleep pattern, Ability to care for self, Reduction of target symptoms Discharge to:: Home - Treatment Team Participation Patient/Family/SO Statement: 03/26/19 08:02 Pt seen in treatment team on 03/25/19. Pt reported he was feeling "so-so." Dr. Vigil discussed switch from Abilify to Risperdal and discussed giving all the Risperdal at night to increase sedation. Dr. Vigil explained the addition of the Minipress and rationale for its introduction. Pt reported that he "still don't want to live." Pt presented as apathetic with soft, slow speech. Pt made poor eye contact often looking away or down at the table. Pt's responses were superficial and he appeared apathetic to treatment unable to provide goals or reasons why plan of care after discharge never come together. Pt denied current HI and AVT hallucinations. Pt's affect and mood are still depressed and his psychomotor movements are slow. Discussed with Family/SO: No Was Patient/Family/SO present at Treatment Team Meeting: Yes <Yuliya Vigil - Last Filed: 03/31/19 15:21> - Diagnosis (1) Borderline personality disorder Status: Acute Interventions: 03/31/19 15:21 psychotherapy
[2019-03-23] MEDS ORDERED: DiphenhydrAMINE 50 mg/ml Inj IM PRN (19:56)
[2019-03-23] MEDS ORDERED: Magnesium Hydroxide Susp 30 ml UD PO PRN (19:56)
[2019-03-23] MEDS ORDERED: Alum-Mag Hydrox-Simethicone Susp (30 mL) PO PRN (19:56)
[2019-03-23] MEDS ORDERED: Bismuth Subsalicylate 262 mg Chew Tab PO PRN (20:09)
[2019-03-24] MEDS: Pantoprazole 40 mg EC Tab PO SCH (10:00)
--- NOTE | 2019-03-24 15:14 | PCM.PSYCH ---
Initial Psychiatric Evaluation - Initial Psychiatric Evaluation Type of Admission: Voluntary Legal Status: Capacity Chief Complaint (in patient's own words): I have no purpose in life History of Present Illness and Precipitating Events: pt is a 34 ys old male with previous psychiatric diagnosis of depression and borderline personality disorder brought to ER after suicidal attempt by overdose on Coumadin, pt reported has not been compliant with follow up visits, became increasingly depressed feeling lonely helpless and worthless, he also relapsed on cocaine , pt felt his life has no meaning and attempted suicide by overdose pt on the unit presenting with poor eye contact, depressed mood , reported feeling angry irritable, having repeated scenes of hurting himself and others, pt continues to report passive suicidal ideation feeling his life is worthless, denied active thoughts of self harm on the unit, denied command hallucinations Current Medications: Active Medications Generic Name Dose Route Start Last Admin Trade Name Freq PRN Reason Stop Dose Admin Acetaminophen 650 mg 03/23/19 19:56 Tylenol 325mg Tab PO Q4 PRN Pain, moderate (4-7) Al Hydrox/Mg Hydrox/Simethicone 30 ml 03/23/19 19:56 Maalox Plus 30 Ml PO Q4 PRN Dyspepsia Bismuth Subsalicylate 524 mg 03/23/19 20:09 Pepto Bismol PO Q4 PRN Dyspepsia Diphenhydramine HCl 50 mg 03/23/19 19:56 Benadryl IM Q6 PRN Extrapyramidal S/S Unable PO Haloperidol 5 mg 03/23/19 19:56 Haldol PO Q4 PRN Agitation Haloperidol Lactate 5 mg 03/23/19 19:56 Haldol IM Q4 PRN Agitation, Unable to Take PO Home Med 0.5 ml 03/26/19 20:09 Testosterone Cypionate [Depo-Testosterone Inj] IM TH XIN Lorazepam 2 mg 03/23/19 19:56 Ativan IM Q4 PRN Anxiety/Agitation,Unable PO Magnesium Hydroxide 30 ml 03/23/19 19:56 Milk Of Magnesia PO HS PRN Constipation Pantoprazole Sodium 40 mg 03/24/19 09:00 Protonix Ec Tab PO DAILY XIN Prazosin HCl 2 mg 03/24/19 22:00 Minipress PO HS XIN Risperidone 1 mg 03/24/19 15:06 Risperdal M-Tab PO 03/24/19 15:07 STAT STA Risperidone 1 mg 03/25/19 09:00 Risperdal M-Tab PO DAILY XIN Temazepam 15 mg 03/23/19 22:00 03/23/19 22:03 Restoril PO 15 mg HS XIN Administration Past Psychiatric History - Past Psychiatric History Explanation of prior treatment: multiple hospitalizations, history of non compliance History of ETOH/Drug Use: cocaine abuse Pertinent Medical Hx (Current Medical&Sleep Prob, Allergies): Allergies Allergy/AdvReac Type Severity Reaction Status Date / Time fentanyl Allergy SHORTNESS Verified 03/19/19 14:17 OF BREATH sulfamethoxazole Allergy SHORTNESS Verified 03/19/19 14:17 [From Bactrim] OF BREATH trimethoprim [From Bactrim] Allergy SHORTNESS Verified 03/19/19 14:17 OF BREATH acetaminophen [From Percocet] AdvReac VOMITING Verified 03/19/19 14:17 oxycodone [From Percocet] AdvReac VOMITING Verified 03/19/19 14:17 Testosterone Cypionate [Depo-Testosterone Inj] 0.5 ml IM TH 09/16/18 Temazepam [Restoril] 15 mg PO HS 03/19/19 Warfarin [Coumadin] 7.5 mg PO DAILY 03/19/19 Bismuth Subsalicylate [Pepto Bismol] 524 mg PO Q4 PRN ctb 03/23/19 Pantoprazole [Protonix EC Tab] 40 mg PO DAILY ect 03/23/19 Mental Status Examination - Personal Presentation Personal Presentation: Looks stated age - Affect Affect: Constricted, Depressed - Motor Activity Motor Activity: Psychomotor Agitation - Reliability in Providing Information Reliability in Providing Information: Fair - Speech Speech: Relevant - Mood Mood: Depressed, Anxious - Formal Thought Process Formal Thought Process: No Impairment - Obsessions/Compulsions Obsessions: No Compulsions: No - Cognitive Functions Orientation: Person, Place, Situation Sensorium: Alert Estimate of Intelligence: Average Judgement: Imparied, as evidence by: Poor judgement - Risk Risk: Suicidal, Diminished functioning - Strength & Assets Inventory Strength & Assets Inventory: Life experience - Limitations Additional comments: poor compliance DSM 5 DX - DSM 5 DSM 5 Diagnosis: bipolar I disorder depressed borderline personality disorder cocaine abuse - Recommended/Plan of Treatment Treatment Recommendations and Plan of Treatment: temazepam 15mg qhs prazosin 2mg qhs risperdal 1mg daily increase gradually vistaril prn cbt group and supportive therapy
[2019-03-24] MEDS ORDERED: Risperidone M tab 1 MG PO ONE (15:30)
[2019-03-24 16:15] LABS: INR 3.6; PROTHROMBIN TIME 41.3 Seconds (9.8-13.1)
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
[2019-03-25] MEDS ORDERED: Risperidone M tab 1 MG PO SCH (09:00)
[2019-03-25] MEDS ORDERED: Enoxaparin 40 mg Syringe SC ONE (11:45)
[2019-03-25] MEDS: Pantoprazole 40 mg EC Tab PO SCH (12:12)
[2019-03-25 12:54] LABS: INR 4.9
[2019-03-25 12:57] LABS: PROTHROMBIN TIME 55.5 Seconds (9.8-13.1)
--- NOTE | 2019-03-25 15:43 | PCM.PYCHPN ---
Psychiatric Progress Note - Psychiatric Progress Note Patient seen today, length of contact: pt evaluated discussed with team chart reviewed Patient Chief Complaint: I keep getting to the same point in life Problems Identified/Issues Discussed: pt evaluated with treatment team presenting with depressed mood and affect, poor eye contact, under productive speech,continues to report non command auditory hallucinations, putting him down and reporting ugly scenes refusing to shre the content, patient continues to have passive suicidal ideation stating his life has no purpose, denkishor d active suicidal plan on the unit motivational therapy provided, encouraged pt to attend groups, discussed gradual increase in risperidone no reported side effects Medical Problems: multiple hospitalizations, history of non compliance DSM 5 Symptoms Update: borderline personality disorder cocaine abuse bipolar disorder Medication Change: Yes (risperidone ) Mental Status Examination - Cognitive Function Orientation: Person, Place, Situation Attention: WNL Concentration: Poor Association: WNL Fund of Knowledge: WNL Decription of patient's judgement and insights: partial insight poor judgment - Mood Mood: Depressed, Anxious - Affect Affect: Constricted, Depressed - Speech Speech: Soft - Formal Thought Process Formal Thought Process: No Impairment - Suicidal Ideation Suicidal Ideation: Yes - Homicidal Ideation Homicidal Ideation: No Goal/Treatment Plan - Goal/Treatment Plan Need for Continued Stay: Severe depression anxiety, Discharge may exacerbated symptoms Progress Toward Problem(s) and Goals/Treatment Plan: temazepam 15mg qhs prazosin 2mg qhs risperdal 1mg qhs and cogentin 0.5 mg qhs vistaril prn cbt group and supportive therapy
[2019-03-25] MEDS: Risperidone M tab 1 MG PO SCH (21:58)
--- NOTE | 2019-03-26 09:57 | PN ---
DATE: 03/26/2019 SUBJECTIVE: The patient seen and examined. Interim events noted. Psychiatry followup and intervention noted and appreciated. Written orders were given. The patient remains in adult psych unit, no specific new medical complaint. No chest pain or shortness of breath. PHYSICAL EXAMINATION: GENERAL: The patient is in no acute distress. VITAL SIGNS: Stable. HEART: S1 and S2, normal and regular. LUNGS: Good bilateral air exchange. ABDOMEN: Soft, nontender. EXTREMITIES: No edema, no calf swelling, no tenderness, no acute ischemia. CENTRAL NERVOUS SYSTEM: Exam is essentially unchanged. DIAGNOSTIC DATA: Available diagnostic data reviewed. Overall, the patient's general medical condition is stable. INR is 4.5. Plan as ordered. Asael Arreaga MD
[2019-03-26] MEDS: Pantoprazole 40 mg EC Tab PO SCH (11:56)
[2019-03-26 14:23] LABS: HEMOGLOBIN 11.7 g/dL (12.0-18.0); MEAN CELL VOLUME 80.4 fl (80.0-94.0); MEAN CORPUSCULAR HEMOGLOBIN 25.2 pg (27.0-31.0); MEAN CORPUSCULAR HGB CONC 31.4 g/dL (33.0-37.0); RBC 4.65 Mil/uL (4.40-5.90); RED CELL DISTRIBUTION WIDTH 14.3 % (11.5-14.5); WHITE BLOOD COUNT 6.3 K/uL (4.8-10.8)
[2019-03-26 14:45] LABS: LDL CHOLESTEROL 104 mg/dL (0-129)
[2019-03-26 15:08] LABS: BLOOD UREA NITROGEN 11 mg/dl (9-20); CALCIUM 9.1 mg/dL (8.4-10.2); GFR NON-AFRICAN AMERICAN > 60; HDL CHOLESTEROL 26 MG/DL (30-70)
[2019-03-26 15:11] LABS: INR 4.1; PROTHROMBIN TIME 46.9 Seconds (9.8-13.1)
--- NOTE | 2019-03-26 16:31 | PCM.PYCHPN ---
Psychiatric Progress Note - Psychiatric Progress Note Patient seen today, length of contact: pt evaluated discussed with team chart reviewed Patient Chief Complaint: pt was seen in milieu, deferred speaking to this show card writer directly pt seen with primary rn-pt reportedly feeling tired did not feel up to seeing this show card writer. verbalized that would visit with team in the am. team report pt seen about unit, was seen to participating in group in afternoon with peers. Problems Identified/Issues Discussed: alteration in mood coping Medical Problems: per chart Diagnostic Results: per psychiatry, per medicine, per nursing per recreational therapy DSM 5 Symptoms Update: some improvement in mood although did not want to speak to this show card writer directly Medication Change: No Medical Record Reviewed: Yes Consults ordered or reviewed: pt being followed by medical team Mental Status Examination - Cognitive Function Orientation: Person, Place, Situation Attention: WNL Concentration: Poor Association: WNL Fund of Knowledge: WNL Decription of patient's judgement and insights: impaired - Mood Mood: Depressed, Anxious - Affect Affect: Constricted, Depressed - Speech Speech: Soft - Formal Thought Process Formal Thought Process: No Impairment - Suicidal Ideation Suicidal Ideation: Yes - Homicidal Ideation Homicidal Ideation: No Goal/Treatment Plan - Goal/Treatment Plan Need for Continued Stay: Severe depression anxiety, Discharge may exacerbated symptoms Progress Toward Problem(s) and Goals/Treatment Plan: inpt milieu pt being followed by medical team pt with hx of overdose of coumadin medical team to follow, pt to remain bleeding precautions adjust meds per clinical status discharge planning in progress Estimated Date of D/C: 04/01/19 - Smoking Cessation Smoking Cessation Initiated: No Reason for not providing: pt defers
[2019-03-26] MEDS: Risperidone M tab 1 MG PO SCH (22:04)
[2019-03-27] MEDS: Pantoprazole 40 mg EC Tab PO SCH (08:37)
[2019-03-27 13:28] LABS: PROTHROMBIN TIME 34.1 Seconds (9.8-13.1)
--- NOTE | 2019-03-27 16:14 | PCM.PYCHPN ---
Psychiatric Progress Note - Psychiatric Progress Note Patient seen today, length of contact: pt evaluated discussed with team chart reviewed Patient Chief Complaint: I still have intrusive thoughts Problems Identified/Issues Discussed: pt evaluated , presenting with depressed mood and affect, reported episodes of increased anger with intrusive thoughts to hurt others, pt however did not dpecify any body, CBT provided discussing coping skills wih anger , discussed increasing dose of risperidone for further mood stabilization, no reported side effets , encouraged pt to attend groups, pt denied command hallucinations denied active thoughts of self harm on the unit Medical Problems: multiple hospitalizations, history of non compliance DSM 5 Symptoms Update: borderline personaity disorder bipolar disorder MRE mixed cocaine abuse Medication Change: Yes (increase risoeridone ) Medical Record Reviewed: Yes Mental Status Examination - Cognitive Function Orientation: Person, Place, Situation Attention: WNL Concentration: Poor Association: WNL Fund of Knowledge: WNL - Mood Mood: Depressed, Anxious - Affect Affect: Constricted, Depressed - Speech Speech: Soft - Formal Thought Process Formal Thought Process: No Impairment - Suicidal Ideation Suicidal Ideation: No - Homicidal Ideation Homicidal Ideation: Yes Goal/Treatment Plan - Goal/Treatment Plan Need for Continued Stay: Severe depression anxiety, Discharge may exacerbated symptoms Progress Toward Problem(s) and Goals/Treatment Plan: temazepam 15mg qhs prazosin 2mg qhs risperdal 2mg qhs and cogentin 0.5 mg qhs vistaril prn cbt group and supportive therapy Estimated Date of D/C: 04/01/19
--- NOTE | 2019-03-28 08:38 | PN ---
DATE: 03/27/2019 SUBJECTIVE: The patient was seen yesterday. Note is being dictated today. The patient was seen and examined. Interim events noted. Psychiatry followup and intervention noted and appreciated. The patient remained in , but denied any specific medical complaints. PHYSICAL EXAMINATION: GENERAL: The patient is in no acute distress. VITAL SIGNS: Stable. CENTRAL NERVOUS SYSTEM: Essentially unchanged. DIAGNOSTIC DATA: Yesterday, INR was noted . ASSESSMENT AND PLAN: Overall, the patient is medically stable. Plan as ordered. Asael Arreaga MD
[2019-03-28] MEDS: Pantoprazole 40 mg EC Tab PO SCH (08:56)
--- NOTE | 2019-03-28 10:51 | PN ---
DATE: 03/28/2019 MEDICAL FOLLOWUP PROGRESS NOTE SUBJECTIVE: The patient is seen and examined. Interim events noted. Psychiatry followup and intervention noted and appreciated. The patient remains in adult psych unit. ambulatory, eating breakfast. Denies any specific medical complaint. No specific issue reported by nursing staff. PHYSICAL EXAMINATION: GENERAL: The patient is in no acute distress. VITAL SIGNS: Stable. Physical examination is essentially unchanged. DIAGNOSTIC DATA: Available diagnostic data reviewed. INR level was 3 yesterday. Coumadin was restarted. ASSESSMENT: Overall, the patient is clinically and medically stable. PLAN: As ordered. Asael Arreaga MD
[2019-03-28 15:13] LABS: INR 2.8; PROTHROMBIN TIME 31.9 Seconds (9.8-13.1)
--- NOTE | 2019-03-28 15:23 | PCM.PYCHPN ---
Psychiatric Progress Note - Psychiatric Progress Note Patient seen today, length of contact: pt evaluated discussed with team chart reviewed Patient Chief Complaint: pt was seen in milieu, watching tv with peers, verbally agreeable to speak with this curriculum writer in private area on unit with view of staff, reports mood is a little calmer, not as reportedly irritabl, denies desire to harm others, staff report pt rx adherent. Problems Identified/Issues Discussed: alteration in mood coping Medical Problems: per chart Diagnostic Results: per psychiatry, per medicine, per nursing per recreational therapy DSM 5 Symptoms Update: some improvement mood less reported irritability Medication Change: No Medical Record Reviewed: Yes Consults ordered or reviewed: pt pt being followed by medical team Mental Status Examination - Cognitive Function Orientation: Person, Place, Situation, Time Attention: WNL Concentration: WNL Association: WNL Fund of Knowledge: WN Decription of patient's judgement and insights: impaired - Mood Mood: Depressed, Anxious Additional comments: somewhat less reported by pt. - Affect Affect: Constricted, Depressed - Speech Speech: Soft - Formal Thought Process Formal Thought Process: No Impairment - Suicidal Ideation Suicidal Ideation: No - Homicidal Ideation Homicidal Ideation: Yes Goal/Treatment Plan - Goal/Treatment Plan Need for Continued Stay: Severe depression anxiety, Discharge may exacerbated symptoms Progress Toward Problem(s) and Goals/Treatment Plan: inpt milieu pt being followed by medical team pt with hx of overdose of coumadin medical team to follow, pt to remain bleeding precautions adjust meds per clinical status review dbt mindfulness discharge planning in progress Estimated Date of D/C: 04/01/19 - Smoking Cessation Smoking Cessation Initiated: No Reason for not providing: defers
[2019-03-28] MEDS ORDERED: TESTOSTERONE CYPIONATE IM SCH (16:30)
[2019-03-29] MEDS: Pantoprazole 40 mg EC Tab PO SCH (09:34)
--- NOTE | 2019-03-29 14:28 | PCM.PYCHPN ---
Psychiatric Progress Note - Psychiatric Progress Note Patient seen today, length of contact: pt evaluated discussed with team chart reviewed Patient Chief Complaint: pt was seen in milieu, watching tv with peers, verbally agreeable to speak with this account underwriter in private area on unit with view of staff, reports mood is a little calmer, pt allowed for lab work to be drawn, deferred glucophage and protonix. denies complaints side effects denies notable bleeding bruising. Problems Identified/Issues Discussed: alteration in mood coping Medical Problems: per chart Diagnostic Results: per psychiatry, per medicine, per nursing per recreational therapy DSM 5 Symptoms Update: some improvement mood adherence (labs) deferred glucophage and protonix Medication Change: No Medical Record Reviewed: Yes Consults ordered or reviewed: pt being followed by medical team Mental Status Examination - Cognitive Function Orientation: Person, Place, Situation, Time Attention: WNL Concentration: WNL Association: WNL Fund of Knowledge: [facility] Decription of patient's judgement and insights: impaired - Mood Mood: Depressed, Anxious - Affect Affect: Constricted, Depressed - Speech Speech: Soft - Formal Thought Process Formal Thought Process: No Impairment - Suicidal Ideation Suicidal Ideation: No - Homicidal Ideation Homicidal Ideation: Yes Goal/Treatment Plan - Goal/Treatment Plan Need for Continued Stay: Severe depression anxiety, Discharge may exacerbated symptoms Progress Toward Problem(s) and Goals/Treatment Plan: inpt milieu pt being followed by medical team pt with hx of overdose of coumadin medical team to follow, pt to remain bleeding precautions adjust meds per clinical status review dbt mindfulness staff to notify medical team that pt deferred glocophage and protonix discharge planning in progress Estimated Date of D/C: 04/01/19 - Smoking Cessation Smoking Cessation Initiated: No Reason for not providing: pt defers
[2019-03-29 14:32] LABS: INR 2.9; PROTHROMBIN TIME 32.9 Seconds (9.8-13.1)
--- NOTE | 2019-03-30 08:42 | PN ---
DATE: 03/29/2019 SUBJECTIVE: The patient seen and examined. Interim events noted. Psychiatry followup and intervention noted and appreciated. The patient was admitted in the geropsych unit. no specific clinical complaints. No specific issues reported by nursing staff. Telephone order was given for Coumadin yesterday. PHYSICAL EXAMINATION: GENERAL: The patient is in no acute distress. VITAL SIGNS: Stable. Physical exam is essentially unchanged. DIAGNOSTIC DATA: Available diagnostic data reviewed. INR was 2.8. ASSESSMENT AND PLAN: Overall, the patient is within therapeutic range of INR and medically stable. Plan as ordered. Asael Arreaga MD
[2019-03-30] MEDS: Pantoprazole 40 mg EC Tab PO SCH (08:44)
--- NOTE | 2019-03-30 13:01 | PN ---
DATE: 03/30/2019 MEDICAL FOLLOWUP SUBJECTIVE: The patient seen and examined. Interim events noted. Psychiatry followup and intervention noted and appreciated. The patient remains in adult psych unit. Feels okay. Denies any specific medical complaint. No specific medical issue reported by nursing staff other than patient's un-cooperation with blood tests. PHYSICAL EXAMINATION: GENERAL: The patient is in no acute distress. VITAL SIGNS: Stable. Physical exam is essentially unchanged. DIAGNOSTIC DATA: Available diagnostic data reviewed. INR yesterday was 2.9 and was therapeutic. Today's labs are pending, as the patient refused to get it drawn. ASSESSMENT AND PLAN: Overall, the patient is medically stable. Plan as ordered. Asael Arreaga MD
[2019-03-30 14:11] LABS: INR 2.8; PROTHROMBIN TIME 32.3 Seconds (9.8-13.1)
--- NOTE | 2019-03-30 16:45 | PCM.PYCHPN ---
Psychiatric Progress Note - Psychiatric Progress Note Patient seen today, length of contact: pt evaluated discussed with team chart reviewed Patient Chief Complaint: the thoughts are less but I am still depressed Problems Identified/Issues Discussed: pt evaluated , with treatment team, reported better impulse control and partial clearing of the intrusive thoughts, pt continues to present with depressed mood and affect, discussed starting effexor for depression, encouraged pt to attend groups, pt denied command hallucinations, denied active thoughts of self harm on the unit Medical Problems: multiple hospitalizations, history of non compliance DSM 5 Symptoms Update: bipolar I disorder mixed borderline personality disorder Medication Change: Yes (start effexor ) Medical Record Reviewed: Yes Mental Status Examination - Cognitive Function Orientation: Person, Place, Situation, Time Attention: WNL Concentration: WNL Association: WNL Fund of Knowledge: WNL - Mood Mood: Depressed, Anxious - Affect Affect: Constricted, Depressed - Speech Speech: Soft - Formal Thought Process Formal Thought Process: No Impairment - Suicidal Ideation Suicidal Ideation: No - Homicidal Ideation Homicidal Ideation: No Goal/Treatment Plan - Goal/Treatment Plan Need for Continued Stay: Severe depression anxiety, Discharge may exacerbated symptoms Progress Toward Problem(s) and Goals/Treatment Plan: start effexor 37.5 mg daily temazepam 15mg qhs prazosin 2mg qhs risperdal 2mg qhs and cogentin 0.5 mg qhs vistaril prn cbt group and supportive therapy Estimated Date of D/C: 04/01/19
--- NOTE | 2019-03-31 10:08 | CP.PCM.PN ---
<George Blancas - Last Filed: 03/31/19 11:29> Subjective - Date & Time of Evaluation Date of Evaluation: 03/31/19 Time of Evaluation: 10:08 - Subjective Subjective: Patient seen and examined this morning with Dr Arreaga Continue to refuse blood tests, no overnight events, feeling better overall Reporting diarrhea with metformin Objective - Vital Signs/Intake and Output Vital Signs (last 24 hours): Temp Pulse Resp BP Pulse Ox 98.4 F 103 H 20 91/57 L 03/31/19 09:28 03/31/19 09:28 03/31/19 09:28 03/31/19 09:28 - Medications Medications: Current Medications Al Hydrox/Mg Hydrox/Simethicone (Maalox Plus 30 Ml) 30 ml PO Q4 PRN PRN Reason: Dyspepsia Benztropine Mesylate (Cogentin) 0.5 mg PO [facility] Last Admin: 03/30/19 21:58 Dose: 0.5 mg Bismuth Subsalicylate (Pepto Bismol) 524 mg PO Q4 PRN PRN Reason: Dyspepsia Diphenhydramine HCl (Benadryl) 50 mg IM Q6 PRN PRN Reason: Extrapyramidal S/S Unable PO Haloperidol (Haldol) 5 mg PO Q4 PRN PRN Reason: Agitation Haloperidol Lactate (Haldol) 5 mg IM Q4 PRN PRN Reason: Agitation, Unable to Take PO Home Med (Testosterone Cypionate [Depo-Testosterone Inj]) 0.5 ml IM [facility] Last Admin: 03/28/19 18:42 Dose: 0.5 ml Hydroxyzine Pamoate (Vistaril) 50 mg PO Q8 PRN PRN Reason: Anxiety Last Admin: 03/26/19 22:04 Dose: 50 mg Hydroxyzine Pamoate (Vistaril) 50 mg PO [facility] Last Admin: 03/30/19 21:58 Dose: 50 mg Lorazepam (Ativan) 2 mg IM Q4 PRN PRN Reason: Anxiety/Agitation,Unable PO Magnesium Hydroxide (Milk Of Magnesia) 30 ml PO HS PRN PRN Reason: Constipation Pantoprazole Sodium (Protonix Ec Tab) 40 mg PO DAILY [facility] Last Admin: 03/30/19 08:44 Dose: 40 mg Prazosin HCl (Minipress) 2 mg PO [facility] Last Admin: 03/30/19 21:58 Dose: 2 mg Risperidone (Risperdal Tab) 2 mg PO HS [facility] Last Admin: 03/30/19 21:58 Dose: 2 mg Sitagliptin Phosphate (Januvia) 100 mg PO DAILY [facility] Temazepam (Restoril) 15 mg PO HS [facility] Last Admin: 03/30/19 21:58 Dose: 15 mg Venlafaxine HCl (Effexor Xr) 37.5 mg PO DAILY [facility] - Labs Labs: 03/26/19 14:00 03/26/19 14:00 PT 32.3 Seconds (9.8-13.1) H 03/30/19 13:35 INR 2.8 03/30/19 13:35 APTT 51.0 Seconds (25.6-37.1) H 03/26/19 14:00 - Constitutional Appears: No Acute Distress - Head Exam Head Exam: NORMAL INSPECTION - Eye Exam Eye Exam: EOMI, PERRL - ENT Exam ENT Exam: Mucous Membranes Moist - Neck Exam Neck Exam: Full ROM. absent: Lymphadenopathy, Tenderness, Thyromegaly - Respiratory Exam Respiratory Exam: Clear to Ausculation Bilateral, NORMAL BREATHING PATTERN - Cardiovascular Exam Cardiovascular Exam: REGULAR RHYTHM, +S1, +S2 - GI/Abdominal Exam GI & Abdominal Exam: Soft, Normal Bowel Sounds. absent: Distended, Tenderness - Extremities Exam Extremities Exam: absent: Calf Tenderness, Pedal Edema - Neurological Exam Neurological Exam: Alert, Awake, Oriented x3 - Psychiatric Exam Psychiatric exam: Normal Mood - Skin Skin Exam: Dry, Warm Assessment and Plan - Assessment and Plan (Free Text) Assessment: 34 yo transgender male patient admitted in Psych unit with MDD, h/o DM. Plan: - stop metformin - start Januvia 100 mg PO daily - INR/PT pending (refusing) - will continue to monitor - rest of plan as ordered Case discussed with Dr Arreaga <Asael Arreaga - Last Filed: 03/31/19 19:50> Objective - Vital Signs/Intake and Output Vital Signs (last 24 hours): Temp Pulse Resp BP Pulse Ox 98.4 F 103 H 20 91/57 L 03/31/19 09:28 03/31/19 09:28 03/31/19 09:28 03/31/19 09:28 - Medications Medications: Current Medications Al Hydrox/Mg Hydrox/Simethicone (Maalox Plus 30 Ml) 30 ml PO Q4 PRN PRN Reason: Dyspepsia Benztropine Mesylate (Cogentin) 0.5 mg PO HS [facility] Last Admin: 03/30/19 21:58 Dose: 0.5 mg Bismuth Subsalicylate (Pepto Bismol) 524 mg PO Q4 PRN PRN Reason: Dyspepsia Diphenhydramine HCl (Benadryl) 50 mg IM Q6 PRN PRN Reason: Extrapyramidal S/S Unable PO Haloperidol (Haldol) 5 mg PO Q4 PRN PRN Reason: Agitation Haloperidol Lactate (Haldol) 5 mg IM Q4 PRN PRN Reason: Agitation, Unable to Take PO Home Med (Testosterone Cypionate [Depo-Testosterone Inj]) 0.5 ml IM Sa [facility] Last Admin: 03/28/19 18:42 Dose: 0.5 ml Hydroxyzine Pamoate (Vistaril) 50 mg PO Q8 PRN PRN Reason: Anxiety Last Admin: 03/31/19 15:00 Dose: 50 mg Hydroxyzine Pamoate (Vistaril) 50 mg PO [facility] Last Admin: 03/30/19 21:58 Dose: 50 mg Lorazepam (Ativan) 2 mg IM Q4 PRN PRN Reason: Anxiety/Agitation,Unable PO Magnesium Hydroxide (Milk Of Magnesia) 30 ml PO HS PRN PRN Reason: Constipation Pantoprazole Sodium (Protonix Ec Tab) 40 mg PO DAILY [facility] Last Admin: 03/31/19 11:30 Dose: 40 mg Prazosin HCl (Minipress) 2 mg PO [facility] Last Admin: 03/30/19 21:58 Dose: 2 mg Risperidone (Risperdal Tab) 2 mg PO [facility] Last Admin: 03/30/19 21:58 Dose: 2 mg Sitagliptin Phosphate (Januvia) 100 mg PO DAILY [facility] Last Admin: 03/31/19 11:30 Dose: 100 mg Temazepam (Restoril) 15 mg PO [facility] Last Admin: 03/30/19 21:58 Dose: 15 mg Venlafaxine HCl (Effexor Xr) 37.5 mg PO DAILY [facility] Last Admin: 03/31/19 11:30 Dose: 37.5 mg - Labs Labs: 03/26/19 14:00 03/26/19 14:00 PT 32.3 Seconds (9.8-13.1) H 03/30/19 13:35 INR 2.8 03/30/19 13:35 APTT 51.0 Seconds (25.6-37.1) H 03/26/19 14:00 Assessment and Plan - Assessment and Plan (Free Text) Assessment: Patient was personally seen and examined by me in rounds with residents. Available labs and diagnostic data reviewed. Case, Patient's condition and management plan discussed with residents in rounds. Agree with resident's progress note. Plan: As ordered.
[2019-03-31] MEDS: Pantoprazole 40 mg EC Tab PO SCH (11:30)
[2019-03-31] MEDS: Venlafaxine 37.5 mg ER Cap PO SCH (11:30)
--- NOTE | 2019-03-31 15:25 | PCM.PYCHPN ---
Psychiatric Progress Note - Psychiatric Progress Note Patient seen today, length of contact: pt evaluated discussed with team chart reviewed Patient Chief Complaint: I am better today Problems Identified/Issues Discussed: pt evaluated ,observed attending groups, interacting with other patients, reported mood less depressed, brighter affect, no reporte side effects of effexor, denied any current thoughts of self harm, improved sleep and no changes in appetite Medical Problems: multiple hospitalizations, history of non compliance Medication Change: No (start effexor ) Medical Record Reviewed: Yes Mental Status Examination - Cognitive Function Orientation: Person, Place, Situation, Time Attention: WNL Concentration: WNL Association: WNL Fund of Knowledge: WNL - Mood Mood: Depressed, Anxious - Affect Affect: Constricted, Depressed - Speech Speech: Soft - Formal Thought Process Formal Thought Process: No Impairment - Suicidal Ideation Suicidal Ideation: No - Homicidal Ideation Homicidal Ideation: No Goal/Treatment Plan - Goal/Treatment Plan Need for Continued Stay: Severe depression anxiety, Discharge may exacerbated symptoms Progress Toward Problem(s) and Goals/Treatment Plan: effexor 37.5 mg daily temazepam 15mg qhs prazosin 2mg qhs risperdal 2mg qhs and cogentin 0.5 mg qhs vistaril prn cbt group and supportive therapy Estimated Date of D/C: 04/01/19
--- NOTE | 2019-04-01 06:50 | CP.PCM.PN ---
<George Blancas - Last Filed: 04/01/19 09:53> Subjective - Date & Time of Evaluation Date of Evaluation: 04/01/19 Time of Evaluation: 06:50 - Subjective Subjective: Patient seen and examined this morning with Dr Arreaga Reports feeling better, no overnight events, noted continue to refuse blood tests Objective - Vital Signs/Intake and Output Vital Signs (last 24 hours): Temp Pulse Resp BP Pulse Ox 98.4 F 103 H 20 91/57 L 03/31/19 09:28 03/31/19 09:28 03/31/19 09:28 03/31/19 09:28 - Medications Medications: Current Medications Al Hydrox/Mg Hydrox/Simethicone (Maalox Plus 30 Ml) 30 ml PO Q4 PRN PRN Reason: Dyspepsia Benztropine Mesylate (Cogentin) 0.5 mg PO [facility] Last Admin: 03/31/19 22:04 Dose: 0.5 mg Bismuth Subsalicylate (Pepto Bismol) 524 mg PO Q4 PRN PRN Reason: Dyspepsia Diphenhydramine HCl (Benadryl) 50 mg IM Q6 PRN PRN Reason: Extrapyramidal S/S Unable PO Haloperidol (Haldol) 5 mg PO Q4 PRN PRN Reason: Agitation Haloperidol Lactate (Haldol) 5 mg IM Q4 PRN PRN Reason: Agitation, Unable to Take PO Home Med (Testosterone Cypionate [Depo-Testosterone Inj]) 0.5 ml IM [facility] Last Admin: 03/28/19 18:42 Dose: 0.5 ml Hydroxyzine Pamoate (Vistaril) 50 mg PO Q8 PRN PRN Reason: Anxiety Last Admin: 03/31/19 15:00 Dose: 50 mg Hydroxyzine Pamoate (Vistaril) 50 mg PO [facility] Last Admin: 03/31/19 22:04 Dose: 50 mg Lorazepam (Ativan) 2 mg IM Q4 PRN PRN Reason: Anxiety/Agitation,Unable PO Magnesium Hydroxide (Milk Of Magnesia) 30 ml PO HS PRN PRN Reason: Constipation Pantoprazole Sodium (Protonix Ec Tab) 40 mg PO DAILY [facility] Last Admin: 03/31/19 11:30 Dose: 40 mg Prazosin HCl (Minipress) 2 mg PO [facility] Last Admin: 03/31/19 22:05 Dose: 2 mg Risperidone (Risperdal Tab) 2 mg PO HS [facility] Last Admin: 03/31/19 22:04 Dose: 2 mg Sitagliptin Phosphate (Januvia) 100 mg PO DAILY [facility] Last Admin: 03/31/19 11:30 Dose: 100 mg Temazepam (Restoril) 15 mg PO [facility] Last Admin: 03/31/19 22:04 Dose: 15 mg Venlafaxine HCl (Effexor Xr) 37.5 mg PO DAILY [facility] Last Admin: 03/31/19 11:30 Dose: 37.5 mg - Labs Labs: 03/26/19 14:00 03/26/19 14:00 PT 32.3 Seconds (9.8-13.1) H 03/30/19 13:35 INR 2.8 03/30/19 13:35 APTT 51.0 Seconds (25.6-37.1) H 03/26/19 14:00 - Constitutional Appears: No Acute Distress - Head Exam Head Exam: NORMAL INSPECTION - Eye Exam Eye Exam: EOMI, PERRL - ENT Exam ENT Exam: Mucous Membranes Moist - Neck Exam Neck Exam: Full ROM. absent: Lymphadenopathy, Tenderness, Thyromegaly - Respiratory Exam Respiratory Exam: Clear to Ausculation Bilateral, NORMAL BREATHING PATTERN - Cardiovascular Exam Cardiovascular Exam: REGULAR RHYTHM, +S1, +S2 - GI/Abdominal Exam GI & Abdominal Exam: Soft, Normal Bowel Sounds. absent: Distended, Tenderness - Extremities Exam Extremities Exam: absent: Calf Tenderness, Pedal Edema - Neurological Exam Neurological Exam: Alert, Awake, Oriented x3 - Psychiatric Exam Psychiatric exam: Flat Affect - Skin Skin Exam: Dry, Warm Assessment and Plan - Assessment and Plan (Free Text) Assessment: 33 y/o transgender with PMD of Anxiety, depression, protein S deficiency, Multiple PE/DVT and Transgender change(M2F) admitted to psych for evaluation and treatment of suicidal attempt s/p warfarin OD/treated with Vit K. Plan: DM-II - HBA1C 6.6 on 03/2019 - started Januvia 100 mg PO daily due to metformin side effects Protein S deficiency Coumadin OD - INR/PT pending - Refused blood work today - Will restart warfarin as soon as INR therapeutic - will continue to monitor - rest of plan as ordered Suicidal Attempt/Depression - Continue management as per psych team Patient seen with Dr. Arreaga, agrees with plan <Asael Arreaga - Last Filed: 04/03/19 08:09> Objective - Vital Signs/Intake and Output Vital Signs (last 24 hours): Temp Pulse Resp BP Pulse Ox 97.6 F 91 H 20 112/75 04/02/19 09:08 04/02/19 09:08 04/02/19 09:08 04/02/19 09:08 - Labs Labs: 03/26/19 14:00 03/26/19 14:00 PT 32.3 Seconds (9.8-13.1) H 03/30/19 13:35 INR 2.8 03/30/19 13:35 APTT 51.0 Seconds (25.6-37.1) H 03/26/19 14:00 Assessment and Plan - Assessment and Plan (Free Text) Assessment: Patient was personally seen and examined by me in rounds with residents. Available labs and diagnostic data reviewed. Case, Patient's condition and management plan discussed with residents in rounds. Agree with resident's progress note. Plan: As ordered.
[2019-04-01] MEDS: Venlafaxine 37.5 mg ER Cap PO SCH (08:48)
[2019-04-01] MEDS: Pantoprazole 40 mg EC Tab PO SCH (08:48)
--- NOTE | 2019-04-01 16:40 | PCM.PYCHPN ---
Psychiatric Progress Note - Psychiatric Progress Note Patient seen today, length of contact: pt evaluated discussed with team chart reviewed Patient Chief Complaint: I am anxious about leaving Problems Identified/Issues Discussed: pt evaluated reported feeling anxious about discharge, CBT provided discussed with pt importance of developing coping skills with stress , no reported side effects of effexor, pt reported feeling down today discussed possible increase in dose of effexor denied perceptual disturbances, reported clearing off of the intrusive thoughts,denied suicidal or homicidal ideation Medical Problems: multiple hospitalizations, history of non compliance Medication Change: No (start effexor ) Medical Record Reviewed: Yes Mental Status Examination - Cognitive Function Orientation: Person, Place, Situation, Time Attention: WNL Concentration: WNL Association: WNL Fund of Knowledge: WNL - Mood Mood: Depressed, Anxious - Affect Affect: Constricted, Depressed - Speech Speech: Soft - Formal Thought Process Formal Thought Process: No Impairment - Suicidal Ideation Suicidal Ideation: No - Homicidal Ideation Homicidal Ideation: No Goal/Treatment Plan - Goal/Treatment Plan Need for Continued Stay: Severe depression anxiety, Discharge may exacerbated symptoms Progress Toward Problem(s) and Goals/Treatment Plan: effexor 37.5 mg daily temazepam 15mg qhs prazosin 2mg qhs risperdal 2mg qhs and cogentin 0.5 mg qhs vistaril prn cbt group and supportive therapy Estimated Date of D/C: 04/01/19
[2019-04-02] MEDS: Pantoprazole 40 mg EC Tab PO SCH (08:43)
[2019-04-02] MEDS: Venlafaxine 37.5 mg ER Cap PO SCH (08:43)
--- NOTE | 2019-04-02 08:45 | CP.PCM.PN ---
<George Blancas - Last Filed: 04/02/19 09:47> Subjective - Date & Time of Evaluation Date of Evaluation: 04/02/19 Time of Evaluation: 08:45 - Subjective Subjective: Patient seen and examined this morning with Dr Arreaga Reports feeling better, no overnight events, noted continue to refuse blood tests, possible d/c today/ Objective - Vital Signs/Intake and Output Vital Signs (last 24 hours): Temp Pulse Resp BP Pulse Ox 97.9 F 98 H 18 104/72 04/01/19 17:00 04/01/19 17:00 04/01/19 17:00 04/01/19 17:00 - Medications Medications: Current Medications Al Hydrox/Mg Hydrox/Simethicone (Maalox Plus 30 Ml) 30 ml PO Q4 PRN PRN Reason: Dyspepsia Benztropine Mesylate (Cogentin) 0.5 mg PO HS [facility] Last Admin: 04/01/19 21:47 Dose: 0.5 mg Bismuth Subsalicylate (Pepto Bismol) 524 mg PO Q4 PRN PRN Reason: Dyspepsia Diphenhydramine HCl (Benadryl) 50 mg IM Q6 PRN PRN Reason: Extrapyramidal S/S Unable PO Haloperidol (Haldol) 5 mg PO Q4 PRN PRN Reason: Agitation Haloperidol Lactate (Haldol) 5 mg IM Q4 PRN PRN Reason: Agitation, Unable to Take PO Home Med (Testosterone Cypionate [Depo-Testosterone Inj]) 0.5 ml IM [facility] Last Admin: 03/28/19 18:42 Dose: 0.5 ml Hydroxyzine Pamoate (Vistaril) 50 mg PO Q8 PRN PRN Reason: Anxiety Last Admin: 03/31/19 15:00 Dose: 50 mg Hydroxyzine Pamoate (Vistaril) 50 mg PO HS [facility] Last Admin: 04/01/19 21:46 Dose: 50 mg Lorazepam (Ativan) 2 mg IM Q4 PRN PRN Reason: Anxiety/Agitation,Unable PO Magnesium Hydroxide (Milk Of Magnesia) 30 ml PO HS PRN PRN Reason: Constipation Pantoprazole Sodium (Protonix Ec Tab) 40 mg PO DAILY [facility] Last Admin: 04/02/19 08:43 Dose: 40 mg Prazosin HCl (Minipress) 2 mg PO HS [facility] Last Admin: 04/01/19 21:47 Dose: 2 mg Risperidone (Risperdal Tab) 2 mg PO HS [facility] Last Admin: 04/01/19 21:47 Dose: 2 mg Sitagliptin Phosphate (Januvia) 100 mg PO DAILY [facility] Last Admin: 04/02/19 08:43 Dose: 100 mg Temazepam (Restoril) 15 mg PO [facility] Last Admin: 04/01/19 21:46 Dose: 15 mg Venlafaxine HCl (Effexor Xr) 37.5 mg PO DAILY [facility] Last Admin: 04/02/19 08:43 Dose: 37.5 mg - Labs Labs: 03/26/19 14:00 03/26/19 14:00 PT 32.3 Seconds (9.8-13.1) H 03/30/19 13:35 INR 2.8 03/30/19 13:35 APTT 51.0 Seconds (25.6-37.1) H 03/26/19 14:00 - Constitutional Appears: No Acute Distress - Head Exam Head Exam: NORMAL INSPECTION - Eye Exam Eye Exam: EOMI, PERRL - Neck Exam Neck Exam: Full ROM. absent: Lymphadenopathy, Tenderness, Thyromegaly - Respiratory Exam Respiratory Exam: Clear to Ausculation Bilateral, NORMAL BREATHING PATTERN - Cardiovascular Exam Cardiovascular Exam: REGULAR RHYTHM, +S1, +S2 - GI/Abdominal Exam GI & Abdominal Exam: Soft, Normal Bowel Sounds. absent: Distended, Tenderness - Extremities Exam Extremities Exam: absent: Calf Tenderness, Pedal Edema - Neurological Exam Neurological Exam: Alert, Awake, Oriented x3 - Psychiatric Exam Psychiatric exam: Normal Mood - Skin Skin Exam: Dry, Warm Assessment and Plan - Assessment and Plan (Free Text) Assessment: 33 y/o transgender with PMD of Anxiety, depression, protein S deficiency, Multiple PE/DVT and Transgender change(M2F) admitted to psych for evaluation and treatment of suicidal attempt s/p warfarin OD/treated with Vit K. Plan: DM-II - HBA1C 6.6 on 03/2019 - Januvia 100 mg PO daily Protein S deficiency Coumadin OD - INR/PT pending - Refusing blood work - Will restart warfarin as soon as INR therapeutic - will continue to monitor - rest of plan as ordered Suicidal Attempt/Depression - Continue management as per psych team Patient discussed with Dr. Arreaga <Asael Arreaga - Last Filed: 04/03/19 08:06> Objective - Vital Signs/Intake and Output Vital Signs (last 24 hours): Temp Pulse Resp BP Pulse Ox 97.6 F 91 H 20 112/75 04/02/19 09:08 04/02/19 09:08 04/02/19 09:08 04/02/19 09:08 - Labs Labs: 03/26/19 14:00 03/26/19 14:00 PT 32.3 Seconds (9.8-13.1) H 03/30/19 13:35 INR 2.8 03/30/19 13:35 APTT 51.0 Seconds (25.6-37.1) H 03/26/19 14:00 Assessment and Plan - Assessment and Plan (Free Text) Assessment: Patient was personally seen and examined by me in rounds with residents. Available labs and diagnostic data reviewed. Case, Patient's condition and management plan discussed with residents in rounds. Agree with resident's progress note. Plan: As ordered.
[2019-04-02 09:09] VITALS: BP 112/75; PULSE 91; RESP 20; TEMP 97.6
--- NOTE | 2019-04-02 11:42 | PCM.PYCHDC ---
Mental Status Examination - Mental Status Examination Orientation: Person, Place, Situation Memory: Intact Mood: Neutral Affect: Broad Speech: Appropriate Attention: WNL Concentration: WNL Association: WNL Fund of Knowledge: WNL Formal Thought Process: No Impairment Description of patient's judgement and insight: partial insight poor judgment Psychotic Thoughts and Behaviors: pt on discharge denied perceptual disturbances, non elicited Suicidal Ideation: No Current Homicidal Ideation?: No Discharge Summary - Discharge Note Reason for Hospitalization: pt is a 34 ys old male with previous psychiatric diagnosis of depression and borderline personality disorder brought to ER after suicidal attempt by overdose on Coumadin, pt reported has not been compliant with follow up visits, became increasingly depressed feeling lonely helpless and worthless, he also relapsed on cocaine , pt felt his life has no meaning and attempted suicide by overdose pt on the unit presenting with poor eye contact, depressed mood , reported feeling angry irritable, having repeated scenes of hurting himself and others, pt continues to report passive suicidal ideation feeling his life is worthless, denied active thoughts of self harm on the unit, denied command hallucinations Consultations:: List each consultation separately and include: 1. Reason for request. 2. Findings. 3. Follow-up Summary of Hospital Course include:: 1. Description of specific treatment plan utilized for patients during their course of treatmen. 2. Summarize the time- course for resolution of acute symptoms and/or regressed behaviors. 3. Describe issues identified and worked on during hospitalization. 4. Describe medication utilized. 5. Describe medical problems identified and treated. 6. Reassessment of suicide risk Summary of Hospital Course: pt on admission reported increased anger, irritability with intrusive thoughts resulting in homicidal ideation, pt was started on risperidone and cogentin pt also was placed on effexor for depression CBT group and supportive therapy provided pt was compliant with medications, and treatment attended groups no reported side effects on discharge pt reported clearing off of the intrusive thoughts, denied any current suicidal or homicidal ideation, denied perceptual disturbances - Diagnosis (1) Borderline personality disorder Current Visit: No Status: Acute - Final Diagnosis (DSM 5) Condition upon Discharge: GOOD DSM 5: borderline personality disorder bipolar I disorder Disposition: HOME/ ROUTINE Follow-up Treatment Plan: [facility] partial program Prescriptions/Medication Reconciliation: Benztropine [Cogentin] 0.5 mg PO HS 30 Days #30 tab hydrOXYzine Pamoate [Vistaril] 50 mg PO HS 30 Days #30 cap Prazosin HCl [Minipress] 2 mg PO HS 30 Days #60 cap risperiDONE [RisperDAL Tab] 2 mg PO HS 30 Days #30 tab Temazepam [Restoril] 15 mg PO HS 1 Days #7 cap Venlafaxine [Effexor XR] 37.5 mg PO DAILY 30 Days #30 cer - Antipsychotic Medications Pt discharged on 2 or more routine antipsychotic medications: No
== END 2019-04-02 15:19 | disposition home or self-care (01) | DRG 428 ==
LOC: H.PSYCH 17:47
PROVIDERS: ADMIT Psychiatry & Neurology Psychiatry; ATTEND Psychiatry & Neurology Psychiatry
PROC: GZHZZZZ Group Psychotherapy (ICD-10-PCS; principal; 2019-03-23)
PROC: HZ57ZZZ Individual Psychotherapy for Substance Abuse Treatment, Motivational Enhancement (ICD-10-PCS; 2019-03-23)
PROC: GZ58ZZZ Individual Psychotherapy, Cognitive-Behavioral (ICD-10-PCS; 2019-03-23)
PROC: GZ56ZZZ Individual Psychotherapy, Supportive (ICD-10-PCS; 2019-03-23)
DX: F60.3 Borderline personality disorder (principal); D68.59 Other primary thrombophilia; F14.10 Cocaine abuse, uncomplicated; F64.9 Gender identity disorder, unspecified; Z86.711 Personal history of pulmonary embolism; Z86.718 Personal history of other venous thrombosis and embolism; Z88.5 Allergy status to narcotic agent; Z91.19 Patient's noncompliance with other medical treatment and regimen; Z88.2 Allergy status to sulfonamides; Z91.011 Allergy to milk products; Z91.013 Allergy to seafood; E11.9 Type 2 diabetes mellitus without complications; R45.851 Suicidal ideations; R45.850 Homicidal ideations; F31.30 Bipolar disorder, current episode depressed, mild or moderate severity, unspecified

== ENCOUNTER 2019-04-03 10:33 | Inpatient (IN) | payer MEDICAID ==
[2019-04-03 11:08] VITALS: BMI 39.5
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
[2019-04-03 12:41] LABS: INR 2.1; PROTHROMBIN TIME 24.3 Seconds (9.8-13.1)
[2019-04-03 12:50] LABS: BASO % 0.1 % (0.0-2.0); EOS # 0.1 K/uL (0.0-0.7); EOS % 0.5 % (0.0-4.0); HEMOGLOBIN 11.1 g/dL (12.0-18.0); LYMPH # 1.6 K/uL (1.0-4.3); LYMPH % 15.1 % (20.0-40.0); MEAN CELL VOLUME 78.8 fl (80.0-94.0); MEAN CORPUSCULAR HEMOGLOBIN 25.5 pg (27.0-31.0); MEAN CORPUSCULAR HGB CONC 32.3 g/dL (33.0-37.0); MEAN PLATELET VOLUME 7.7 fl (7.2-11.7); MONO # 0.5 K/uL (0.0-0.8); MONO % 4.8 % (0.0-10.0); NEUT # 8.3 K/uL (1.8-7.0); NEUT % 79.5 % (50.0-75.0); NRBC % 0.1 % (0.0-0.0); RBC 4.37 Mil/uL (4.40-5.90); RED CELL DISTRIBUTION WIDTH 15.2 % (11.5-14.5); WHITE BLOOD COUNT 10.4 K/uL (4.8-10.8)
[2019-04-03 12:58] LABS: ALB/GLOB RATIO 1.2 (1.0-2.1); ALBUMIN 4.1 g/dL (3.5-5.0); ALT/SGPT 31 U/L (21-72); AST/SGOT 71 U/L (17-59); BLOOD UREA NITROGEN 13 mg/dl (9-20); GFR NON-AFRICAN AMERICAN > 60
--- NOTE | 2019-04-03 14:04 | RAD ---
Date of service: 04/03/2019 HISTORY: Cough COMPARISON: Comparison chest dated 11/18/2018. TECHNIQUE: 1 view obtained. FINDINGS: LUNGS: No active pulmonary disease. PLEURA: No significant pleural effusion identified, no pneumothorax apparent. CARDIOVASCULAR: No aortic atherosclerotic calcification present. Heart size upper limits of normal/borderline enlarged. No pulmonary vascular congestion. OSSEOUS STRUCTURES: No significant abnormalities. VISUALIZED UPPER ABDOMEN: Normal. OTHER FINDINGS: None. IMPRESSION: No active disease.
[2019-04-03 17:12] LABS: SQUAMOUS EPITHIAL 2 /hpf (0-5); URINE BACTERIA RARE (<OCC); URINE BILIRUBIN NEGATIVE (NEGATIVE); URINE BLOOD NEGATIVE (NEGATIVE); URINE CLARITY SLIGHTY-CLOUDY (Clear); URINE COLOR YELLOW (YELLOW); URINE GLUCOSE (UA) NEG (NEGATIVE); URINE LEUKOCYTE ESTERASE SMALL Leu/uL (Negative); URINE PROTEIN 30 mg/dL (NEGATIVE); URINE UROBILINOGEN 0.2-1.0 mg/dL (0.2-1.0)
--- NOTE | 2019-04-03 19:55 | ED PDOC ---
- Laboratory Results Result Diagrams: 04/03/19 12:46 04/03/19 12:09 Lab Results: PT 24.3 Seconds (9.8-13.1) H 04/03/19 12:09 INR 2.1 04/03/19 12:09 Troponin I < 0.0120 ng/mL (0.00-0.120) 04/03/19 14:02 Total Bilirubin 0.3 mg/dl (0.2-1.3) 04/03/19 12:09 AST 71 U/L (17-59) H D 04/03/19 12:09 ALT 31 U/L (21-72) 04/03/19 12:09 Alkaline Phosphatase 70 U/L (38-126) 04/03/19 12:09 Total Protein 7.6 G/DL (6.3-8.2) 04/03/19 12:09 Albumin 4.1 g/dL (3.5-5.0) 04/03/19 12:09 Globulin 3.5 gm/dL (2.2-3.9) 04/03/19 12:09 Albumin/Globulin Ratio 1.2 (1.0-2.1) 04/03/19 12:09 Urine Color Yellow (YELLOW) 04/03/19 16:43 Urine Clarity Slighty-cloudy (Clear) 04/03/19 16:43 Urine pH 7.0 (5.0-8.0) 04/03/19 16:43 Ur Specific [place] 1.028 (1.003-1.030) 04/03/19 16:43 Urine Protein 30 mg/dL (NEGATIVE) 04/03/19 16:43 Urine Glucose (UA) Neg mg/dL (NEGATIVE) 04/03/19 16:43 Urine Ketones Negative mg/dL (NEGATIVE) 04/03/19 16:43 Urine Blood Negative (NEGATIVE) 04/03/19 16:43 Urine Nitrate Negative (NEGATIVE) 04/03/19 16:43 Urine Bilirubin Negative (NEGATIVE) 04/03/19 16:43 Urine Urobilinogen 0.2-1.0 mg/dL (0.2-1.0) 04/03/19 16:43 Ur Leukocyte Esterase Small [place]/uL (Negative) 04/03/19 16:43 Urine RBC (Auto) 2 /hpf (0-3) 04/03/19 16:43 Urine Microscopic WBC 22 /hpf (0-5) H 04/03/19 16:43 Ur Squamous Epith Cells 2 /hpf (0-5) 04/03/19 16:43 Urine Bacteria Rare (<OCC) 04/03/19 16:43 - ECG O2 Sat by Pulse Oximetry: 98 (RA) Pulse Ox Interpretation: Normal Medical Decision Making Medical Decision Making: Time: 1899 --Patient signed out to this provider by Dr. Brown, pending [facility] [place]. Time: 2029 --Patient is accepted for admission by Dr. Vigil with diagnosis: Major Depressive Disorder --Cocaine + in Utox Time: 0000 --Resting comfortably, waiting for bed Time: 300 --No changes Time: 600 --Calm, cooperative, resting quietly Scribe Attestation: Documented by Marcela Fox, acting as a scribe for Bob Holguin MD. Provider Scribe Attestation: All medical record entries made by the Scribe were at my direction and personally dictated by me. I have reviewed the chart and agree that the record accurately reflects my personal performance of the history, physical exam, medical decision making, and the department course for this patient. I have also personally directed, reviewed, and agree with the discharge instructions and d isposition. Disposition - Clinical Impression Clinical Impression: Depression, Schizoaffective disorder - POA Present On Arrival: None - Disposition Disposition: Admitted as In-Patient Disposition Time: 20:00 Condition: FAIR
--- NOTE | 2019-04-03 20:01 | CARD ---
APPROVED REPORT Date of service: 04/03/2019 EKG Measurement Heart [id number] <Conclusion> Normal sinus rhythm ST elevation, consider early repolarization, pericarditis, or injury Abnormal ECG
[2019-04-03 20:29] LABS: BARBITURATES, UR NEGATIVE (NEGATIVE); BENZODIAZEPINES, UR NEGATIVE (NEGATIVE); OPIATES, UR NEGATIVE (NEGATIVE); PHENCYCLIDINE, UR NEGATIVE (NEGATIVE)
[2019-04-04] MEDS ORDERED: Magnesium Hydroxide Susp 30 ml UD PO PRN (11:19)
[2019-04-04] MEDS ORDERED: DiphenhydrAMINE 50 mg/ml Inj IM PRN (11:19)
[2019-04-04] MEDS ORDERED: Alum-Mag Hydrox-Simethicone Susp (30 mL) PO PRN (11:19)
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
[2019-04-04 15:02] LABS: INR 1.6; PROTHROMBIN TIME 18.8 Seconds (9.8-13.1)
[2019-04-04 20:59] VITALS: O2SAT 98
[2019-04-05] MEDS: Venlafaxine 37.5 mg ER Cap PO SCH (09:07)
--- NOTE | 2019-04-05 12:23 | PCM.PYCHPN ---
Psychiatric Progress Note - Psychiatric Progress Note Patient seen today, length of contact: pt evaluated discussed with team chart reviewed Patient Chief Complaint: I feel hopeless Problems Identified/Issues Discussed: pt seen in bed, partial eye contact speech soft and underproductive, depressed mood and affect , continues to report passive suicidal ideation without active plan on the unit also reported intrusive thoughts of hurting others, discussed gradual increasing of risperdal and effexor, no reported side effects Medical Problems: multiple hospitalizations due to suicidal attempts DSM 5 Symptoms Update: borderline personality bipolar I disorder Medication Change: Yes Medical Record Reviewed: Yes Mental Status Examination - Cognitive Function Orientation: Person, Place, Situation Attention: WNL Concentration: WNL Fund of Knowledge: WNL Decription of patient's judgement and insights: partial insight poor judgment - Mood Mood: Depressed, Anxious - Affect Affect: Constricted, Depressed - Formal Thought Process Formal Thought Process: No Impairment - Suicidal Ideation Suicidal Ideation: Yes - Homicidal Ideation Homicidal Ideation: No Goal/Treatment Plan - Goal/Treatment Plan Need for Continued Stay: Remain at risks for inpatient hospitalization, Severe depression anxiety Progress Toward Problem(s) and Goals/Treatment Plan: start effexor 37.5mg daily risperidone 2mg qhs prazosin 2mg qhs temazepam 15mg qhs motivational group and supportive therapy
[2019-04-05 15:13] LABS: INR 1.5; PROTHROMBIN TIME 16.8 Seconds (9.8-13.1)
[2019-04-05 15:15] LABS: PARTIAL THROMBOPLASTIN TIME 39.2 Seconds (25.6-37.1)
--- NOTE | 2019-04-05 17:52 | CON ---
DATE: 04/05/2019 CHIEF COMPLAINT: This is medical consult for Loco Alcantara who was admitted to Psychiatry unit. Medical consult was called for management of medical issues. The patient was admitted for suicidal ideation and major depression to psych unit. HISTORY OF PRESENT ILLNESS: This is a 34-year-old biological male patient with history of protein S deficiency and multiple episodes of pulmonary embolism and DVTs, who was recently discharged from the hospital after treatment for Coumadin overdose and suicidal attempt psych unit admission, and after stabilization, the patient was discharged home. After reaching home, the patient did not take any medication, started feeling suicidal and was brought back to the emergency room where after crisis intervention, the patient was admitted to psych unit again and medical consult was requested. At this time, the patient denies any specific medical complaints. PAST MEDICAL HISTORY: Significant for major depressive disorder, protein S deficiency. PAST SURGICAL HISTORY: Unremarkable. FAMILY HISTORY: Noncontributory. PERSONAL HISTORY: The patient is currently nonsmoker, nondrinker. No substance abuse although urine toxicology is positive for cocaine. MEDICATIONS: The patient is on multiple medications, although according to the patient, the patient did not take any medication after discharge. REVIEW OF SYSTEMS: Negative for headache, dizziness, syncope, loss of consciousness, chest pain, shortness of breath, nausea, vomiting, diarrhea, or constipation, any new joint or extremity pain. Review of system of all other organ system is unremarkable. PHYSICAL EXAMINATION: GENERAL: A well-built, well-nourished, overweight biological male 34-year-old, in no acute distress. VITAL SIGNS: Temperature afebrile, pulse 88, respirations 18, blood pressure 136/76. HEENT: Pupils reacting to light. No JVD. No thyromegaly. No lymphadenopathy. No nystagmus. Normocephalic, atraumatic skull. HEART: S1, S2. Normal, regular. LUNGS: Good bilateral air exchange. ABDOMEN: Soft, nontender. EXTREMITIES: No edema. No calf swelling. No tenderness. No acute ischemia. CENTRAL NERVOUS SYSTEM: Essentially unchanged and there is no sign of any acute gross focal, motor, or sensory neurological deficit. DIAGNOSTIC DATA: Available diagnostic data reviewed. CONSULTING IMPRESSION: 1. The patient with multiple episodes of deep venous thrombosis and pulmonary embolism. 2. History of protein S deficiency. 3. Obesity. 4. Major depressive disorder. PLAN: As ordered. Asael Arreaga MD
[2019-04-06] MEDS: Venlafaxine 37.5 mg ER Cap PO SCH (08:58)
--- NOTE | 2019-04-06 11:23 | PCM.PYCHPN ---
Psychiatric Progress Note - Psychiatric Progress Note Patient seen today, length of contact: pt evaluated discussed with team chart reviewed Patient Chief Complaint: I still have the intrusive thoughts Problems Identified/Issues Discussed: pt seen in bed, depressed mood and affect , partial eye contact speech soft and underproductive, , continues to report intrusive thoughts to hurt others and self , passive suicidal ideation without active plan on the unit discussed gradual increasing of risperdal and effexor, no reported side effects Medical Problems: multiple hospitalizations due to suicidal attempts Medication Change: Yes (increase risperdal ) Medical Record Reviewed: Yes Mental Status Examination - Cognitive Function Orientation: Person, Place, Situation Attention: WNL Concentration: WNL Fund of Knowledge: WNL Decription of patient's judgement and insights: partial insight poor judgment - Mood Mood: Depressed, Anxious - Affect Affect: Constricted, Depressed - Formal Thought Process Formal Thought Process: No Impairment - Suicidal Ideation Suicidal Ideation: Yes - Homicidal Ideation Homicidal Ideation: Yes Goal/Treatment Plan - Goal/Treatment Plan Need for Continued Stay: Remain at risks for inpatient hospitalization, Severe depression anxiety Progress Toward Problem(s) and Goals/Treatment Plan: effexor 37.5mg daily risperidone 3mg qhs prazosin 2mg qhs temazepam 15mg qhs motivational group and supportive therapy
--- NOTE | 2019-04-06 13:43 | PN ---
DATE: 04/06/2019 SUBJECTIVE: The patient seen and examined. Interim events noted. Psychiatry followup and intervention noted and appreciated. The patient remains in adult psych unit. Denies any specific complaint. No specific issue reported by nursing staff. PHYSICAL EXAMINATION: GENERAL: The patient is in no acute distress. VITAL SIGNS: Stable. Physical exam is essentially unchanged. DIAGNOSTIC DATA: Available diagnostic data reviewed. Yesterday's INR was 1.5. Today's INR is pending. Coumadin was given at 6 mg dose yesterday. ASSESSMENT AND PLAN: The patient is medically stable. Plan as ordered. Asael Arreaga MD
[2019-04-06 18:01] LABS: PARTIAL THROMBOPLASTIN TIME 40.1 Seconds (25.6-37.1)
[2019-04-06 18:02] LABS: INR 1.4; PROTHROMBIN TIME 16.5 Seconds (9.8-13.1)
[2019-04-06] MEDS ORDERED: WARFARIN PO ONE (19:00)
--- NOTE | 2019-04-07 07:56 | CP.PCM.PN ---
<George Blancas - Last Filed: 04/07/19 11:43> Subjective - Date & Time of Evaluation Date of Evaluation: 04/07/19 Time of Evaluation: 07:56 - Subjective Subjective: Patient seen and examined this morning with Dr Arreaga, no overnight events Reports feeling better, no active complaints at this time Objective - Vital Signs/Intake and Output Vital Signs (last 24 hours): Temp Pulse Resp BP Pulse Ox 97.7 F 81 17 120/71 98 04/06/19 09:00 04/06/19 20:32 04/06/19 20:32 04/06/19 20:32 04/04/19 20:59 - Medications Medications: Current Medications Acetaminophen (Tylenol 325mg Tab) 650 mg PO Q4 PRN PRN Reason: Pain, moderate (4-7) Al Hydrox/Mg Hydrox/Simethicone (Maalox Plus 30 Ml) 30 ml PO Q4 PRN PRN Reason: Dyspepsia Diphenhydramine HCl (Benadryl) 50 mg IM Q6 PRN PRN Reason: Extrapyramidal S/S Unable PO Diphenhydramine HCl (Benadryl) 50 mg PO Q6 PRN PRN Reason: Extrapyramidal Symptoms Haloperidol (Haldol) 5 mg PO Q4 PRN PRN Reason: Agitation Haloperidol Lactate (Haldol) 5 mg IM Q4 PRN PRN Reason: Agitation, Unable to Take PO Hydroxyzine Pamoate (Vistaril) 50 mg PO Q8 PRN PRN Reason: Anxiety Last Admin: 04/04/19 21:53 Dose: 50 mg Hydroxyzine Pamoate (Vistaril) 50 mg PO [facility] Last Admin: 04/06/19 21:57 Dose: 50 mg Lorazepam (Ativan) 2 mg IM Q4 PRN PRN Reason: Anxiety/Agitation,Unable PO Lorazepam (Ativan) 1 mg PO Q12 PRN PRN Reason: Anxiety Magnesium Hydroxide (Milk Of Magnesia) 30 ml PO HS PRN PRN Reason: Constipation Prazosin HCl (Minipress) 2 mg PO HS [facility] Last Admin: 04/06/19 21:56 Dose: 2 mg Risperidone (Risperdal Tab) 3 mg PO [facility] Last Admin: 04/06/19 21:56 Dose: 3 mg Temazepam (Restoril) 15 mg PO [facility] Last Admin: 04/06/19 21:56 Dose: 15 mg Venlafaxine HCl (Effexor Xr) 37.5 mg PO DAILY [facility] Last Admin: 04/06/19 08:58 Dose: 37.5 mg - Labs Labs: 04/03/19 12:46 04/03/19 12:09 PT 16.5 Seconds (9.8-13.1) H 04/06/19 17:30 INR 1.4 04/06/19 17:30 APTT 40.1 Seconds (25.6-37.1) H 04/06/19 17:30 - Constitutional Appears: No Acute Distress - Head Exam Head Exam: NORMAL INSPECTION - Eye Exam Eye Exam: EOMI, Normal appearance, PERRL - ENT Exam ENT Exam: Mucous Membranes Moist - Neck Exam Neck Exam: Full ROM. absent: Tenderness, Thyromegaly - Respiratory Exam Respiratory Exam: Clear to Ausculation Bilateral, NORMAL BREATHING PATTERN - Cardiovascular Exam Cardiovascular Exam: REGULAR RHYTHM, +S1, +S2 - GI/Abdominal Exam GI & Abdominal Exam: Soft. absent: Distended, Tenderness - Extremities Exam Extremities Exam: absent: Pedal Edema - Neurological Exam Neurological Exam: Alert, Awake, CN II-XII Intact, Oriented x3 - Skin Skin Exam: Dry, Warm Assessment and Plan - Assessment and Plan (Free Text) Assessment: 34 yo male patient admitted with MDD and suicidal ideation. Plan Protein S deficiency - VSS - Clinically stable - INR subtherapeutic, s/p Warfarin 6 mg 2 days ago - INR today pending - will f/u MDD - continue management as per Psych team. Case discussed with Dr Arreaga. <Asael Arreaga - Last Filed: 04/08/19 16:48> Objective - Vital Signs/Intake and Output Vital Signs (last 24 hours): Temp Pulse Resp BP Pulse Ox 98.4 F 98 H 19 100/70 98 04/08/19 16:45 04/08/19 16:45 04/08/19 16:45 04/08/19 16:45 04/04/19 20:59 - Medications Medications: Current Medications Acetaminophen (Tylenol 325mg Tab) 650 mg PO Q4 PRN PRN Reason: Pain, moderate (4-7) Al Hydrox/Mg Hydrox/Simethicone (Maalox Plus 30 Ml) 30 ml PO Q4 PRN PRN Reason: Dyspepsia Diphenhydramine HCl (Benadryl) 50 mg IM Q6 PRN PRN Reason: Extrapyramidal S/S Unable PO Diphenhydramine HCl (Benadryl) 50 mg PO Q6 PRN PRN Reason: Extrapyramidal Symptoms Last Admin: 04/07/19 18:57 Dose: 50 mg Haloperidol (Haldol) 5 mg PO Q4 PRN PRN Reason: Agitation Last Admin: 04/07/19 18:57 Dose: 5 mg Haloperidol Lactate (Haldol) 5 mg IM Q4 PRN PRN Reason: Agitation, Unable to Take PO Hydroxyzine Pamoate (Vistaril) 50 mg PO Q8 PRN PRN Reason: Anxiety Last Admin: 04/08/19 13:20 Dose: 50 mg Hydroxyzine Pamoate (Vistaril) 50 mg PO HS [facility] Last Admin: 04/07/19 21:51 Dose: 50 mg Lorazepam (Ativan) 2 mg IM Q4 PRN PRN Reason: Anxiety/Agitation,Unable PO Lorazepam (Ativan) 1 mg PO Q12 PRN PRN Reason: Anxiety Magnesium Hydroxide (Milk Of Magnesia) 30 ml PO HS PRN PRN Reason: Constipation Prazosin HCl (Minipress) 2 mg PO HS [facility] Last Admin: 04/07/19 21:52 Dose: 2 mg Risperidone (Risperdal Tab) 3 mg PO HS [facility] Last Admin: 04/07/19 21:52 Dose: 3 mg Temazepam (Restoril) 15 mg PO [facility] Last Admin: 04/07/19 21:51 Dose: 15 mg Venlafaxine HCl (Effexor Xr) 37.5 mg PO DAILY [facility] Last Admin: 04/08/19 08:33 Dose: 37.5 mg - Labs Labs: 04/03/19 12:46 04/03/19 12:09 PT 21.2 Seconds (9.8-13.1) H 04/08/19 14:15 INR 1.8 04/08/19 14:15 APTT 43.8 Seconds (25.6-37.1) H 04/07/19 14:40 Assessment and Plan - Assessment and Plan (Free Text) Assessment: Patient was personally seen and examined by me in rounds with residents. Available labs and diagnostic data reviewed. Case, Patient's condition and management plan discussed with residents in rounds. Agree with resident's progress note. Plan: As ordered.
[2019-04-07] MEDS: Venlafaxine 37.5 mg ER Cap PO SCH (08:46)
[2019-04-07 15:02] LABS: INR 1.7
[2019-04-07 15:05] LABS: PARTIAL THROMBOPLASTIN TIME 43.8 Seconds (25.6-37.1)
--- NOTE | 2019-04-07 18:18 | PCM.PYCHPN ---
Psychiatric Progress Note - Psychiatric Progress Note Patient seen today, length of contact: pt evaluated discussed with team chart reviewed Patient Chief Complaint: reports feeling a little less anxious and depressed. denies attempts at self harm. staff report pt seen about unit and has been rx adherent. Problems Identified/Issues Discussed: alteration in mood\ alteration in coping Medical Problems: per chart Diagnostic Results: per psychiatry per medicine per nursing per psychotherapist social worker per recreation therapist DSM 5 Symptoms Update: some improvement mood some irritability denies attempts at self harm Medication Change: No Medical Record Reviewed: Yes Consults ordered or reviewed: pt being followed by medical team Mental Status Examination - Cognitive Function Orientation: Person, Place, Situation Attention: WNL Concentration: WNL Fund of Knowledge: WNL Decription of patient's judgement and insights: impaired - Mood Mood: Depressed, Anxious - Affect Affect: Constricted, Depressed - Formal Thought Process Formal Thought Process: No Impairment - Suicidal Ideation Suicidal Ideation: No - Homicidal Ideation Homicidal Ideation: No Goal/Treatment Plan - Goal/Treatment Plan Need for Continued Stay: Remain at risks for inpatient hospitalization, Severe depression anxiety Progress Toward Problem(s) and Goals/Treatment Plan: inpt milieu adjust meds per status vital signs and clinical observation per protocol and per clinical status discharge planning in progress Estimated Date of D/C: 04/13/19 - Smoking Cessation Smoking Cessation Initiated: No Reason for not providing: pt defers
--- NOTE | 2019-04-08 06:56 | CP.PCM.PN ---
<George Blancas - Last Filed: 04/08/19 10:20> Subjective - Date & Time of Evaluation Date of Evaluation: 04/08/19 Time of Evaluation: 06:55 - Subjective Subjective: Patient seen and examined this morning with Dr Arreaga, no overnight events Reports feeling better, no active complaints at this time Objective - Vital Signs/Intake and Output Vital Signs (last 24 hours): Temp Pulse Resp BP Pulse Ox 97.6 F 84 18 113/77 98 04/07/19 22:00 04/07/19 22:00 04/07/19 22:00 04/07/19 22:00 04/04/19 20:59 - Medications Medications: Current Medications Acetaminophen (Tylenol 325mg Tab) 650 mg PO Q4 PRN PRN Reason: Pain, moderate (4-7) Al Hydrox/Mg Hydrox/Simethicone (Maalox Plus 30 Ml) 30 ml PO Q4 PRN PRN Reason: Dyspepsia Diphenhydramine HCl (Benadryl) 50 mg IM Q6 PRN PRN Reason: Extrapyramidal S/S Unable PO Diphenhydramine HCl (Benadryl) 50 mg PO Q6 PRN PRN Reason: Extrapyramidal Symptoms Last Admin: 04/07/19 18:57 Dose: 50 mg Haloperidol (Haldol) 5 mg PO Q4 PRN PRN Reason: Agitation Last Admin: 04/07/19 18:57 Dose: 5 mg Haloperidol Lactate (Haldol) 5 mg IM Q4 PRN PRN Reason: Agitation, Unable to Take PO Hydroxyzine Pamoate (Vistaril) 50 mg PO Q8 PRN PRN Reason: Anxiety Last Admin: 04/04/19 21:53 Dose: 50 mg Hydroxyzine Pamoate (Vistaril) 50 mg PO HS [facility] Last Admin: 04/07/19 21:51 Dose: 50 mg Lorazepam (Ativan) 2 mg IM Q4 PRN PRN Reason: Anxiety/Agitation,Unable PO Lorazepam (Ativan) 1 mg PO Q12 PRN PRN Reason: Anxiety Magnesium Hydroxide (Milk Of Magnesia) 30 ml PO HS PRN PRN Reason: Constipation Prazosin HCl (Minipress) 2 mg PO HS [facility] Last Admin: 04/07/19 21:52 Dose: 2 mg Risperidone (Risperdal Tab) 3 mg PO HS [facility] Last Admin: 04/07/19 21:52 Dose: 3 mg Temazepam (Restoril) 15 mg PO HS [facility] Last Admin: 04/07/19 21:51 Dose: 15 mg Venlafaxine HCl (Effexor Xr) 37.5 mg PO DAILY [facility] Last Admin: 04/07/19 08:46 Dose: 37.5 mg - Labs Labs: 04/03/19 12:46 04/03/19 12:09 PT 19.0 Seconds (9.8-13.1) H 04/07/19 14:40 INR 1.7 04/07/19 14:40 APTT 43.8 Seconds (25.6-37.1) H 04/07/19 14:40 - Constitutional Appears: No Acute Distress - Head Exam Head Exam: NORMAL INSPECTION - Eye Exam Eye Exam: Normal appearance - ENT Exam ENT Exam: Mucous Membranes Moist - Neck Exam Neck Exam: Full ROM, Normal Inspection - Respiratory Exam Respiratory Exam: Clear to Ausculation Bilateral, NORMAL BREATHING PATTERN - Cardiovascular Exam Cardiovascular Exam: REGULAR RHYTHM, +S1, +S2 - GI/Abdominal Exam GI & Abdominal Exam: Soft. absent: Distended, Tenderness - Extremities Exam Extremities Exam: absent: Pedal Edema - Neurological Exam Neurological Exam: Alert, Awake, Oriented x3 - Skin Skin Exam: Dry, Warm Assessment and Plan - Assessment and Plan (Free Text) Assessment: 34 yo male patient admitted with MDD and suicidal ideation. Plan Protein S deficiency - VSS - Clinically stable - INR subtherapeutic, s/p Warfarin 5 mg yesterday - f/u INR MDD - continue management per Psych team. Case discussed with Dr Arreaga. <Asael Arreaga - Last Filed: 04/08/19 16:45> Objective - Vital Signs/Intake and Output Vital Signs (last 24 hours): Temp Pulse Resp BP Pulse Ox 97.7 F 96 H 20 109/76 98 04/08/19 08:58 04/08/19 08:58 04/08/19 08:58 04/08/19 08:58 04/04/19 20:59 - Medications Medications: Current Medications Acetaminophen (Tylenol 325mg Tab) 650 mg PO Q4 PRN PRN Reason: Pain, moderate (4-7) Al Hydrox/Mg Hydrox/Simethicone (Maalox Plus 30 Ml) 30 ml PO Q4 PRN PRN Reason: Dyspepsia Diphenhydramine HCl (Benadryl) 50 mg IM Q6 PRN PRN Reason: Extrapyramidal S/S Unable PO Diphenhydramine HCl (Benadryl) 50 mg PO Q6 PRN PRN Reason: Extrapyramidal Symptoms Last Admin: 04/07/19 18:57 Dose: 50 mg Haloperidol (Haldol) 5 mg PO Q4 PRN PRN Reason: Agitation Last Admin: 04/07/19 18:57 Dose: 5 mg Haloperidol Lactate (Haldol) 5 mg IM Q4 PRN PRN Reason: Agitation, Unable to Take PO Hydroxyzine Pamoate (Vistaril) 50 mg PO Q8 PRN PRN Reason: Anxiety Last Admin: 04/08/19 13:20 Dose: 50 mg Hydroxyzine Pamoate (Vistaril) 50 mg PO HS [facility] Last Admin: 04/07/19 21:51 Dose: 50 mg Lorazepam (Ativan) 2 mg IM Q4 PRN PRN Reason: Anxiety/Agitation,Unable PO Lorazepam (Ativan) 1 mg PO Q12 PRN PRN Reason: Anxiety Magnesium Hydroxide (Milk Of Magnesia) 30 ml PO HS PRN PRN Reason: Constipation Prazosin HCl (Minipress) 2 mg PO HS [facility] Last Admin: 04/07/19 21:52 Dose: 2 mg Risperidone (Risperdal Tab) 3 mg PO HS [facility] Last Admin: 04/07/19 21:52 Dose: 3 mg Temazepam (Restoril) 15 mg PO [facility] Last Admin: 04/07/19 21:51 Dose: 15 mg Venlafaxine HCl (Effexor Xr) 37.5 mg PO DAILY [facility] Last Admin: 04/08/19 08:33 Dose: 37.5 mg - Labs Labs: 04/03/19 12:46 04/03/19 12:09 PT 21.2 Seconds (9.8-13.1) H 04/08/19 14:15 INR 1.8 04/08/19 14:15 APTT 43.8 Seconds (25.6-37.1) H 04/07/19 14:40 Assessment and Plan - Assessment and Plan (Free Text) Assessment: Patient was personally seen and examined by me in rounds with residents. Available labs and diagnostic data reviewed. Case, Patient's condition and management plan discussed with residents in rounds. Agree with resident's progress note. Plan: As ordered.
[2019-04-08] MEDS: Venlafaxine 37.5 mg ER Cap PO SCH (08:33)
[2019-04-08 14:48] LABS: INR 1.8; PROTHROMBIN TIME 21.2 Seconds (9.8-13.1)
--- NOTE | 2019-04-08 15:50 | PCM.PYCHPN ---
Psychiatric Progress Note - Psychiatric Progress Note Patient seen today, length of contact: pt evaluated discussed with team chart reviewed Patient Chief Complaint: I am having less intrusive thoughts Problems Identified/Issues Discussed: pt evaluated with treatment team, reported feeling less depressed, reported decrease in the intrusive suicidal and homicidal thoughts, no reported side effects of medications, attending groups, no reported changes in sleep or appetite, Medical Problems: multiple hospitalizations due to suicidal attempts DSM 5 Symptoms Update: borderline personality disorder bipolar i disorder Medication Change: No Medical Record Reviewed: Yes Mental Status Examination - Cognitive Function Orientation: Person, Place, Situation Attention: WNL Concentration: WNL Fund of Knowledge: WNL - Mood Mood: Depressed, Anxious - Affect Affect: Constricted, Depressed - Formal Thought Process Formal Thought Process: No Impairment - Suicidal Ideation Suicidal Ideation: No - Homicidal Ideation Homicidal Ideation: No Goal/Treatment Plan - Goal/Treatment Plan Need for Continued Stay: Remain at risks for inpatient hospitalization, Severe depression anxiety Progress Toward Problem(s) and Goals/Treatment Plan: effexor 37.5mg daily risperidone 3mg qhs prazosin 2mg qhs temazepam 15mg qhs motivational group and supportive therapy Estimated Date of D/C: 04/13/19
--- NOTE | 2019-04-09 09:10 | CP.PCM.PN ---
Subjective - Date & Time of Evaluation Date of Evaluation: 04/09/19 Time of Evaluation: 09:10 - Subjective Subjective: Patient seen and examined this morning with Dr Arreaga, no overnight events, no active complaints at this time Objective - Vital Signs/Intake and Output Vital Signs (last 24 hours): Temp Pulse Resp BP Pulse Ox 97.8 F 73 20 108/72 98 04/09/19 09:00 04/09/19 09:00 04/09/19 09:00 04/09/19 09:00 04/04/19 20:59 - Medications Medications: Current Medications Acetaminophen (Tylenol 325mg Tab) 650 mg PO Q4 PRN PRN Reason: Pain, moderate (4-7) Al Hydrox/Mg Hydrox/Simethicone (Maalox Plus 30 Ml) 30 ml PO Q4 PRN PRN Reason: Dyspepsia Diphenhydramine HCl (Benadryl) 50 mg IM Q6 PRN PRN Reason: Extrapyramidal S/S Unable PO Diphenhydramine HCl (Benadryl) 50 mg PO Q6 PRN PRN Reason: Extrapyramidal Symptoms Last Admin: 04/07/19 18:57 Dose: 50 mg Haloperidol (Haldol) 5 mg PO Q4 PRN PRN Reason: Agitation Last Admin: 04/07/19 18:57 Dose: 5 mg Haloperidol Lactate (Haldol) 5 mg IM Q4 PRN PRN Reason: Agitation, Unable to Take PO Hydroxyzine Pamoate (Vistaril) 50 mg PO Q8 PRN PRN Reason: Anxiety Last Admin: 04/08/19 13:20 Dose: 50 mg Hydroxyzine Pamoate (Vistaril) 50 mg PO [facility] Last Admin: 04/08/19 21:03 Dose: 50 mg Lorazepam (Ativan) 2 mg IM Q4 PRN PRN Reason: Anxiety/Agitation,Unable PO Lorazepam (Ativan) 1 mg PO Q12 PRN PRN Reason: Anxiety Magnesium Hydroxide (Milk Of Magnesia) 30 ml PO HS PRN PRN Reason: Constipation Prazosin HCl (Minipress) 2 mg PO HS [facility] Last Admin: 04/08/19 21:03 Dose: 2 mg Risperidone (Risperdal Tab) 3 mg PO HS [facility] Last Admin: 04/08/19 21:03 Dose: 3 mg Temazepam (Restoril) 15 mg PO HS [facility] Last Admin: 04/08/19 21:03 Dose: 15 mg Venlafaxine HCl (Effexor Xr) 37.5 mg PO DAILY [facility] Last Admin: 04/08/19 08:33 Dose: 37.5 mg - Labs Labs: 04/03/19 12:46 04/03/19 12:09 PT 21.2 Seconds (9.8-13.1) H 04/08/19 14:15 INR 1.8 04/08/19 14:15 APTT 43.8 Seconds (25.6-37.1) H 04/07/19 14:40 - Constitutional Appears: Non-toxic, No Acute Distress - Head Exam Head Exam: NORMAL INSPECTION - Eye Exam Eye Exam: EOMI, Normal appearance, PERRL - ENT Exam ENT Exam: Mucous Membranes Moist - Neck Exam Neck Exam: Full ROM. absent: Tenderness, Thyromegaly - Respiratory Exam Respiratory Exam: Clear to Ausculation Bilateral, NORMAL BREATHING PATTERN. absent: Chest Wall Tenderness - Cardiovascular Exam Cardiovascular Exam: REGULAR RHYTHM, +S1, +S2 - GI/Abdominal Exam GI & Abdominal Exam: Soft, Normal Bowel Sounds. absent: Distended, Tenderness - Extremities Exam Extremities Exam: absent: Calf Tenderness, Pedal Edema - Neurological Exam Neurological Exam: Alert, Awake, Oriented x3 - Skin Skin Exam: Dry, Warm Assessment and Plan - Assessment and Plan (Free Text) Assessment: 34 yo male patient admitted to Psych unit with MDD and suicidal ideation. Plan Protein S deficiency - VSS - Clinically stable - INR improving but subtherapeutic still, s/p Warfarin 7.5 mg yesterday - f/u daily INR MDD - continue management per Psych team. Case discussed with Dr Arreaga.
[2019-04-09] MEDS: Venlafaxine 37.5 mg ER Cap PO SCH (10:36)
--- NOTE | 2019-04-09 10:50 | PCM.PYCHPN ---
Psychiatric Progress Note - Psychiatric Progress Note Patient seen today, length of contact: pt evaluated discussed with team chart reviewed Patient Chief Complaint: I still have some intrusive thoughts to hurt others Problems Identified/Issues Discussed: pt evaluated , reported less depressed, affect less constricted, no changes in sleep or appetite, denied any current active thoughts to hurt self , yet reported some intrusive to hurt others , discuused increasing risperidone, no reported side effects, pt denied perceptual disturbances , Medical Problems: multiple hospitalizations due to suicidal attempts DSM 5 Symptoms Update: bipolar i disorder borderline personality disorder Medication Change: No Medical Record Reviewed: Yes Mental Status Examination - Cognitive Function Orientation: Person, Place, Situation Attention: WNL Concentration: WNL Fund of Knowledge: WNL - Mood Mood: Depressed, Anxious - Affect Affect: Constricted, Depressed - Formal Thought Process Formal Thought Process: No Impairment - Suicidal Ideation Suicidal Ideation: No - Homicidal Ideation Homicidal Ideation: No Goal/Treatment Plan - Goal/Treatment Plan Need for Continued Stay: Remain at risks for inpatient hospitalization, Severe depression anxiety, Discharge may exacerbated symptoms Progress Toward Problem(s) and Goals/Treatment Plan: effexor 37.5mg daily increase risperidone 4mg qhs prazosin 2mg qhs temazepam 15mg qhs motivational group and supportive therapy Estimated Date of D/C: 04/13/19
--- NOTE | 2019-04-09 10:57 | PCM.BM ---
<Jairo Parra - Last Filed: 04/09/19 10:37> Treatment assets and liabiliti Patient Assests: adapts well, cooperative, educated, resourceful, self-reliant, good support system (Pt. reports having a loving and supportive relationship with Mrs. Acosta, a woman who worked with [employer] and who pt considers a mother. Pt. reports having a small group of friends he refers to as his [place] who he can confide in. ), negotiates basic needs, cognitively intact - Milieu Protocol Milieu Narrative: effexor 37.5mg daily risperidone 3mg qhs prazosin 2mg qhs temazepam 15mg qhs motivational group and supportive therapy Family Contact Family involvement: Family/SO is involved Family contact: Patient declines to allow family contact at present Family contact name: Pt declined. Dave - "chosen" mother Family contacted how many times per week?: 2 - Goals for Treatment Patient goals for treatment: Pt unable to formulate specific goals at this time due to continued poor insight and judgment. Pt continues to be superficially cooperative. Discharge/Continuing Care - Education Needs Education Needs: Patient Medication, Patient Diagnosis/Disease Process, Patient Coping Skills, Patient Aftercare Safety Plan - Discharge Discharge Criteria: Tolerates medication w/o severe side effects, Free of Suicidal thoughts, Free of paranoid thoughts, Free of agitation, Normal sleep pattern, Ability to care for self, Reduction of target symptoms Discharge to:: Home - Additional Comments 04/09/19 10:39 Pt seen in treatment team on 04/08/19 from 1030 until 1034. Pt reported he is "fine." Pt reported that he has decreased suicidal ideations and thoughts to self-harm. Pt denied intent to self harm at this time. Dr. Vigil discussed increase in Risperdal. Pt reported continued impulses to lash out because he is frustrated by his intrusive thoughts. Switch from Cogentin to Vistaril discussed with pt. Pt agreeable to attend [facility] upon discharge. Pt had no questions or comments at this time. Pt admitted to continued thoughts of SI and self harm. Pt at this time denied HI and AVT Hallucinations. Pt presented as guarded and superficially cooperative. Pt's responses were short and vague. Pt's speech was soft and sharp. Pt mood and affect were flat and pt appeared ambivalent regarding treatment. Pt is oriented X4. - Treatment Team Participation Patient/Family/SO Statement: effexor 37.5mg daily risperidone 3mg qhs prazosin 2mg qhs temazepam 15mg qhs motivational group and supportive therapy Discussed with Family/SO: No Was Patient/Family/SO present at Treatment Team Meeting: Yes <Yuliya Vigil - Last Filed: 04/10/19 08:20> - Diagnosis (1) Borderline personality disorder Status: Acute Interventions: 04/10/19 08:20 psychotherapy, start mood stabilizer
[2019-04-09 14:15] LABS: PROTHROMBIN TIME 23.5 Seconds (9.8-13.1)
[2019-04-09 17:51] VITALS: BP 104/72; PULSE 86; RESP 18; TEMP 97.2
--- NOTE | 2019-04-10 07:00 | CP.PCM.PN ---
Subjective - Date & Time of Evaluation Date of Evaluation: 04/10/19 Time of Evaluation: 07:00 - Subjective Subjective: Patient seen and examined this morning with Dr Arreaga, no overnight events reported PAtient reports feeling better, no active complaints at this time Objective - Vital Signs/Intake and Output Vital Signs (last 24 hours): Temp Pulse Resp BP Pulse Ox 97.2 F L 86 18 104/72 98 04/09/19 17:50 04/09/19 17:50 04/09/19 17:50 04/09/19 17:50 04/04/19 20:59 - Medications Medications: Current Medications Acetaminophen (Tylenol 325mg Tab) 650 mg PO Q4 PRN PRN Reason: Pain, moderate (4-7) Al Hydrox/Mg Hydrox/Simethicone (Maalox Plus 30 Ml) 30 ml PO Q4 PRN PRN Reason: Dyspepsia Diphenhydramine HCl (Benadryl) 50 mg IM Q6 PRN PRN Reason: Extrapyramidal S/S Unable PO Diphenhydramine HCl (Benadryl) 50 mg PO Q6 PRN PRN Reason: Extrapyramidal Symptoms Last Admin: 04/07/19 18:57 Dose: 50 mg Haloperidol (Haldol) 5 mg PO Q4 PRN PRN Reason: Agitation Last Admin: 04/07/19 18:57 Dose: 5 mg Haloperidol Lactate (Haldol) 5 mg IM Q4 PRN PRN Reason: Agitation, Unable to Take PO Hydroxyzine Pamoate (Vistaril) 50 mg PO Q8 PRN PRN Reason: Anxiety Last Admin: 04/08/19 13:20 Dose: 50 mg Hydroxyzine Pamoate (Vistaril) 50 mg PO HS [facility] Last Admin: 04/09/19 21:15 Dose: 50 mg Lorazepam (Ativan) 2 mg IM Q4 PRN PRN Reason: Anxiety/Agitation,Unable PO Lorazepam (Ativan) 1 mg PO Q12 PRN PRN Reason: Anxiety Magnesium Hydroxide (Milk Of Magnesia) 30 ml PO HS PRN PRN Reason: Constipation Prazosin HCl (Minipress) 2 mg PO HS [facility] Last Admin: 04/09/19 21:15 Dose: 2 mg Risperidone (Risperdal Tab) 4 mg PO HS [facility] Last Admin: 04/09/19 21:15 Dose: 4 mg Temazepam (Restoril) 15 mg PO HS [facility] Last Admin: 04/09/19 21:15 Dose: 15 mg Venlafaxine HCl (Effexor Xr) 37.5 mg PO DAILY [facility] Last Admin: 04/09/19 10:36 Dose: 37.5 mg - Labs Labs: 04/03/19 12:46 04/03/19 12:09 PT 23.5 Seconds (9.8-13.1) H 04/09/19 13:54 INR 2.0 04/09/19 13:54 APTT 43.8 Seconds (25.6-37.1) H 04/07/19 14:40 - Constitutional Appears: No Acute Distress - Head Exam Head Exam: NORMAL INSPECTION - Eye Exam Eye Exam: Normal appearance - ENT Exam ENT Exam: Mucous Membranes Moist - Respiratory Exam Respiratory Exam: Clear to Ausculation Bilateral, NORMAL BREATHING PATTERN - Cardiovascular Exam Cardiovascular Exam: REGULAR RHYTHM, +S1, +S2 - GI/Abdominal Exam GI & Abdominal Exam: Soft, Normal Bowel Sounds. absent: Distended, Tenderness - Extremities Exam Extremities Exam: absent: Calf Tenderness, Pedal Edema - Neurological Exam Neurological Exam: Alert, Awake, CN II-XII Intact, Oriented x3 - Skin Skin Exam: Dry, Warm Assessment and Plan - Assessment and Plan (Free Text) Assessment: 34 yo male patient admitted to Psych unit with MDD and suicidal ideation. Plan Protein S deficiency - VSS - Clinically stable - INR 2.0 yesterday - f/u daily INR MDD - continue management per Psych team. Case discussed with Dr Arreaga.
[2019-04-10] MEDS: Venlafaxine 37.5 mg ER Cap PO SCH (08:38)
[2019-04-10 11:38] LABS: INR 2.1; PROTHROMBIN TIME 24.6 Seconds (9.8-13.1)
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
== END 2019-04-10 14:47 | disposition home or self-care (01) | DRG 430 ==
LOC: H.ER 10:33 → H.ERHOLD 20:32 → H.PSYCH 04-04 10:00
PROVIDERS: ADMIT Psychiatry & Neurology Psychiatry; ATTEND Psychiatry & Neurology Psychiatry
PROC: GZHZZZZ Group Psychotherapy (ICD-10-PCS; principal; 2019-04-05)
DX: F31.30 Bipolar disorder, current episode depressed, mild or moderate severity, unspecified (principal); F14.10 Cocaine abuse, uncomplicated; D68.59 Other primary thrombophilia; F60.3 Borderline personality disorder; F25.9 Schizoaffective disorder, unspecified; R45.851 Suicidal ideations; E66.9 Obesity, unspecified; Z68.39 Body mass index [BMI] 39.0-39.9, adult; Z86.711 Personal history of pulmonary embolism; Z79.01 Long term (current) use of anticoagulants; Z88.2 Allergy status to sulfonamides